=== PATIENT | female | born 1950 | race Caucasian/White ===

== ENCOUNTER 2025-04-22 03:04 | Emergency (ER) | payer MEDICARE, OTHER, SELFPAY ==
[2025-04-22] VITALS (42 sets, daily range): BP systolic 105–160; BP diastolic 50–81; PULSE 55–91; TEMP 36.9; O2SAT 79–100; BMI 20.5
--- NOTE | 2025-04-22 03:41 | CT_ITS ---
The [place] [id number] Patient Name: AAKASH REYNOSO MRN: [id number] date: 1950 Sex: F Assigned Patient Location: ED.MAIN Current Patient Location: ED.MAIN Accession/Order Number: [id number] Exam Date: 04/22/2025 07:49 Report Date: 04/22/2025 07:59 At the request of: PILLO KNOTT MD Procedure: CT abdomen pelvis w con CT Abdomen and Pelvis withcontrast TECHNIQUE: Axial imaging with 2-D reconstruction.90 cc of Omnipaque 300. The CT exam was performed using one or more the following dose reduction techniques: Automated exposure control, adjustment of the MA and/or Kv according to patient size, or use of the iterative reconstruction technique. COMPARISON: 08/02/2021 History: Vomiting LIMITATIONS: None LOWER THORAX Unremarkable LIVER: Unremarkable GALLBLADDER: Cholelithiasis identified. BILE DUCTS: No dilatation SPLEEN: Unremarkable PANCREAS: Unremarkable ADRENAL GLANDS: Stable adenomatous change. KIDNEYS:Similar small renal cysts AORTA: No abdominal aortic aneurysm identified. Atherosclerosis. RETROPERITONEUM: No significant retroperitoneal abnormalities identified. MESENTERY:Unremarkable STOMACH:Unremarkable SMALL BOWEL: Moderate dilatation of multiple small bowel loops containing fluid and gas. Region of mild transition of distal small bowel near the terminal ileum. Regions of bowel anastomosis. APPENDIX: The appendix is normal. COLON: Distal diverticulosis nondistended colon containing fluid. URINARY BLADDER: Urinary bladder is unremarkable. REPRODUCTIVE SYSTEM: Reproductive structures are unremarkable. PNEUMOPERITONEUM: None PERITONEAL FLUID:None BONY STRUCTURES: Similar lumbar degeneration similar scoliosis. ABDOMINAL WALL: Unremarkable CT/CT abdomen pelvis w con IMPRESSION: Moderately distended fluid-filled small bowel loops with a smooth transition identified in distal bowel near terminal ileum. This may represent ileus versus partial obstruction. Complete obstruction not entirely excluded. Cholelithiasis. Impression dictated by: Fareed Marina M.D. 04/22/2025 7:59 AM Dictation Location: [place] [address] Electronically authenticated by: [id number] Y Date: 04/22/2025 07:59
--- NOTE | 2025-04-22 03:42 | ED.ABDPAIN1 ---
Documented by User: Johny Gibbons MD 04/24/25 19:29 HPI - Abdominal Pain General Chief Complaint: Abdominal Pain Stated Complaint: VOMITING, IN PAIN Time Seen by Provider: 04/22/25 03:38 Source: patient Mode of arrival: walk-in Limitations: no limitations History of Present Illness HPI narrative: patient presents from home complaining of recurrent vomiting and abdominal pain. Few episodes of diarrhea. No blood. Not short of breath. Feels weak Related Data Home Medications ?Medication ?Instructions ?Recorded ?Confirmed propranolol 80 mg tablet mg 04/22/25 topiramate 100 mg tablet mg 04/22/25 Allergies Allergy/AdvReac Type Severity Reaction Status Date / Time No Known Drug Allergies Allergy Verified 04/22/25 03:26 Review of Systems ROS Status of ROS 10 or more systems reviewed and unremarkable except as noted in history and below PFSH PFSH Social History Little interest or pleasure in doing things: not at all Feeling down, depressed, or hopeless: not at all Exam Constitutional Vital Signs, click to edit/add: Last Vital Signs Temp 98.5 F 04/22/25 03:27 Pulse 91 H 04/22/25 13:59 Resp 18 04/22/25 13:59 BP 106/50 04/22/25 13:59 Pulse Ox 97 04/22/25 13:59 O2 Del Method Room Air 04/22/25 03:27 Common normals: no apparent distress, average body habitus, oriented x3, no limitations, healthy appearing, alert and well nourished [facility] Common normals: normocephalic and head/scalp atraumatic Eye Common normals: EOMs intact bilaterally and conjunctivae normal Respiratory Common normals: normal respiratory effort, no retractions, no use of accessory muscles and clear to auscultation bilaterally Cardio Common normals: regular rate, regular rhythm, S1 normal heart sound and S2 normal heart sound GI Common normals: Normal to inspection, nondistended, normoactive bowel sounds present, soft to palpation and non-tender Extremity Common normals: normal to inspection and full ROM Neuro Common normals: oriented x3, CN's II-XII intact bilaterally, moves all extremities and no focal motor deficits Psych Appearance: grossly normal Course Vital Signs Vital signs: Vital Signs Pulse Oximetry 97 04/22/25 03:23 Temperature 98.5 F 04/22/25 03:27 Pulse Rate 91 H 04/22/25 13:59 Respiratory Rate 18 04/22/25 13:59 Blood Pressure 106/50 04/22/25 13:59 Pulse Oximetry 97 04/22/25 13:59 Oxygen Delivery Method Room Air 04/22/25 03:27 MDM - Abdominal Pain Lab Data Labs: Lab Results 04/22/25 04/22/25 Range/Units 03:55 05:45 WBC 15.3 H (4.0-11.0) 10^3/uL RBC 3.39 L (4.20-5.40) 10^6/uL Hgb 11.4 L (12.0-16.0) g/dL Hct 34.4 L (36.0-48.0) % MCV 101.5 H (81.0-99.0) fL MCH 33.6 (26.7-34.0) pg MCHC 33.1 (29.9-35.2) g/dL RDW 14.6 (11.0-15.0) % Plt Count 205 (150-450) 10^3/uL MPV 11.1 (9.5-13.5) fL Neut % (Auto) 84.5 H (43.0-75.0) % Lymph % (Auto) 9.0 L (20.5-60.0) % Dent % (Auto) 3.6 (1.7-12.0) % Eos % (Auto) 2.2 (0.9-7.0) % Baso % (Auto) 0.3 (0.2-2.0) % Neut # (Auto) 12.9 H (1.4-6.5) 10^3/uL Lymph # (Auto) 1.4 (1.2-3.8) 10^3/uL Dent # (Auto) 0.6 (0.3-0.8) 10^3/uL Eos # (Auto) 0.3 (0.0-0.7) 10^3/uL Baso # (Auto) 0.0 (0.0-0.1) 10^3/uL Abs Immat Gran (auto) 0.06 H (0.00-0.03) 10^3/uL Imm/Tot Granulo (auto) 0.4 (0.0-0.5) % Sodium 145 (136-145) mmol/L Potassium 3.5 (3.5-5.1) mmol/L Chloride 106 (98-107) mmol/L Carbon Dioxide 27.2 (21.0-32.0) mmol/L Anion Gap 15.3 BUN 25.0 H (7.0-18.0) mg/dL Creatinine 1.10 H (0.55-1.02) mg/dL Est GFR ( Amer) 59 L (>=60 mL/min/1.73m^2) Est GFR (Non-Af Amer) 48 L (>=60 mL/min/1.73m^2) BUN/Creatinine Ratio 22.7 Glucose 156 H (74-106) mg/dL Lactate 1.0 (0.4-2.0) mmol/L Calcium 10.3 H (8.5-10.1) mg/dL Total Bilirubin 0.5 (0.2-1.0) mg/dL AST 20 (15-37) U/L ALT 18 (14-59) U/L Alkaline Phosphatase 65 (46-116) U/L Troponin I High Sens <4.0 L (4.0-51.3) pg/mL Total Protein 7.7 (6.4-8.2) g/dL Albumin 3.9 (3.4-5.0) g/dL Globulin 3.8 g/dL Albumin/Globulin Ratio 1.0 Lipase 29.0 (16.0-77.0) U/L Urine Color Lt. yellow (YELLOW) Urine Clarity Clear (CLEAR) Urine pH 7.0 (5.0-9.0) Ur Specific [place] 1.010 (1.005-1.025) Urine Protein Negative (NEG/TRACE) mg/dL Urine Glucose (UA) Negative (NEGATIVE) mg/dL Urine Ketones Negative (NEGATIVE) mg/dL Urine Occult Blood Negative (NEGATIVE) Urine Nitrite Negative (NEGATIVE) Urine Bilirubin Negative (NEGATIVE) Urine Urobilinogen 0.2 (0.2-1.0) EU/dL Ur Leukocyte Esterase Trace A (NEGATIVE) Urine RBC 0-2 (0-2) #/HPF Urine WBC 5-10 A (NONE SEEN) #/HPF Ur Squamous Epith Cells Few A (NONE/RARE) #/LPF Urine Crystals Seen A (None Seen) #/HPF Amorphous Sediment Few Urine Bacteria Small A (NONE SEEN) #/HPF Urine Casts None seen (NONE SEEN) #/LPF Urine Mucus None seen (NONE SEEN) Ur Culture Indicated? Yes-[facility] [place] Discharge Plan Discharge Chief Complaint: Abdominal Pain Clinical Impression: Ileus, Partial obstruction of small intestine Patient Disposition: [facility] Time of Disposition Decision: 11:43 Discharge location: [facility] Discharge Date/Time: 04/22/25 15:01 Documented by User: Va Gomez MD 04/22/25 15:05 HPI - Abdominal Pain General Chief Complaint: Abdominal Pain Stated Complaint: VOMITING, IN PAIN Time Seen by Provider: 04/22/25 03:38 Related Data Home Medications ?Medication ?Instructions ?Recorded ?Confirmed propranolol 80 mg tablet mg 04/22/25 topiramate 100 mg tablet mg 04/22/25 Allergies Allergy/AdvReac Type Severity Reaction Status Date / Time No Known Drug Allergies Allergy Verified 04/22/25 03:26 PFSH PFSH Social History Little interest or pleasure in doing things: not at all Feeling down, depressed, or hopeless: not at all Exam Constitutional Vital Signs, click to edit/add: Last Vital Signs Temp 98.5 F 04/22/25 03:27 Pulse 91 H 04/22/25 13:59 Resp 18 04/22/25 13:59 BP 106/50 04/22/25 13:59 Pulse Ox 97 04/22/25 13:59 O2 Del Method Room Air 04/22/25 03:27 Course Vital Signs Vital signs: Vital Signs Pulse Oximetry 97 04/22/25 03:23 Temperature 98.5 F 04/22/25 03:27 Pulse Rate 91 H 04/22/25 13:59 Respiratory Rate 18 04/22/25 13:59 Blood Pressure 106/50 04/22/25 13:59 Pulse Oximetry 97 04/22/25 13:59 Oxygen Delivery Method Room Air 04/22/25 03:27 MDM - Abdominal Pain MDM Narrative Medical decision making narrative: The patient care transferred to nm at 7 AM awaiting the results of the CAT scan: CT of the abdomen pelvis shows possible partial small bowel obstruction or ileus the patient is feeling much better after initial treatment with Zofran we did place NG tube and the x-ray postplacement is adequate The plan initially was to admit the patient for observation but after Discussion with Dr Aviles and because we do not have general surgery in our facility I did discuss the case with the in [facility] but did not have any bed available for now as there is still 6 pending cases in ED , the patient had the plan discussed with her and the fact that she has to be observed in a facility that has general surgery pt then requested to be transferred to [facility] and I spoke with Dr.Gary Lubin and he accepted the patient awaiting bed assignment. Patient was placed on the IV maintenance fluid at 90 cc/h of normal saline and she was kept n.p.o. Lab Data Labs: Lab Results 04/22/25 04/22/25 Range/Units 03:55 05:45 WBC 15.3 H (4.0-11.0) 10^3/uL RBC 3.39 L (4.20-5.40) 10^6/uL Hgb 11.4 L (12.0-16.0) g/dL Hct 34.4 L (36.0-48.0) % MCV 101.5 H (81.0-99.0) fL MCH 33.6 (26.7-34.0) pg MCHC 33.1 (29.9-35.2) g/dL RDW 14.6 (11.0-15.0) % Plt Count 205 (150-450) 10^3/uL MPV 11.1 (9.5-13.5) fL Neut % (Auto) 84.5 H (43.0-75.0) % Lymph % (Auto) 9.0 L (20.5-60.0) % Dent % (Auto) 3.6 (1.7-12.0) % Eos % (Auto) 2.2 (0.9-7.0) % Baso % (Auto) 0.3 (0.2-2.0) % Neut # (Auto) 12.9 H (1.4-6.5) 10^3/uL Lymph # (Auto) 1.4 (1.2-3.8) 10^3/uL Dent # (Auto) 0.6 (0.3-0.8) 10^3/uL Eos # (Auto) 0.3 (0.0-0.7) 10^3/uL Baso # (Auto) 0.0 (0.0-0.1) 10^3/uL Abs Immat Gran (auto) 0.06 H (0.00-0.03) 10^3/uL Imm/Tot Granulo (auto) 0.4 (0.0-0.5) % Sodium 145 (136-145) mmol/L Potassium 3.5 (3.5-5.1) mmol/L Chloride 106 (98-107) mmol/L Carbon Dioxide 27.2 (21.0-32.0) mmol/L Anion Gap 15.3 BUN 25.0 H (7.0-18.0) mg/dL Creatinine 1.10 H (0.55-1.02) mg/dL Est GFR ( Amer) 59 L (>=60 mL/min/1.73m^2) Est GFR (Non-Af Amer) 48 L (>=60 mL/min/1.73m^2) BUN/Creatinine Ratio 22.7 Glucose 156 H (74-106) mg/dL Lactate 1.0 (0.4-2.0) mmol/L Calcium 10.3 H (8.5-10.1) mg/dL Total Bilirubin 0.5 (0.2-1.0) mg/dL AST 20 (15-37) U/L ALT 18 (14-59) U/L Alkaline Phosphatase 65 (46-116) U/L Troponin I High Sens <4.0 L (4.0-51.3) pg/mL Total Protein 7.7 (6.4-8.2) g/dL Albumin 3.9 (3.4-5.0) g/dL Globulin 3.8 g/dL Albumin/Globulin Ratio 1.0 Lipase 29.0 (16.0-77.0) U/L Urine Color Lt. yellow (YELLOW) Urine Clarity Clear (CLEAR) Urine pH 7.0 (5.0-9.0) Ur Specific [place] 1.010 (1.005-1.025) Urine Protein Negative (NEG/TRACE) mg/dL Urine Glucose (UA) Negative (NEGATIVE) mg/dL Urine Ketones Negative (NEGATIVE) mg/dL Urine Occult Blood Negative (NEGATIVE) Urine Nitrite Negative (NEGATIVE) Urine Bilirubin Negative (NEGATIVE) Urine Urobilinogen 0.2 (0.2-1.0) EU/dL Ur Leukocyte Esterase Trace A (NEGATIVE) Urine RBC 0-2 (0-2) #/HPF Urine WBC 5-10 A (NONE SEEN) #/HPF Ur Squamous Epith Cells Few A (NONE/RARE) #/LPF Urine Crystals Seen A (None Seen) #/HPF Amorphous Sediment Few Urine Bacteria Small A (NONE SEEN) #/HPF Urine Casts None seen (NONE SEEN) #/LPF Urine Mucus None seen (NONE SEEN) Ur Culture Indicated? Yes-[facility] [place] Discharge Plan Discharge Chief Complaint: Abdominal Pain Clinical Impression: Ileus, Partial obstruction of small intestine Patient Disposition: [facility] Time of Disposition Decision: 11:43 Discharge location: [facility] Discharge Date/Time: 04/22/25 15:01
[2025-04-22 04:03] LABS: Basophils Percent Auto 0.3 % (0.2-2.0); Eosinophils Absolute Auto 0.3 10^3/uL (0.0-0.7); Eosinophils Percent Auto 2.2 % (0.9-7.0); Hematocrit 34.4 % (36.0-48.0); Hemoglobin 11.4 g/dL (12.0-16.0); Immature Granulocytes Abs Auto 0.06 10^3/uL (0.00-0.03); Immature Granulocytes Pct Auto 0.4 % (0.0-0.5); Lymphocytes Absolute Auto 1.4 10^3/uL (1.2-3.8); Mean Corpuscular HGB Conc 33.1 g/dL (29.9-35.2); Mean Corpuscular Hemoglobin 33.6 pg (26.7-34.0); Mean Corpuscular Volume 101.5 fL (81.0-99.0); Mean Platelet Volume 11.1 fL (9.5-13.5); Monocytes Absolute Auto 0.6 10^3/uL (0.3-0.8); Monocytes Percent Auto 3.6 % (1.7-12.0); Neutrophils Absolute Auto 12.9 10^3/uL (1.4-6.5); Neutrophils Percent Auto 84.5 % (43.0-75.0); Platelet Count 205 10^3/uL (150-450); Red Blood Count 3.39 10^6/uL (4.20-5.40); Red Cell Distribution Width 14.6 % (11.0-15.0); White Blood Count 15.3 10^3/uL (4.0-11.0)
[2025-04-22] MEDS: 0.9 % SODIUM CHLORIDE 1,000 ML 999 ML IV (04:12)
[2025-04-22] MEDS: ONDANSETRON PF 4 MG/2 ML VIAL IV (04:15)
[2025-04-22] MEDS: MORPHINE SULFATE 2 MG/ML SYRINGE IV (04:16)
[2025-04-22 04:18] LABS: Alanine Aminotransferase 18 U/L (14-59); Albumin Level 3.9 g/dL (3.4-5.0); Alkaline Phosphatase 65 U/L (46-116); Anion Gap 15.3; Aspartate Amino Transferase 20 U/L (15-37); BUN Creatinine Ratio 22.7; Bilirubin Total 0.5 mg/dL (0.2-1.0); Calcium 10.3 mg/dL (8.5-10.1); Carbon Dioxide 27.2 mmol/L (21.0-32.0); Chloride 106 mmol/L (98-107); Estimated GFR (African America 59 (>=60 mL/min/1.73m^2); Estimated GFR (Non-African Ame 48 (>=60 mL/min/1.73m^2); Globulin 3.8 g/dL; Glucose 156 mg/dL (74-106); Potassium 3.5 mmol/L (3.5-5.1); Sodium 145 mmol/L (136-145); Total Protein 7.7 g/dL (6.4-8.2)
[2025-04-22 04:22] LABS: Troponin I High Sensitivity <4.0 pg/mL (4.0-51.3)
[2025-04-22 05:54] LABS: Bilirubin Urine NEGATIVE (NEGATIVE); Blood Urine NEGATIVE (NEGATIVE); Clarity Urine CLEAR (CLEAR); Color Urine LT. YELLOW (YELLOW); Glucose Urine UA NEGATIVE (NEGATIVE); Ketones Urine NEGATIVE (NEGATIVE); Leukocyte Esterase Urine TRACE (NEGATIVE); Nitrite Urine NEGATIVE (NEGATIVE); Protein Urine NEGATIVE (NEG/TRACE); Urobilinogen Urine 0.2 EU/dL (0.2-1.0)
[2025-04-22 06:05] LABS: Amorphous Sediment Urine FEW; Bacteria Urine SMALL #/HPF (NONE SEEN); Cast Seen? NONE SEEN #/LPF (NONE SEEN); Crystals Seen? Seen #/HPF (None Seen); Mucus Urine NONE SEEN (NONE SEEN); RBC Urine 0-2 #/HPF (0-2); Squamous Epithelial Cell Urine FEW #/LPF (NONE/RARE); Urine Culture Indicated YES-FRMC
--- NOTE | 2025-04-22 09:17 | XR_ITS ---
The [address] [address] Patient Name: AAKASH REYNOSO MRN: [id number] date: 1950 Sex: F Assigned Patient Location: ER Current Patient Location: ER Accession/Order Number: [id number] Exam Date: 04/22/2025 09:34 Report Date: 04/22/2025 09:37 At the request of: RUDOLPH DAVENPORT MD Procedure: XR abdomen 1V SINGLE VIEW ABDOMEN 0925 hours COMPARISON: CT 04/22/2025 CLINICAL DATA: NG tube placement. AP erect view of the lower chest and abdomen was obtained. This demonstrates an NG tube extending into the stomach. The side-port is a couple centimeters beyond the GE junction. The lung bases are clear. No dilated bowel is visualized in the [id number]. XR/XR abdomen 1V IMPRESSION: NG TUBE WITHIN THE STOMACH. Impression dictated by: Jessenia Haines M.D. 04/22/2025 9:37 AM Dictation Location: [place] [address] Electronically authenticated by: [id number] Y Date: 04/22/2025 09:37
[2025-04-22] MEDS: 0.9 % SODIUM CHLORIDE 1,000 ML 90 ML IV (11:10)
--- NOTE | 2025-04-22 14:50 | PC.NURSE ---
Report given to Tawny emt with [facility]
== END 2025-04-22 15:01 | disposition short-term general hospital (02) ==
PROVIDERS: Emergency Provider Internal Medicine; PCP Family Medicine
DX: K56.600 Partial intestinal obstruction, unspecified as to cause (principal); K56.7 Ileus, unspecified; R82.998 Other abnormal findings in urine
CPT/HCPCS: 36415; 74018; 74177; 80053; 81001; 83605; 83690; 84484; 85025; 87086; 96361; 96374; 96375; 99285; J2270; J2405; Q9967

== ENCOUNTER 2025-07-22 13:10 | Outpatient (OUT) | payer MEDICARE, OTHER, SELFPAY ==
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
== END 2025-07-22 13:11 | disposition home or self-care (01) ==
LOC: PM 13:11
PROVIDERS: PCP Family Medicine; Visit Provider Nurse Practitioner
DX: M48.062 Spinal stenosis, lumbar region with neurogenic claudication (principal); M54.6 Pain in thoracic spine; M79.18 Myalgia, other site; M47.816 Spondylosis without myelopathy or radiculopathy, lumbar region
CPT/HCPCS: 72070; G0463

== ENCOUNTER 2025-07-22 14:48 | Outpatient (OUT) | payer MEDICARE, OTHER, SELFPAY ==
--- NOTE | 2025-07-22 15:04 | XR_ITS ---
The [address] [address] Patient Name: AAKASH REYNOSO MRN: [id number] date: 1950 Sex: F Assigned Patient Location: [facility] Current Patient Location: [facility] Accession/Order Number: [id number] Exam Date: 07/22/2025 15:15 Report Date: 07/22/2025 23:25 At the request of: KARON LANG NP Procedure: XR thoracic spine 2V XR thoracic spine 2V 07/22/2025 3:26 PM SIGNS AND SYMPTOMS: ^Thoracic Pain PROTOCOLS: 3 views of the thoracic spine COMPARISON: None FINDINGS: There is preservation of vertebral body heights and intervertebral disc spaces. There is a dextro convex curvature. The bones are otherwise in anatomic alignment No evidence of fracture or bony destructive lesion. XR/XR thoracic spine 2V IMPRESSION: No fracture or subluxation. There is a dextro convex curvature. Impression dictated by: Waylon Ramon M.D. 07/22/2025 11:25 PM Dictation Location: [place] [address] Electronically authenticated by: [id number] Y Date: 07/22/2025 23:25
== END 2025-07-22 14:49 | disposition home or self-care (01) ==
LOC: RAD 14:50
PROVIDERS: PCP Family Medicine; Visit Provider Nurse Practitioner
DX: M54.6 Pain in thoracic spine (principal)
CPT/HCPCS: 72070

== ENCOUNTER 2025-07-28 13:53 | Outpatient (RCR) | payer MEDICARE, OTHER, SELFPAY | END 2025-09-17 09:26 | disposition home or self-care (01) | LOC: PT 13:53 | PROVIDERS: PCP Family Medicine; Visit Provider Nurse Practitioner | DX: M54.6 Pain in thoracic spine (principal); M48.062 Spinal stenosis, lumbar region with neurogenic claudication | CPT/HCPCS: 97012; 97110; 97112; 97163; G0283 ==

== ENCOUNTER 2025-09-09 13:41 | Outpatient (OUT) | payer MEDICARE, OTHER, SELFPAY ==
--- OUTSIDE RECORDS SUMMARY | 2025-09-02 19:51 | XMS_ITS | Continuity of Care Document ---
Author Organization [facility] Address [address] [place] [address] Phone Care Team Providers Care Stem Lead Former Name Role Phone Cassie Tejada MD Primary Care Provider Cassie Tejada MD Referring Provider Terry Hardwick MD Attending Provider [phone] Astrid Merrill APRN Attending Provider Cassie Tejada MD Attending Provider [phone] Maryam Christianson MD Attending Provider Nick Posada MD Attending Provider [phone] Terry Hardwick MD Referring Provider Elissa Bowman MD Attending Provider [phone] Care Teams Patient Care Team Team Status: Active Member Role/Relationship Status Dates Cassie Tejada MD Primary Care Provider Active Visit Care Team Team Status: Inactive Member Role/Relationship Status Dates Cassie Tejada MD Primary Care Provider Active Start: June 23, 2025 End: June 23, 2025Esperanza Camarillo ProviderActiveStart: June 23, 2025 End: June 23Barrett Liu ProviderActiveStart: June 23, 2025 End: June 23, 2025 Visit Care Team Team Status: Inactive Member Role/Relationship Status Dates Cassie Tejada MD Primary Care Provider Active Start: June 23, 2025 End: June 23ephen Tann , MDAttending ProviderActiveStart: June 23, 2025 End: June 23, 2025 Visit Care Team Team Status: Inactive Member Role/Relationship Status Dates Cassie Tejada MD Primary Care Provider Active Start: June 29, 2025 End: June 29trishMiguel Posada ProviderActiveStart: June 29, 2025 End: June 29, 2025 Visit Care Team Team Status: Inactive Member Role/Relationship Status Dates Cassie Tejada MD Primary Care Provider Active Start: July 07, 2025 End: July 07, 2025Stjanene Hardwick , KAYttending ProviderActiveStart: July 07, 2025 End: July 07, 2025 Visit Care Team Team Status: Inactive Member Role/Relationship Status Dates Cassie Tejada MD Primary Care Provider Active Start: July 12, 2025 End: July 12, 2025Barrett Camarillo ProviderActiveStart: July 12, 2025 End: July 12, 2025 Visit Care Team Team Status: Inactive Member Role/Relationship Status Dates Cassie Tejada MD Primary Care Provider Active Start: July 14, 2025 End: July 14, 2025ImaMaria D Johnsonending ProviderActiveStart: July 14, 2025 End: July 14, 2025 Patient Care Team Team Status: Active Member Role/Relationship Status Dates Cassie Tejada MD Primary Care Provider Active Start: August 10, 2025 Maria D Pfeifferending ProviderActiveStart: August 10, 2025 Patient Care Team Team Status: Active Member Role/Relationship Status Dates Cassie Tejada MD Primary Care Provider Active Start: September 02, 2025 Esperanza Arroyo ProviderActiveStart: September 02, 2025 Terry Hardwick MDOther ProviderActiveStart: September 02, 2025 Barrett Vickers ProviderActiveStart: September 02, 2025 Chief Complaint and Reason for Visit Chief Complaint Admit Date Atherosclerotic heart disease June 1:32pm I25.10 June 23, 2025 1: 34pm Follow up after MRI *VIKRAM SB TO ND June 29, 2025 12:55pm R00.1 R53.873 R07.9 July 07, 2025 3:06pm Wellness July 12, 2025 1:27pm Refer: constipation/get established. Sep tember 2024 11:31am I25.10 R07.9 R94.31 R00.1 R00.1 R07.9 R5 3.83 September 02, 2025 9:28am Reason for Visit Admit Date Abnormal EKG June 23, 2025 1: 32pm Bradycardia June 23, 2025 1: 32pm Cardiac murmur, previously undiagnosed A ugust 2024 1:32pm Chest pain June 23, 2025 1: 32pm Fatigue June 23, 2025 1: 32pm Abnormal MRI, lumbar spine June 29, 2025 12:55pm Benign essential tremor June 29 12:55pm Low back pain June 29, 2025 12 :55pm Polyneuropathy June 29, 2025 12 :55pm Vertigo June 29, 2025 12 :55pm Abnormal MRI, lumbar spine July 1:27pm Benign essential tremor July 12 025 1:27pm Medicare annual wellness visit, subseque nt July 12, 2025 1:27pm Screening mammogram for breast cancer Se pt2024 1:27pm Change in bowel habits July 14 025 11:31am Diarrhea July 14, 2025 11:31am Reason for Referral Type Reason(s) Provider Provider Contact Information P rovider Address Start Date Altered bowel habits Diarrhea R19.4 - Change in bowel habit,R19.7 - Diarrhea, btlmwzdqbhoM68.4 - Change in bowel habit,R19.7 - Diarrhea, unspecified[facility] Health Concerns Concerns Start Date Thin low body weight elderly female would be at elevated risk for bleeding complications on a potential future aspirin regimen. Allergies, Adverse Reactions, Alerts Allergen Type Severity Reaction Last Updated Verified Status Comments ibandronate sodium Allergy Unknown Hives 2024 12:21pm Yes Active primidoneAllergyUnknownHivesSe2024 12:21pmYesActiveOnset Date: 05/14/2016, Onset Date: 02/27/2016gabapentinAllergyUnknownDizzinessSept2024 12:21pmYesActivetrouble focusing, vision changespregabalinAllergy UnknownDizzinessSeptember 2024 12:21pmYesActive Social History Smoking Status Status Start Date End Date Date of Observa tion Ex-smoker (finding) August 03, 2025 12:22pm Observation Status Observation Response Date of Response Legal Sex Female (finding) [facility] 1949 Family History Relationship Condition Age at Onset Recorded Date/T juanito brother Unknown fatherFamily history of lung cancerUnknownDeceasedUnknownMalignant neoplasm UnknownmotherDeceasedUnknownDementiaUnknownCerebral aneurysmUnknown Problems Active Problems Problem Diagnosis/Recorded Date Onset Date Status C omments Change in bowel habits July 14, 2025 11:44am Unknow n Active Abnormal MRI, lumbar spineAugust 2024 3:16pmUnknownActiveUTI (urinary tract infection)September 18, 2024 7:14amUnknownActiveMedicare annual wellness visit, subsequentSeptember 2024 11:51amUnknownActiveScreening for colon cancerJanuary 2024 3:36pmUnknownActiveBenign essential tremorAugust 2023 3:55pmUnknownActivePeripheral neuralgiaAugust 2023 2:20pmUnknownActive Screening mammogram for breast cancerNovember 2023 3:19pmUnknownActiveLow back painAugust 2024 2:20pmUnknownActiveFatigueAugust 2024 2:22pm UnknownActiveInadequate oral nutritional intakeJuly 2024 12:17pmUnknown ActiveCAD (coronary artery disease)May 17, 2025 12:55pmUnknownActive BradycardiaAugust 2024 2:22pmUnknownActiveDiarrheaJuly 2024 8:57am UnknownActiveDiarrheaSeptember 2024 11:40amUnknownActiveHistory of colostomy reversalJuly 2024 12:57pmUnknownActiveLeukocytosisJuly 2024 1:45amUnknownActiveLow serum vitamin U63Oxuw 2024 12:19pmUnknown ActiveVertigoAugust 2024 2:19pmUnknownActivePolyneuropathyAugust 2024 2:19pmUnknownActiveAbnormal EKGAugust 2024 2:22pmUnknownActivePartial small bowel obstructionJuly 2024 12:57pmUnknownActiveChest painAugust 2024 2:22pmUnknownActiveConstipationJuly 2024 12:51pmUnknownActive Cardiac murmur, previously undiagnosedAugust 2024 2:22pmUnknownActive Inactive/Resolved Problems Problem Diagnosis/Recorded Date Onset Date Status C omments UTI (urinary tract infection) May 16, 2025 11:17pm Unkn own Resolved Mass of axillary tail of left breastJanuary 2018 12:09pmUnknownResolved Problem List clean-up per request of Phys. EHR CmteIntractable nausea and vomitingJuly 2024 11:17pmUnknownResolved Medications Medication Status Dose Units Route Directions Qty Days Refills S tart Date Stop Date End Date Reason(s) Instructions Adherence Sod Picosulf-Mag Ox-Citric Ac (Clenpiq) 10 mg-3.5 gram- 12 gram/175 mL solution Discontinued 175 ML PO Daily 1 1 0 Deniz quiroz 2024 1:00am December 17, 2024 12:27pmplease follow instructions provided by Dr. Dietz's office.Ondansetron 4 mg tablet,epnxdoofclsjohEqkfwlbygvmb4JSOMF5C246Idlf 2024 12:00amJuly 2024 6:14pmPropranolol 80 mg lhlyvrJpnlwvaxiygy18OMZF Twice fwfqh626Ezrptg 13th, 2025 12:00amA2024 1:40pmTopiramate 100 mg wgvzthBrfexq595AVERAterf yglyq15192Goriksk 2024 10:17amUnknownFluticasone Propionate 50 mcg/actuation spray,usfbdwrravTpihhe8EQUCPAOMVNUFPFEXwsxc887 August 16, 2025 11:12amadminister into each nostrilUnknownPropranolol 80 mg mlmzqgJfskibvnbrtt77CGRUMmtno dailyJuly 2024 12:00amJuly 2024 12:42pmTopiramate 100 mg kftnpaAghzjfhmvang394IJQCKnpmxEews 2024 12:00am June 29, 2025 2:26pmLoperamide 2 mg JbtxzldMtxmhp3LYAWX9I as needed for Bzozlxcv0344Igjd 2024 12:00amUnknownTopiramate 100 mg tabletDiscontinued 100MGPOTwice dailyAugust 2024 2:26pmOctober 2024 10:17amVitamin B Complex jwpajjoXmruvx9VIOVULzmybOadmvllum 30th, 2025 12:00amUnknownAspirin (Adult Aspirin Regimen) 81 mg tablet,delayed release (DR/EC)Uxipob57TENSSquqs August 03, 2025 12:00amUnknownPropanolDiscontinuedJanuary 2018 1:00am July 02, 2024 10:16amToprimateDiscontinuedJanuary 2018 1:00amNovember 2023 9:23amMeclizine 25 mg cvhhirDrjudfqehqtz52ZWAVVxrzlPbuexhre 2024 1:00amJuly 2024 4:35pmPregabalin 75 mg npryfycIhzxewsrzqnc83IFXTRtpcn daily December 17, 2024 1:00amJuly 2024 1:32pmMultivitamin (One Daily Multivitamin) yxxtfkRfskuf2HKWCNPvsxdDenrft 2024 12:00amUnknownPropranolol 80 mg cziysjBamydu34RFLRLjwxx dailyAugust 2024 1:40pmUnknownMagnesium Aspart,Citrate,Oxide 400 mg magnesium capsuleDiscontinuedMGPOAugust 2023 12:00amAugust 2023 2:10pmGabapentin 300 mg hkxhrttYtimbkritehv944IXWQVwiuv at bedtimeAugust 2023 12:00amAugust 2023 2:20pmPregabalin (Lyrica) 25 mg dyepmtpElwwwjgjkbii76XSLCCcwnp at qtefmgy44281Aekfjk 2024 12:00am September 10, 2024 2:53pmPeripheral neuralgia Neuralgia and neuritis, unspecifiedPropranolol 20 mg vqtedzIvigbmmintya05ZHNV Kcltb559Qaknrs 2023 12:00amJuly 2024 6:13pmTopiramate (Topamax) 50 mg dkfhlsEnyolokeuixe77NFHOEmuop dailySeptember 10, 2024 1:00amJuly 2024 6:13pmFreeTextSi tablet Orally Twice a day; Note: Source Status: Not- Taking\PRN2 QAM and 2 QHS; Provider: Terrell Matthews ( )Potassium Chloride 10 mEq tablet,ER particles/bswfrbedPdmoczdnaecw9KADJDKjidz daily September 10, 2024 1:00amNovember 2023 2:52pmFreeTextSi tablet with food Orally Twice a day; Note: Source Status: Start; Refills: 0; Qty: 30Tablet; Provider: Terrell Matthews ECalcium Carbonate-Vitamin D3 600 mg-5 mcg (200 unit) vsnqmsWhfhms0SRJQOBdwpvNttxcxey 7th, 2024 1:00amMedication Name: Calcium + D; Note: Source Status: Not-Taking\PRN; Provider: Terrell Matthews ( ) UnknownBiotin 5 mg jfuslbNxmsat9AZJEKwpblBkcrcomi 7th, 2024 1:00amUnknown Cyanocobalamin (Vitamin B-12) 1,000 mcg tpgssbzIpsljt2925RZOGSJosylRtouxzsl 7th, 2024 1:00amUnknownSulfamethoxazole-Trimethoprim 800-160 mg tabletDiscontinued1 TABPOTwice bdzdk094CemkihgxSeptember 10, 2024 1:00amFebruary 2024 12:28pm Fluticasone Propionate 50 mcg/actuation spray,doictwkbdkKjzvuahvwqcg2PCKQQ ALYQACDQMRWvzsr631Wbadcobwi 8th, 2025 12:00amOctober 2024 11:13am administer into each nostrilvitamin b complexDiscontinuedPOSept2024 12:00amSeptember 2024 12:22pm Immunizations Immunization Event Date Not Given Reason Dose Number [employer] Operator Lot Number Reason(s) Given Vaccine Information Statement (VIS) Detail Administration Location COVID-19 Sylwia Antonio (Pfizer) September 03, 2021 COVID-19 mRNASylwia (Pfizer)April 06, 2022Fluzone TIV High-Dose 65YR+ July 12, 2025U8800[facility] unspecified formulationSeptember 2016influenza, unspecified formulationSeptneumococcal Conjugate Vaccine, 13 valentSeptember 2016Pneumococcal Conjugate Vaccine, 20 valentSeptember 2021 Procedures Procedure Date Performed Status CT heart calcium score wo July 07, 2025 3: 16pm completed Relevant Diagnostic Tests and/or Laboratory Data Laboratory Results Test Collection Date/Time Result Date/Time Result Interpretation Reference Range Result Comment Performing Site Albumin (Send Out) August 10, 2025 3:30pm August 10, 2 025 3:30pm 4.09 g/dL 3.43-5.41Serum ImmunofixationOct2024 3:30pmOct2024 3:30pmNo M protein is identified.No M protein is identified.Free Bonaparte/Lambda Light Chain RatioOct2024 3:30pmOctober 2024 3:30pm1.540.26-1.65CA 15-3 AntigenOct2024 3:30pmOctober 2024 2:02pm17.0 U/mL<26.0The CA 15-3 test methodology used is the Electrochemiluminescence Immunoassay by [employer].Results obtained with different methods or kits cannot be used interchangeably.Serum Total ProteinOct2024 3:30pmOctober 2024 2:02pm7.0 g/dL6.3-8.0FolateOct2024 3:30pmOctober 2024 3:30pm>20.0 ng/mL>4.7A result of > 20 ng/mL is not necessarily indicative of a pathologic or treatable condition: it reflects a limitation of the test methodology.Assay reference range: 4.8 to 24.2 ng/mL. Suitable fordetection of folate deficiency.Reference:Folate III (Folate III) [package insert V 1.0 Iraqi]. [employer]vin [employer], [place], [place]: September 2015.Vitamin B12 LevelAugust 10, 2025 3:30pmOctober 2024 2:02pm>2000 pg/mLAbove high ccahtu925-1787Erxn LevelAugust 10, 2025 3:30pmOctober 2024 1:42pm72 ug/yT27-202Pinxbsvfgpg August 10, 2025 3:30pmOctober 2024 1:95qp561 mg/kE03-889Nqjztcd Stimulating Hormone 3rd GenOct2024 3:30pmOctober 2024 3:30pm3.940 mIU/L0.270-4.200FerritinAugust 10, 2025 3:30pmOctober 2024 1:18ej287.0 ng/mLAbove high uvetep23.7-205.1Alanine Aminotransferase (ALT/SGPT)August 10, 2025 3:30pmOctober 2024 3:30pm16 U/L7-38Basophils # (Auto)August 10, 2025 3:30pmOctober 2024 3:30pm0.03 k/uL<0.93Rzhpv-7-FhuingganNsuptiz 7th, 2025 3:30pmOctober 2024 3:30pm0.28 g/dL0.18-0.43Leuk/Lymph Sign Pathologist (Misc)August 10, 2025 3:30pmOctober 2024 3:30pmReviewed by Shelley Eugene MDFrconnie Lambda Light Chains, QuantAugust 10, 2025 3:30pmOctober 2024 3:30pm23.9 mg/L5.7-26.3Rarely, increased serum free light chains levels may not be detected or accurately quantified due to prozone phenomenon or in high viscosity samples using this immunoturbidimetric assay. Correlation with other laboratory results and clinical findings is recommended. The Lambda Free Light Chain was performed using the Binding Site Optilite immunoturbidimetric method. Result obtained with differentassay methods or kits cannot be used interchangeably.Total Iron Binding CapacityAugust 10, 2025 3:30pmOctober 2024 1:00ox871 ug/kA275-214QdnesymXxaifnp 7th5 3:30pmOctober 2024 3:30pm4.2 g/dL3.9-4.9Basophils (%) (Auto)August 10, 2025 3:30pmOctober 2024 3:30pm0.5 %Sgtgl-2-DqsfskkiqSsfszqj 7th, 2025 3:30pmOctober 2024 3:30pm0.65 g/dL0.42-0.98Free Bonaparte Light Chains, QuantOct2024 3:30pm August 10, 2025 3:30pm36.8 mg/LAbove high normal3.3-19.4Rarely, increased serum free light chains levels may not be detected or accurately quantified due to prozone phenomenon or in high viscosity samples using this immunoturbidimetric assay. Correlation with other laboratory results and clinical findings is recommended. The Bonaparte Free Light Chain was performed using the Binding Site Optilite immunoturbidimetric method. Result obtained with different assay methods or kits cannot be used interchangeably.Iron Saturation August 10, 2025 3:30pmOctober 2024 1:42pm30.0 %15.0-57.0Aspartate Amino Transf (AST/SGOT)August 10, 2025 3:30pmOctober 2024 3:30pm22 U/L13-35 Eosinophils # (Auto)August 10, 2025 3:30pmOctober 2024 3:30pm0.30 k/uL <0.46Beta GlobulinsOct2024 3:30pmOctober 2024 3:30pm1.09 g/dL 0.61-1.17Total BilirubinOct2024 3:30pmOctober 2024 3:30pm0.2 mg/dL0.2-1.3Eosinophils (%) (Auto)August 10, 2025 3:30pmOctober 2024 3:30pm4.9 %Gamma GlobulinsOct2024 3:30pmOctober 2024 3:30pm0.90 g/dL0.53-1.51Carbon Dioxide LevelAugust 10, 2025 3:30pmOctober 2024 3:30pm22 mmol/X94-47ZhqwhjnfaqFcxhxic 7th, 2025 3:30pmOct2024 3:30pm 10.9 g/dLBelow low soaxsg19.5-15.5Protein Electrophoresis NoteOct2024 3:30pmOct2024 3:30pmNo definitive M protein is identified on protein electrophoresis.No definitive M protein is identified on protein electrophoresis.Chloride LevelOct2024 3:30pmOct2024 3:30pm 110 mmol/LAbove high kuwjcl66-251Yyrqcjgzlvv # (Auto)August 10, 2025 3:30pm August 10, 2025 3:30pm2.84 k/uL1.00-4.00Protein Electrophoresis M-SpikeOct2024 3:30pmOct2024 3:30pm0.00 g/dL<=0.00CreatinineOct2024 3:30pmOct2024 3:30pm1.21 mg/dLAbove high normal0.58-0.96 Lymphocytes (%) (Auto)August 10, 2025 3:30pmOctober 2024 3:30pm46.5 % Miscellaneous Test 6August 10, 2025 3:30pmOct2024 3:30pmSee comment Not Applicable.Random GlucoseAugust 10, 2025 3:30pmOct2024 3:30pm89 mg/wT29-62Yoq Stateless Diabetes Association (ADA) provides guidance for cutoff values for fasting glucose andrandom glucose. The ADA defines fasting as no caloric intake for at least 8 hours. Fasting plasma glucose results between 100 to 125 mg/dL indicate increased risk for diabetes (prediabetes).Fasting plasma glucose results greater than or equal to 126 mg/dL meet the criteria for diagnosis of diabetes. In the absence of unequivocal hyperglycemia, results should be confirmed by repeat testing. In a patient with classic symptoms of hyperglycemia or hyperglycemic crisis, random plasma glucose resultsgreater than or equal to 200 mg/dL meet the criteria for diagnosis of diabetes.Reference: Standardsof Medical Care in Diabetes 2016, Stateless Diabetes Association. Diabetes Care. 2016.39(Suppl 1).Monocytes # (Auto)August 10, 2025 3:30pm August 10, 2025 3:30pm0.64 k/uL<0.87Miscellaneous Test CommentOct2024 3:30pmOctober 2024 3:30pmReviewed by Shelley Eugene, LEONELotassium LevelOct2024 3:30pmOctober 2024 3:30pm3.6 mmol/LBelow low normal 3.7-5.1Neutrophils # (Auto)August 10, 2025 3:30pmOct2024 3:30pm2.29 k/uL1.45-7.50Neutrophils (%) (Auto)August 10, 2025 3:30pmOct2024 3:30pm37.4 %Sodium LevelOct2024 3:30pmOctober 2024 3:92we130 mmol/LAbove high gnyveh925-872Cvuzntnzp Red Blood Cells #August 10, 2025 3:30pmOct2024 3:30pm<0.01 k/uL<0.01Blood Urea NitrogenAugust 10, 2025 3:30pmOctober 2024 3:30pm30 mg/dLAbove high normal7-21Platelet Count August 10, 2025 3:30pmOct2024 3:70pw506 k/gI480-300Byatwjmn PhosphataseAugust 10, 2025 3:30pmOctober 2024 3:30pm62 U/N62-653Xjuk Corpuscular HemoglobinOct2024 3:30pmOctober 2024 3:30pm32.9 pg 26.0-34.0Calcium LevelOct2024 3:30pmOctober 2024 3:30pm9.4 mg/dL 8.5-10.2Mean Corpuscular Hemoglobin ConcentOct2024 3:30pmOctober 2024 3:30pm32.6 g/dL30.5-36.0Anion GapAugust 10, 2025 3:30pmOctober 2024 3:30pm13 mmol/L8-15Mean Corpuscular VolumeOct2024 3:30pmOctober 2024 3:08qy493.9 fLAbove high chqywz11.0-100.0Estimated GFR (CKD-EPI)August 10, 2025 3:30pmOct2024 3:30pm47 mL/min/1.73m???Below low normal>=60 Estimated Glomerular Filtration Rate (eGFR) is calculated using the 2020 CKD-EPI creatinine equation. This equation utilizes serum creatinine, sex, and age as parameters. The creatinine assay has traceable calibration to isotope dilution- mass spectrometry. Refer to KDIGO guidelines for clinical interpretation. In patients with unstable renal function, e.g. those with acute kidney injury, the eGFRmay not accurately reflect actual GFR.Red Blood CountOctober 2024 3:30pmOct2024 3:30pm3.31 m/uLBelow low normal3.90-5.20Hematocrit August 10, 2025 3:30pmOctober 2024 3:30pm33.4 %Below low kpbiwj84.0-46.0 Monocytes (%) (Auto)August 10, 2025 3:30pmOct2024 3:30pm10.5 % Corrected White Blood CountOct2024 3:30pmOct2024 3:30pm6.11 k/uL3.70-11.00Nucleated RBC Relative Count (auto)August 10, 2025 3:30pmOctober 2024 3:30pm0.0 /100{WBC}Red Cell Distribution WidthOct2024 3:30pm August 10, 2025 3:30pm14.4 %11.5-15.0Mean Platelet VolumeOct2024 3:30pmOct2024 3:30pm10.8 fL9.0-12.7Differential CommentOct2024 3:30pmOctober 2024 3:30pmAutoImmature Granulocyte # (Auto)August 10, 2025 3:30pmOct2024 3:30pm<0.03 k/uL<0.10Immature Granulocyte % (Auto) August 10, 2025 3:30pmOctober 2024 3:30pm0.2 % Diagnostic Imaging Reports Author Vishal Alston [facility] CenterAuthoredSeptember 2024 4:52pmReport Dictated Date/TimeDictated ByStatusRadiology ReportSeptember 2024 4:52pm Vishal Alston Jr [facility] [place] [address] [place] [id number] Scan Report Signed Patient: Yary Schuler MR#: [id number] : 1950 Acct:[id number] Age/Sex: 74 / F ADM Date: 5 Loc: CT Room: Type: [facility] Attending Dr: Terry Hardwick MD Copies to: Terry Hardwick MD~ Ordering Provider: Terry Hardwick MD Date of Service: 07/07/25 CT/CT heart calcium score wo: R00.1 - Bradycardia, unspecified CT heart calcium score w/o contrast REASON FOR EXAM: Bradycardia. Fatigue. Chest pain. TECHNIQUE: Prospective gated imaging of the heart were obtained for calcium evaluation of the coronary arteries. Agatston score was calculated. The CT exam was performed using one or more the following dose reduction techniques: Automated exposure control, adjustment of the MA and/or Kv according to patient size, or use of the iterative reconstruction technique. COMPARISON:None FINDINGS: LEFT MAIN: 0 LEFT ANTERIOR DESCENDIN.28 CIRCUMFLEX: 182.96 RIGHT CORONARY ARTERY: 0 TOTAL AGATSTON CALCIUM SCORE: 198.25 This calcium score places the patient at the 71st percentile. EXTRACARDIAC STRUCTURES: No evidence of mediastinal or hilar lymphadenopathy. No pericardial effusion. Visualized lungs demonstrate no acute process. No lung nodule is seen. Limited images of the upper abdomen demonstrate no acute findings. CT/CT heart calcium score wo IMPRESSION: No significant extracardiac CT findings. CALCIUM SCORE INTERPRETATION (100-299) Risk is moderately increased. Treatment recommendation - moderate to high intensity statin plus ASA 81mg. Source: January 2018 - Coronary artery calcium data and reporting system. An expert consensus document of the Society of Cardiovascular Computed Tomography) Impression dictated by: Vishal Alston Jr., D.O. 07/07/2025 4:54 PM Dictation Location: [place] [address] Transcribed By: [facility] 07/07/25 1654 Dictated By: Vishal Alston Jr, DO 07/07/25 1652 Signed By: <Electronically signed by Vishal Alston Jr, DO in [place]> 07/07/25 1654 Vital Signs Vital Reading Result Reference Range Collection Date/Time Height 60 [in_i] June 23, 2025 1:20owNzggyo04.72 kgAugust 2024 1:48pmHeart Rate67 /min 60-100August 2024 1:48pmRespiratory rate18 /ryy58-96Zqgplk 2024 1:48pmOxygen saturation by Pulse swimblfy97 %95-100August 2024 1:48pmBP Uwywkuau562 mm[Hg]100-140August 2024 1:48pmBP Infacndua07 mm[Hg]60-100 June 23, 2025 1:48pmBMI (Body Mass Index)20.1 kg/s2Zdhrhn 2024 1:48pm Yxijez58 [in_i]June 29, 2025 2:06tvNkqpmd32.62 kgAugust 2024 2:21pm Heart Rate60 /scp13-037Pvwgvm 26th, 2025 2:21pmBP Snluhnoq532 mm[Hg]100-140 June 29, 2025 2:21pmBP Pygkwojzg75 mm[Hg]60-100August 2024 2:21pmBMI (Body Mass Index)20.5 kg/s9Hnhiqe 2024 2:23wsXfcuav58 [in_i]July 12, 2025 1:51zgHfyico69.62 kgSeptember 2024 1:56pmHeart Rate58 /bku62-655 July 12, 2025 1:56pmBP Cdzmbqoz826 mm[Hg]100-140Sept2024 1:56pm BP Glkhxxfkd06 mm[Hg]60-100September 2024 1:56pmBMI (Body Mass Index)20.5 kg/a9Azhoqecso2024 1:06jwCsjoek03 [in_i]July 14, 2025 11:31amWeight 47.62 kgSept2024 11:31amHeart Rate58 /xut36-163Ctacvgxer 10th, 2025 11:31amBP Nqohsdch976 mm[Hg]100-140Sept2024 11:31amBP Ahgexpkty30 mm[Hg]60-100September 2024 11:31amBMI (Body Mass Index)20.5 kg/u4Qrnwpcatd 2024 11:31amHeart Rate60 /epc28-673Aqlyurx 2024 11:54amBP Systolic 149 mm[Hg]100-140October 2024 11:54amBP Immyivggj56 mm[Hg]60-100October 2024 11:54am Advance Directives Advance Directive Response Recorded Date/ Time Advance Directives No September 1:15pm Insurance Providers Guarantor Yary Quiles Schuler Address [address] [place], [place] [id number] Info.Home Phone: Coverage Status Update:2025 Payer Group Member ID Coverage Type Subscriber Relationship to Subscriber Effective Date Expiration Date [facility] Id: [id number] A Sparks Id: [id number] [address] [place] [id number] Home Phone: Email: Declined [id number] [id number] A Sparks Id: [id number] [address] [place] [id number] Home Phone: Email: Declined [phone] Encounters Encounter Location(s) Arrival/Admit Date Discharge/Departure Date Discharge/Departure Disposition Provider(s) Departed Physician/ Provider Office Visit -[facility] Cardiology June 23, 2025 1:32pm June 23, 2025 2:31pm Discharged to home care or self care (routine discharge) Romel Arroyo MD Departed Clinical -EKG Cardiology June 23, 2025 1:34pm June 23, 2025 1:35pm Discharged to home care or self care (routine discharge) Romel Arroyo MD Departed Physician/ Provider Office Visit -[facility] June 29, 2025 12:55pm June 29, 2025 3:02pm Discharged to home care or self care (routine discharge) Romel Dodge APRN Departed Clinical -CT Scan [facility] July 07, 2025 3:06pm July 07, 2025 3:07pm Discharged to home care or self care (routine discharge) Romel Arroyo MD Departed Physician/ Provider Office Visit -[facility] July 12, 2025 1:27pm July 12, 2025 2:28pm Discharged to home care or self care (routine discharge) Cassie Tejada MD Departed Physician/ Provider Office Visit -[facility] July 14,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
--- OUTSIDE RECORDS SUMMARY | 2025-09-09 13:46 | XMS_ITS | Clinical Summary ---
Author Organization [facility] Address [address] [place] [address] Care Team Providers Care Machine Assembler For Puller Over Name Role Phone Cassie Tejada MD Primary Care Provider [phone] Allergies No known active allergies Medications MedicationSigDispense QuantityRefillsLast FilledStart DateEnd DateStatus cyanocobalamin (Vitamin B-12) 1000 MCG tablet Take 1,000 mcg by mouth DailyActive topiramate (Topamax) 100 MG tablet Indications:Tremor, essentialTake 1 tablet (100 mg) by mouth in the morning and 1 tablet (100 mg) before bedtime. 180 tablet 4Active propranolol (Inderal) 80 MG tablet Indications:TremorTAKE 1 TABLET BY MOUTH TWICE A DAY 180 tablet 5Active gabapentin (Neurontin) 100 MG capsule Indications:PolyneuropathyTake 1 capsule (100 mg) by mouth in the morning and 1 capsule (100 mg) before bedtime. 60 capsule 5Active Active Problems ProblemNoted DateDiagnosed DateTremor, essential Overview (07/03/2024): Patient with tremor consistent tremor treated with Topamax and Propranolol. Notes her mother had this and her children are developing slight tremor as well. Notes her tremor is increasing during the day and increases with stress. She is taking Topamax as prescribed currently and propranolol. Her tremor persists. Insomnia, unspecifiedHeadacheGait abnormalityCerebral embolism with cerebral infarctionTremorDepression Overview (07/03/2024): Patient with symptoms to suggest depression. She notes that these symptoms increase during the winter time. She trialed Prozac and did not tolerate due to side effects of fatigue. She is currently following with [facility]. She was started on risperdone by Dr. Gehlot but this made her tremors worse so she stopped taking this. Her depression has overall improved and is stable. BackacheSyndrome affecting cervical regionVitamin D deficiency Immunizations ImmunizationAdministration DatesNext DuePneumococcal Conjugate PCV 131 Family History Medical HistoryRelationNameCommentsDiabetesMaternal GrandmotherAneurysmMother DementiaMotherCancerOtherRelationNameStatusCommentsMaternal GrandmotherMother Other Social History Tobacco UseTypesPacks/DayYears UsedDateSmoking Tobacco: NeverSmokeless Tobacco: Never Tobacco Cessation:Counseling Given: Not Answered Alcohol UseStandard Drinks/WeekCommentsNever0 (1 standard drink = 0.6 oz pure alcohol)caffeine: 1-2 cups per dayCommentsUnknownSex and Gender InformationValueDate RecordedSex Assigned at BirthNot on fileLegal SexFemale 01/16/2023 7:17 PM EDTGender IdentityNot on fileSexual OrientationNot on file Last Filed Vital Signs Vital SignReadingTime TakenCommentsBlood Qjrfiajq001/7205 1:41 PM EDT Pulse--Temperature--Respiratory Rate--Oxygen Saturation--Inhaled Oxygen Concentration--Ofclog74 kg (108 lb)03/16/2025 1:41 PM JMMGqukyw704.4 cm (5') 03/16/2025 1:41 PM EDTBody Mass Index21.0903/16/2025 1:41 PM EDT Plan of Treatment [place] [address] Care Teams Team MemberRelationshipSpecialtyStart [place] [address] [place] [phone] PCP - GeneralFamily Medicine03/16/25
--- OUTSIDE RECORDS SUMMARY | 2025-09-09 13:46 | XMS_ITS | Clinical Summary ---
Author Organization [facility] Address [address] [place] [address] Phone Care Team Providers Care Wooden Furniture Polisher Name Role Phone Unavailable Primary Care Provider Unavailabl e Social History Tobacco UseTypesPacks/DayYears UsedDateSmoking Tobacco: Never Assessed CommentsUnknownSex and Gender InformationValueDate RecordedSex Assigned at Not on fileLegal BblBuyvkd47/26/2022 12:07 AM ESTGender IdentityNot on file Sexual OrientationNot on file Plan of Treatment Not on file
--- OUTSIDE RECORDS SUMMARY | 2025-09-09 13:46 | XMS_ITS | Clinical Summary ---
Author Organization [facility] Address [address] [place] [address] Care Team Providers Care Mannequin Maker Name Role Phone Unavailable Primary Care Provider Unavailabl e Social History Tobacco UseTypesPacks/DayYears UsedDateSmoking Tobacco: Never AssessedUT Safety & EnvironmentAnswerDate RecordedFear of Current or Ex-PartnerNot on file 12/26/2023Emotionally AbusedNot on file12/26/2023hysically AbusedNot on file 12/26/2023Sexually AbusedNot on file12/26/2023hysically or Sexually AbusedNot on file12/26/2023CommentsUnknownSex and Gender InformationValueDate RecordedSex Assigned at BirthNot on fileLegal MkyCmijut46/30/2022 12:40 AM EDT Gender IdentityNot on fileSexual OrientationNot on file Plan of Treatment Not on file
--- OUTSIDE RECORDS SUMMARY | 2025-09-09 13:46 | XMS_ITS | Clinical Summary ---
Author Organization [facility] Address [address] [place] [address] Care Team Providers Care Material Combiner Name Role Phone Cassie Tejada MD Primary Care Provider [phone] Allergies No known active allergies Medications MedicationSigDispense QuantityRefillsLast FilledStart DateEnd DateStatus Propranolol 20 MG tablet Take 1 tablet by mouth 3 (three) times a day. 90 tablet ctive Topiramate 100 MG tablet Take 1 tablet by mouth 2 times daily. 60 tablet ctive Acetaminophen 325 MG tablet Take 2 tablets by mouth every 6 hours as needed for Mild Pain, Moderate Pain or Severe Pain.ctive magnesium oxide 400 (240 Mg) MG Take 1 tablet by mouth 2 times daily. 60 tablet ctive Loperamide 2 MG capsule Take 2 capsules by mouth 4 times daily. 2 stat then 1 cap after each loose stool 240 capsule ctive faMOTIdine 20 MG tablet Take 1 tablet by mouth every 12 hours. 60 tablet ctive guar gum Pack Take 1 packet by mouth 3 (three) times a day. 100 Each ctive Melatonin 3 MG tablet Take 3 tablets by mouth every evening at 6 PM.ctive Multivitamin w/ minerals tablet Take 1 tablet by mouth daily.ctive Ondansetron 4 MG tablet Take 1 tablet by mouth as needed for Nausea / Vomiting. 30 tablet 05/03/2023ctive QUEtiapine 100 MG tablet Take 1 tablet by mouth at bedtime. 30 tablet ctive Skin Protectants, Misc. (Eucerin) Cream cream Cleanse with blue bath wipes. Apply to BLE and right arm/elbow and over healing / newly epithelialized wounds. Patient may self-administer.05/03/2023ctive Water For Irrigation, Sterile (Water po liquid, free water,) Solution Take 200 mL by mouth 4 times daily.ctive Active Problems ProblemNoted DateDiagnosed OjyeKduudmlbgcg86/28/2023ritical polytrauma 03/14/2023cute kidney kcxhpt0602/15/2023cute on chronic sycskf8002/15/2023Elevated CK02/15/20231563Davrhpekupwhg90/14/2023Serum ammonia ckryozmwh70/14/2023 Xsuiyrkmduyyjsqtnv97/14/2023Traumatic abdominal wutepp1902/15/2023Splenic laceration, grade II02/15/2023losed fracture of multiple ribs of both sides 02/15/2023Flail chest02/15/2023Traumatic afdtioowyhko46/14/2023Right Lumbar (L1, L2) transverse process tqplyhzx27/14/2023Lactic /14/2023Metabolic nwadsmpn38/14/6786Frivdhqxiaeu93/14/5668Hnbzhuheraktlzex83/14/2023oagulopathy 02/15/2023ontusion of both lungs02/15/2023Tobacco abuse02/15/2023Shock 02/15/2023cute respiratory failure with pbccbam2602/15/20234355Brluzndysdak82/14/2023 Vslfah7102/11/2023 Resolved Problems ProblemNoted DateDiagnosed DateResolved DateAnemia, blood loss02/15/2023 02/15/2023 Immunizations ImmunizationAdministration DatesNext DueHIB Vaccine, PRP-OMP02/25/2023 Meningococcal B,RECOMB ADJ (MenB-4C) NUKNCNS0602/25/2023Meningococcal Vaccine (Oligosaccharide) ACW&Y-135 (MENVEO)02/25/2023neumococcal Conjugate 20-Valent Peftbso6102/25/2023 Social History Tobacco UseTypesPacks/DayYears UsedDateSmoking Tobacco: FormerCigarettesQuit: 2008Smokeless Tobacco: Never Tobacco Cessation:Counseling Given: Not Answered Alcohol UseStandard Drinks/WeekCommentsYes0 (1 standard drink = 0.6 oz pure alcohol)not oftenPRAPARE - TransportationAnswerDate RecordedIn the past 12 months, has lack of transportation kept you from medical appointments or from getting medications?No05/03/2023In the past 12 months, has lack of transportation kept you from meetings, work, or from getting things needed for daily living?No05/03/2023CommentsUnknownSex and Gender InformationValue Date RecordedSex Assigned at BirthNot on fileLegal AhmGvjlfs91/09/2023 7:17 PM EDTGender IdentityNot on fileSexual OrientationNot on file Last Filed Vital Signs Vital SignReadingTime TakenCommentsBlood Sqvjxjin95/4606 8:11 AM EDT Msqba680205/03/2023 8:11 AM NSJWgslgxpuaby12 ??C (98.6 ??F)05/03/2023 8:11 AM EDT Respiratory Cczc141805/03/2023 8:11 AM EDTOxygen Zdeocbfzev86%05/03/2023 8:11 AM EDTInhaled Oxygen Concentration--Wbwjhi08.7 kg (111 lb 11.2 oz)04/29/2023 1:33 AM GYAFwcyus034.8 cm (4' 11.37 )04/30/2023 3:02 PM EDTper chartBody Mass Index 22.2805 11:46 PM EDT Plan of Treatment Health MaintenanceDue DateLast DoneCommentsDEXA SCAN ALJUROBRXR1949 HEPATITIS C VIRUS NNDVVTGUW43/20/1450ZCOLOGI1949TDAP (ADULT)1968 CERVICAL CANCER SCREENING FSZSGNBITI73/20/1970MAMMOGRAM SCREENING DISCUSSION 1989COLORECTAL CANCER SCREENING CWVPIBGKPE36/20/1994ZOSTER (SHINGLES) VACCINE (1 of 2)1999RSV VACCINE (1 - 1-dose 75+ series)4COVID-19 VACCINE ( season)506/01/2022, 09/03/2021, 01/06/2021, Additional history existsINFLUENZA VACCINE (#1)509/06/2022, 07/12/2021, 11/16/2019, Additional history existsPNEUMOCOCCAL VACCINE SERIESCompleted 02/25/2023, 07/22/2022, 08/04/2020, Additional history existsHEP B VACCINEAged OutNo longer eligible based on patient's age to complete this topic Additional Health Concerns InfectionOnset DateLast MfqsukduzMPZ29/22//01/2023 Insurance MemberSubscriberPlan / Payer (Effective 2021-Present)Name:YARY REYNOSO Relation to Subscriber:SelfName:Yary Reynoso Payer ID:Not on file Group ID:Not on file Type:Not on file Address[address] [address] [place] [id number] on file on file Advance Directives For more information, please contact: [phone] (7:30 AM - 6PM [facility], Saturday-Saturday) TypeDate RecordedPatient RepresentativeExplanationHealthCare Power of Student Life Advisor 04/17/2023 * Full Code (Latest Code Status on File) Date ActivatedDate InactivatedComments03/14/2023 3:56 PMConversation at 4:45PM on 02/11/23 with daughter Esther and myself (Melia Hanson MD) reaffirming Yary's wishes to be full code. Will update code status to reflect this. * Full Code Date ActivatedDate InactivatedComments02/11/2023 5:02 PM03/14/2023 3:56 PM Conversation at 4:45PM on 02/11/23 with daughter Esther and myself (Melia Hanson MD) reaffirming Yary's wishes to be full code. Will update code status to reflect this. Care Teams Team MemberRelationshipSpecialtyStart DateEnd Date Cassie Tejada MD PCP - GeneralFamily Medicine02/11/23
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
== END 2025-09-09 13:42 | disposition home or self-care (01) ==
LOC: PM 13:42
PROVIDERS: PCP Family Medicine; Visit Provider Nurse Practitioner
DX: M48.062 Spinal stenosis, lumbar region with neurogenic claudication (principal); M54.6 Pain in thoracic spine; M79.18 Myalgia, other site; M47.816 Spondylosis without myelopathy or radiculopathy, lumbar region
CPT/HCPCS: G0463

== ENCOUNTER 2025-09-13 10:57 | Day surgery (SDC) | payer MEDICARE, OTHER, SELFPAY ==
--- OUTSIDE RECORDS SUMMARY | 2025-09-13 11:01 | XMS_ITS | Clinical Summary ---
Author Organization [facility] Healthcare Address [address] [place] [address] Care Team Providers Care Telemarketer Name Role Phone Cassie Tejada MD Primary Care Provider [phone] Allergies No known active allergies Medications MedicationSigDispense [...] of fatigue. She is currently following with [facility]. She was started on risperdone by Dr. [...] Last Filed Vital Signs Vital SignReadingTime TakenCommentsBlood Segqdgyn329/7205 1:41 PM EDT Pulse--Temperature--Respiratory Rate--Oxygen Saturation--Inhaled Oxygen Concentration--Isinqx31 kg (108 lb)03/16/2025 1:41 PM NLBBxroau631.4 cm (5') 03/16/2025 1:41 PM EDTBody Mass Index21.0903/16/2025 1:41 PM EDT Plan of Treatment [place] [id number] Care Teams Team MemberRelationshipSpecialtyStart [place] [address] [place] [phone] PCP - GeneralFamily Medicine03/16/25
--- OUTSIDE RECORDS SUMMARY | 2025-09-13 11:01 | XMS_ITS | Clinical Summary ---
Author Organization [facility] Address [address] [place] [address] Phone Care Team Providers Care Doughnut Fryer Name Role Phone Unavailable Primary Care Provider Unavailabl e Social History Tobacco UseTypesPacks/DayYears UsedDateSmoking Tobacco: Never Assessed CommentsUnknownSex and Gender InformationValueDate RecordedSex Assigned at Not on fileLegal MczZyhhvq12/26/2022 12:07 AM ESTGender IdentityNot on file Sexual OrientationNot on file Plan of Treatment Not on file
--- OUTSIDE RECORDS SUMMARY | 2025-09-13 11:01 | XMS_ITS | Clinical Summary ---
Author Organization [facility] Address [address] [place] [address] Care Team Providers Care Maintenance Mechanic Helper Name Role Phone Cassie Tejada MD Primary Care Provider [phone] Astrid Person PA-C Unavailable [phone] Allergies Active AllergyReactionsCriticalityNoted NuhlMdbvtivdMwwlbgoxgjmPcfzkoc04/25/2025 WcfxgeozqJcqmoaj52/25/2025 Medications MedicationSigDispense QuantityRefillsLast FilledStart DateEnd DateStatus propranolol (INDERAL) 80 mg tablet Take 80 mg by mouth twice daily.Active CALCIUM CARBONATE/VITAMIN D3 (CALCIUM + D ORAL) Take 600 mg by mouth once daily.Active VITAMIN B COMPLEX (B-COMPLEX ORAL) Take by mouth once daily.Active primidone (MYSOLINE) 50 mg tablet Take 2 tablets at bedtime 180 tablet Active multivit-minerals/folic acid (ONE-A-DAY WOMEN'S 50 PLUS PO) Take by mouth.Active cyanocobalamin, vitamin B-12, (VITAMIN B-12 PO) Take by mouth.Active Aspirin 81 mg tab Take 81 mg by mouth.Active fluticasone propionate (FLONASE NASAL) Use in the nose.Active fexofenadine HCl (TRICIA ORAL) Take by mouth.Active Active Problems ProblemNoted DateDiagnosed DateHot ltmsiec4907/09/2014reast zplkhe8005/29/2013 Encounters DateTypeDepartmentCare UjhtDdpjbmsittq45/25/2025 4:00 PM EDTVisit (SP) Office Hematology/Oncology [address] [place] [address] [place] [address] Nick Posada MD Anemia, unspecified type (Primary Dx); Other abnormal tumor totmllq2307/29/20259404Fooaqf01/23/2025H&P External-NonCCF Provider, SANTOSH Nam 07/27/2025bstract Hematology/Oncology [address] [address] Aura Brooks MA from Last 3 Months Family History Medical HistoryRelationCommentsDiabetesMaternal GrandmotherAneurysmMother DementiaMotherStrokeMotherh/o tremor following anuersym rupture[other]Mother RelationStatusCommentsMaternal GrandmotherMotherDeceased Social History Tobacco UseTypesPacks/DayYears UsedDateSmoking Tobacco: NeverSmokeless Tobacco: NeverAlcohol UseStandard Drinks/WeekCommentsYes0 (1 standard drink = 0.6 oz pure alcohol)sociallyArea Deprivation IndexAnswerDate RecordedNational Score (1- 100), lower number is lower xmxk264008/10/2025State Score (1-10), lower number is lower lxxv746Data from: https://www.neighborhoodatlas.[facility].edu/. Last address used for gs[address] [place], [place] [address]/10/2025CommentsNoSex and Gender InformationValueDate RecordedSex Assigned at BirthNot on fileLegal SexFemale 10/05/2012 10:12 AM ESTGender IdentityNot on fileSexual OrientationNot on file Last Filed Vital Signs Vital SignReadingTime TakenCommentsBlood Hoxngdrp512/68007/29/2025 3:55 PM EDT Inegc573207/29/2025 3:55 PM NTEKtruqwwvjcm78.3 ??C (97.4 ??F)07/29/2025 3:55 PM EDTRespiratory Efcw851007/29/2025 3:55 PM EDTOxygen Grzddnszok21%07/29/2025 3:55 PM EDTInhaled Oxygen Concentration--Hxjpxr96.4 kg (106 lb 11.2 oz)07/29/2025 3:55 PM VLGLhcwnp579.9 cm (5' 1 )02/29/2016 4:12 PM EDTBody Mass Index20.16 02/29/2016 4:12 PM EDT Plan of Treatment DateTypeDepartmentCare Team (Latest Contact Info)Byxbkpywdof84/18/2025 1:40 PM ESTVisit (SP) Office Hematology/Oncology [address] [place] [address] [place] [address] Nick Posada MD [address] [place] [address] [place] [address] follow up in 3 monthsHealth MaintenanceDue DateLast DoneCommentsAnxiety Xydouxwah03/20/1967Depression Zwfvhdifu00/20/1967Hepatitis C Rrsatoznc16/20/1967 Bone Density Ngotwwmqe38/20/2014dvance Directive Olprswvqmv76/01/2025ovid-19 Vaccine ( season)5007/05/2024, 04/06/2022, 09/03/2021, Additional history existsDiabetes Ujusgnsix24/05/2025, 03/26/2024, 12/05/2023, Additional history existsDTaP,Tdap,Td Vaccine (2 - Td or Tdap) Pneumococcal Vaccine: 50+Ejgbmspph78/24/2023, 07/22/2022, 08/04/2020, Additional history existsRSV JnjkvmrHmyxrhrzr79/19/2024Shingrix LtfrypiLgbtqljix21/03/2025, 07/23/2024Influenza XjsorsdZqbagstjm22/08/2025, 07/05/2024, 07/12/2022, Additional history exists Procedures Procedure NamePriorityDate/TimeAssociated DiagnosisCommentsPROTEIN ELECTROPHORESIS SERUM (P)Avezcfl9608/10/2025 3:30 PM EDT Anemia, unspecified type PROTEIN, TOTAL (FOR SEPG)Igmvdmn2908/10/2025 3:30 PM EDT Anemia, unspecified type TSH PVFRawayij05/07/2025 3:30 PM EDT Anemia, unspecified type HAPTOGLOBIN BCEAngnebt73/07/2025 3:30 PM EDT Anemia, unspecified type CA 15-3 WJGEyuzqmm24/07/2025 3:30 PM EDT Anemia, unspecified type Other abnormal tumor markers KAPPA/LOPEZ,FREE,HHMTilyfsk09/07/2025 3:30 PM EDT Anemia, unspecified type IMMUNOFIXATION SCREEN, INQGXSypfeio82/07/2025 3:30 PM EDT Anemia, unspecified type PROTEIN ELECTROPHORESIS SERUM W/BFFPZTAhpfspk80/07/2025 3:30 PM EDT Anemia, unspecified type FOLATE BCPVIZrbcojv02/07/2025 3:30 PM EDT Anemia, unspecified type VITAMIN B12 CCXHICvqgkby90/07/2025 3:30 PM EDT Anemia, unspecified type IRON + DEGYRbnovpc31/07/2025 3:30 PM EDT Anemia, unspecified type FERRITIN USKXmmedug34/07/2025 3:30 PM EDT Anemia, unspecified type COMPREHENSIVE METABOLIC XCIKFKwfkyse20/07/2025 3:30 PM EDT Anemia, unspecified type CBC + PVWOXjaiflk90/07/2025 3:30 PM EDT Anemia, unspecified type EXTERNAL KGZZWYM0707/27/2025 1:54 PM EDT EXTERNAL VJMDQZT8107/27/2025 1:54 PM EDT EXTERNAL KTQVYVT0507/27/2025 1:54 PM EDT EXTERNAL YTNCISZ3007/27/2025 1:54 PM EDT EXTERNAL LAB07/27/2025 1:54 PM EDT EXTERNAL LAB07/27/2025 1:[address] OUTSIDE CD DICOM RGAWZY8007/07/2025 from Last 3 Months Results * IMMUNOFIXATION SCREEN, SERUM (08/10/2025 3:30 PM EDT)ComponentValueRef Range Test MethodAnalysis TimePerformed AtPathologist SignatureMPA ResultNo M protein is identified.No M protein is identified.08/12/2025 8:16 AM EDT [facility] LABStaff Review (MPA)Reviewed by Shelley Eugene MD08/12/2025 8:16 AM EDTCTR[facility] LABSpecimen (Source) Anatomical Location / LateralityCollection Method / VolumeCollection Time Received TimeBloodBLOOD SPECIMEN / UnknownVenipuncture / Alkmxwg4308/10/2025 3:30 PM EDT1 3:30 PM EDT Narrative Authorizing ProviderResult TypeResult StatusAdarslucie Posada MDLABORATORY Final ResultPerforming OrganizationAddressCity/State/ZIP CodePhone Number [facility] [address] [place] [address], * PROTEIN, TOTAL (FOR SEPG) (08/10/2025 3:30 PM EDT)ComponentValueRef RangeTest MethodAnalysis TimePerformed AtPathologist SignatureProtein, Total7.06.3 - 8.0 g/dL08/11/2025 2:02 PM EDTCTRINITY [facility] LABSpecimen (Source) Anatomical Location / LateralityCollection Method / VolumeCollection Time Received TimeBloodBLOOD SPECIMEN / UnknownVenipuncture / Vnlqeac7808/10/2025 3:30 PM EDT1 3:30 PM EDT Narrative Authorizing ProviderResult TypeResult StatusAdarslucie Posada MDLABORATORY Final ResultPerforming OrganizationAddressCity/State/ZIP CodePhone Number [facility] [address] [place] [address], [place] * PROTEIN ELECTROPHORESIS SERUM (P) (08/10/2025 3:30 PM EDT)ComponentValueRef RangeTest MethodAnalysis TimePerformed AtPathologist SignatureAlbumin for SPE 4.093.43 - 5.41 g/dL08/12/2025 8:50 AM [facility]DS[facility] LAB Alpha 1 Globulin0.280.18 - 0.43 g/dL08/12/2025 8:50 AM [facility] LABAlpha 2 Globulin0.650.42 - 0.98 g/dL08/12/2025 8:50 AM EDT [facility] LABBeta Globulin1.090.61 - 1.17 g/dL08/12/2025 8:50 AM [facility] LABGamma Globulin0.900.53 - 1.51 g/dL 08/12/2025 8:50 AM [facility] LABInterpretation (Prot Electro)No definitive M protein is identified on protein electrophoresis.No definitive M protein is identified on protein electrophoresis.08/12/2025 8:50 AM [facility] LABM-Protein Ncirfpac27/09/2025 8:50 AM EDT [facility] LABComment:Not Applicable.M-Protein Concentration 0.00<=0.00 g/dL08/12/2025 8:50 AM [facility] LABSPE Staff ReviewReviewed by Shelley Eugene MD08/12/2025 8:50 AM [facility] LABSpecimen (Source)Anatomical Location / LateralityCollection Method / VolumeCollection TimeReceived TimeBloodBLOOD SPECIMEN / Unknown Venipuncture / Fpdinid4308/10/2025 3:30 PM EDT1 3:30 PM EDT Narrative [facility] - 08/12/2025 8:50 AM EDT Serum electrophoresis test was performed using the [employer] V8 NEXUS capillary electrophoresis method. Results obtained with different assay methods or kits cannot be used interchangeably. Authorizing ProviderResult TypeResult StatusAdarsh Vennepureddy MDLABORATORY Final ResultPerforming OrganizationAddressCity/State/ZIP CodePhone Number [facility] [address] [facility] [address] [address], [place] * (ABNORMAL) KAPPA/LOPEZ,FREE,SER (08/10/2025 3:30 PM EDT)ComponentValueRef Range Test MethodAnalysis TimePerformed AtPathologist SignatureKappa Free, Serum36.8 (H)3.3 - 19.4 mg/L1 3:03 PM EDTCTRINITY [facility] LAB Comment: Rarely, increased serum free light chains levels may not be detected or accurately quantified due to prozone phenomenon or in high viscosity samples using this immunoturbidimetric assay. Correlation with other laboratory results and clinical findings is recommended. The [place] Free Light Chain was performed using the Binding Site Optilite immunoturbidimetric method. Result obtained with different assay methods or kits cannot be used interchangeably. Lambda Free, Serum23.95.7 - 26.3 mg/L1 3:03 PM EDTCTRINITY [facility] LABComment: Rarely, increased serum free light chains levels may not be detected or accurately quantified due to prozone phenomenon or in high viscosity samples using this immunoturbidimetric assay. Correlation with other laboratory results and clinical findings is recommended. The Lambda Free Light Chain was performed using the Binding Site Optilite immunoturbidimetric method. Result obtained with different assay methods or kits cannot be used interchangeably. ?? K/L Ratio, Serum1.540.26 - 1.6508/11/2025 3:03 PM EDSUMMA [facility]ALTH LABSpecimen (Source)Anatomical Location / LateralityCollection Method / VolumeCollection TimeReceived TimeBloodBLOOD SPECIMEN / UnknownVenipuncture / Rehpljh8008/10/2025 3:30 PM EDT1 3:30 PM EDT Narrative Authorizing ProviderResult TypeResult StatusAdarsh Vennepureddy MDLABORATORY Final ResultPerforming OrganizationAddressCity/State/ZIP CodePhone Number [facility] [address] [facility] [address] [place] [phone], * (ABNORMAL) VITAMIN B12 (08/10/2025 3:30 PM EDT)ComponentValueRef RangeTest MethodAnalysis TimePerformed AtPathologist SignatureVitamin B12>2,000(H)232 - 1,245 pg/mL08/11/2025 2:17 PM EDTCTRIN[facility] LABSpecimen (Source)Anatomical Location / LateralityCollection Method / VolumeCollection TimeReceived TimeBloodBLOOD SPECIMEN / UnknownVenipuncture / Cgtnkxz0108/10/2025 3:30 PM EDT1 3:30 PM EDT Narrative Authorizing ProviderResult TypeResult StatusAdarsh Swetha MDLABORATORY Final ResultPerforming OrganizationAddressty/State/ZIP CodePhone Number [facility] [address] [facility] [facility] [place] [phone], [place] * THYROID STIMULATING HORMONE (08/10/2025 3:30 PM EDT)ComponentValueRef Range Test MethodAnalysis TimePerformed AtPathologist SignatureTSH3.9400.270 - 4.200 mIU/L1 1:48 PM EDTCTRINITY [facility] LABSpecimen (Source) Anatomical Location / LateralityCollection Method / VolumeCollection Time Received TimeBloodBLOOD SPECIMEN / UnknownVenipuncture / Khgmhdl8908/10/2025 3:30 PM EDT1 3:30 PM EDT Narrative Authorizing ProviderResult TypeResult StatusAdalaverne Posada MDLABORATORY Final ResultPerforming OrganizationAddressCity/State/ZIP CodePhone Number [facility] [address] [place], [place] [phone], [place] * IRON AND TIBC (08/10/2025 3:30 PM EDT)ComponentValueRef RangeTest Method Analysis TimePerformed AtPathologist FrxpqrevxUejf3645 - 186 ug/dL08/11/2025 1:41 PM EDTCTRIN[facility] JOFEYDM947396 - 386 ug/dL08/11/2025 1:41 PM EDTCTRINITY [facility] LABTransferrin Qmvoqyxwjp33.015.0 - 57.0 %08/11/2025 1:41 PM EDTCTRIN[facility] LABSpecimen (Source) Anatomical Location / LateralityCollection Method / VolumeCollection Time Received TimeBloodBLOOD SPECIMEN / UnknownVenipuncture / Auqwqnl3608/10/2025 3:30 PM EDT10/05/2025 3:30 PM EDT Narrative Authorizing ProviderResult TypeResult StatusAdarslucie Posada MDLABORATORY Final ResultPerforming OrganizationAddressCity/State/ZIP CodePhone Number [facility] [address] [place] [address], * HAPTOGLOBIN (08/10/2025 3:30 PM EDT)ComponentValueRef RangeTest MethodAnalysis TimePerformed AtPathologist ZlcxbdfgbIdpruuqstci66200 - 238 mg/dL08/11/2025 1:41 PM EDTCTRIN[facility] LABSpecimen (Source)Anatomical Location / LateralityCollection Method / VolumeCollection TimeReceived Time BloodBLOOD SPECIMEN / UnknownVenipuncture / Llccjed4008/10/2025 3:30 PM EDT 08/10/2025 3:30 PM EDT Narrative Authorizing ProviderResult TypeResult StatusAdalaverne Posada MDLABORATORY Final ResultPerforming OrganizationAddressCity/State/ZIP CodePhone Number [facility] [address] [place] [address], * FOLATE, SERUM (08/10/2025 3:30 PM EDT)ComponentValueRef RangeTest Method Analysis TimePerformed AtPathologist SignatureFolate>20.0>4.7 ng/mL08/11/2025 2:17 PM EDTCTRINITY [facility] LABComment: A result of > 20 ng/mL is not necessarily indicative of a pathologic or treatable condition: it reflects a limitation of the test methodology. Assay reference range: 4.8 to 24.2 ng/mL. Suitable for detection of folate deficiency. Reference: Folate III (Folate III) [package insert V 1.0 Guamanian]. [employer], [place], [place]: September 2015. Specimen (Source)Anatomical Location / LateralityCollection Method / Volume Collection TimeReceived TimeBloodBLOOD SPECIMEN / UnknownVenipuncture / Unknown 08/10/2025 3:30 PM EDT1 3:30 PM EDT Narrative Authorizing ProviderResult TypeResult StatusAdarslucie Posada MDLABORATORY Final ResultPerforming OrganizationAddressCity/State/ZIP CodePhone Number [facility] [address] [place] [phone], * (ABNORMAL) FERRITIN (08/10/2025 3:30 PM EDT)ComponentValueRef RangeTest Method Analysis TimePerformed AtPathologist EicaxmvzeSjfmhwtc377.0(H)14.7 - 205.1 ng/mL08/11/2025 1:48 PM EDTCTRINITY [facility] LABSpecimen (Source) Anatomical Location / LateralityCollection Method / VolumeCollection Time Received TimeBloodBLOOD SPECIMEN / UnknownVenipuncture / Dkitxzj0908/10/2025 3:30 PM EDT1 3:30 PM EDT Narrative Authorizing ProviderResult TypeResult StatusAdars Frankepredwood llc MDLABORATORY Final ResultPerforming OrganizationAddressCity/State/ZIP CodePhone Number [facility] [address] [place] [address], * (ABNORMAL) COMPREHENSIVE METABOLIC PANEL (08/10/2025 3:30 PM EDT)Component ValueRef RangeTest MethodAnalysis TimePerformed AtPathologist Signature Protein, Total7.26.3 - 8.0 g/dL08/10/2025 3:54 PM EDTNORTHCO[facility] LABAlbumin4.23.9 - 4.9 g/dL08/10/2025 3:54 PM EDTNORTHCOAST [facility] LABCalcium, Total9.48.5 - 10.2 mg/dL08/10/2025 3:54 PM EDTNORTHCOAST [facility] LABBilirubin, Total0.20.2 - 1.3 mg/dL 08/10/2025 3:54 PM EDTNORTHCOAST [facility] LABAlkaline Bligtnqxkho4127 - 123 U/L1 3:54 PM EDTNORTHCOAST [facility] AZXOOW2706 - 35 U/L1 3:54 PM EDTNORTHCOAST [facility] KBYVVB331 - 38 U/L1 3:54 PM EDTNORTHCAP[facility] AEYNgcvlng7934 - 99 mg/dL08/10/2025 3:[address] [facility] LABComment: The [place] Diabetes Association (ADA) provides guidance for cutoff values for fasting glucose andrandom glucose. The ADA defines fasting as no caloric intake for at least 8 hours. Fasting plasma glucose results between 100 to 125 mg/dL indicate increased risk for diabetes (prediabetes). Fasting plasma glucose results greater than or equal to 126 mg/dL meet the criteria for diagnosis of diabetes. In the absence of unequivocal hyperglycemia, results should be confirmed by repeat testing. In a patient with classic symptoms of hyperglycemia or hyperglycemic crisis, random plasma glucose results greater than or equal to 200 mg/dL meet the criteria for diagnosis of diabetes. Reference: Standards of Medical Care in Diabetes 2016, [place] [employer] Association. Diabetes Care. 2016.39(Suppl 1). BUN30(H)7 - 21 mg/dL08/10/2025 3:[address] [facility] LAB Creatinine1.21(H)0.58 - 0.96 mg/dL08/10/2025 3:[address] [facility] ETYSbqqsp206(H)136 - 144 mmol/L1 3:[address] [facility] LABPotassium3.6(L)3.7 - 5.1 mmol/L1 3:54 PM [facility] DGQVrkaumax125(H)98 - 107 mmol/L1 3:[address] [facility] IKKTY04710 - 30 mmol/L1 3:[address] [facility] LABAnion Chq539 - 15 mmol/L 08/10/2025 3:[address] [facility] LABEstimated Glomerular Filtration Rate47(L)>=60 mL/min/1.73m 08/10/2025 3:[address] [facility] LABComment:Estimated Glomerular Filtration Rate (eGFR) is calculated using the 2020 CKD-EPI creatinine equation. This equation utilizes serum creatinine, sex, and age as parameters. The creatinine assay has traceable calibration to isotope dilution- mass spectrometry. Refer to KDIGO guidelines for clinical interpretation. In patients with unstable renal function, e.g. those with acute kidney injury, the eGFRmay not accurately reflect actual GFR.Specimen (Source)Anatomical Location / LateralityCollection Method / VolumeCollection TimeReceived TimeBloodBLOOD SPECIMEN / UnknownVenipuncture / Blhsmra8608/10/2025 3:30 PM EDT1 3:30 PM EDT Narrative Authorizing ProviderResult TypeResult StatusAdarsh Vennepureddy MDLABORATORY Final ResultPerforming OrganizationAddressCity/State/ZIP CodePhone Number [facility] [address] [place] [address] * (ABNORMAL) COMPLETE BLOOD COUNT AND DIFFERENTIAL (08/10/2025 3:30 PM EDT) ComponentValueRef RangeTest MethodAnalysis TimePerformed AtPathologist SignatureWBC6.113.70 - 11.00 k/uL08/10/2025 3:37 PM EDTNORTMCLAREN PORT [facility] LABRBC3.31(L)3.90 - 5.20 m/uL08/10/2025 3:37 PM EDTNORTMCLAREN [facility] JAYFfdmuuesax44.9(L)11.5 - 15.5 g/dL08/10/2025 3:37 PM EDTNORTMCLAREN [facility] EMNPuxaiiswqc72.4(L)36.0 - 46.0 % 08/10/2025 3:37 PM EDTNORTMCLAREN [facility] YJYYZR113.9(H)80.0 - 100.0 fL08/10/2025 3:37 PM EDTNORTHCAPEX [facility] SIZLKA38.926.0 - 34.0 pg08/10/2025 3:37 PM EDTNORTMCLAREN [facility] EOEXLAR54.6 30.5 - 36.0 g/dL08/10/2025 3:37 PM EDTNORTMCLAREN [facility] LAB RDW-CV14.411.5 - 15.0 %08/10/2025 3:37 PM EDTNOST[facility] LABPlatelet Pmyel646989 - 400 k/uL08/10/2025 3:37 PM EDTNORTMCLAREN [facility] ALNPFK40.89.0 - 12.7 fL08/10/2025 3:37 PM EDTNOST. JO[facility] LABNeutrophils %37.4%08/10/2025 3:37 PM EDTST. [facility] LABAbs Neut2.291.45 - 7.50 k/uL08/10/2025 3:37 PM EDTNOST. [facility] LABLymphocytes %46.5%08/10/2025 3:37 PM EDTNOST. [facility] LABAbs Lymph2.841.00 - 4.00 k/uL08/10/2025 3:[address] [facility] LABMonocytes %10.5%08/10/2025 3:[address] LABAbs Mono0.64<0.87 k/uL08/10/2025 3:37 PM EDTNOST. [facility] LABEosinophils %4.9%08/10/2025 3:37 PM EDTNOST. [facility] LABAbs Eosin0.30<0.46 k/uL08/10/2025 3:37 PM EDTNOST. [facility] LABBasophils %0.5%08/10/2025 3:37 PM EDTNORTMCLAREN [facility] LABAbs Baso0.03<0.11 k/uL08/10/2025 3:37 PM EDTNORTMCL[facility]EN [facility] LABImmature Granulocytes %0.2% 08/10/2025 3:37 PM EDTNORTMCLAREN [facility] LABAbs Immature Gran <0.03<0.10 k/uL08/10/2025 3:37 PM EDTNOST. [facility] LABNRBC 0.0/100 WBC08/10/2025 3:37 PM EDTNORTMCLAREN [facility] LABAbsolute nRBC<0.01<0.01 k/uL08/10/2025 3:37 PM EDTNORTMCLAREN [facility] LAB Diff FnxiWmvf13/07/2025 3:37 PM EDTRTMCLAREN PORT [facility] LAB Specimen (Source)Anatomical Location / LateralityCollection Method / Volume Collection TimeReceived TimeBloodBLOOD SPECIMEN / UnknownVenipuncture / Cgjcwvg0108/10/2025 3:30 PM EDT1 3:30 PM EDT Narrative Authorizing ProviderResult TypeResult StatusAdarsh Swetha MDLABORATORY Final ResultPerforming OrganizationAddressCity/State/ZIP CodePhone Number [facility] [address] [place] [address] * CA 15-3 BLD (08/10/2025 3:30 PM EDT)ComponentValueRef RangeTest MethodAnalysis TimePerformed AtPathologist SignatureBreast CA 15-317.0<26.0 U/mL08/11/2025 2:02 PM EDTCTRINITY [facility]ALTH [facility] LABComment:The CA 15-3 test methodology used is the Electrochemiluminescence Immunoassay by [employer].Results obtained with different methods or kits cannot be used interchangeably.Specimen (Source)Anatomical Location / LateralityCollection Method / VolumeCollection TimeReceived TimeBloodBLOOD SPECIMEN / Unknown Venipuncture / Ueiwmsp7108/10/2025 3:30 PM EDT1 3:30 PM EDT Narrative Authorizing ProviderResult TypeResult StatusAdarsh Swetha MDLABORATORY Final ResultPerforming OrganizationAddressCity/State/ZIP CodePhone Number [facility] [address] [facility] [address] [address], [place] * EXTERNAL IMAGING (07/27/2025 1:54 PM EDT)Anatomical RegionLateralityModality Other Narrative Authorizing ProviderResult TypeResult StatusExternal Provider PA-CRADIOLOGYFinal Result * EXTERNAL IMAGING (07/27/2025 1:54 PM EDT)Anatomical RegionLateralityModality Other Narrative Authorizing ProviderResult TypeResult StatusExternal Provider PA-CRADIOLOGYFinal Result * EXTERNAL IMAGING (07/27/2025 1:54 PM EDT)Anatomical RegionLateralityModality Other Narrative Authorizing ProviderResult TypeResult StatusExternal Provider PA-CRADIOLOGYFinal Result * EXTERNAL IMAGING (07/27/2025 1:54 PM EDT)Anatomical RegionLateralityModality Other Narrative Authorizing ProviderResult TypeResult StatusExternal Provider PA-CRADIOLOGYFinal Result * EXTERNAL LAB (07/27/2025 1:54 PM EDT) Only the most recent of2 resultswithin the time period is included. Narrative Authorizing ProviderResult TypeResult StatusExternal Provider PA-CLABORATORY Final Result * CT-CT heart calcium score wo IMPORT (07/07/2025)Anatomical RegionLaterality ModalityOtherSpecimen (Source)Anatomical Location / LateralityCollection Method / VolumeCollection TimeReceived Time07/07/2025 Narrative 07/28/2025 4:25 AM EDT Images were obtained outside of [facility] Procedure Note Provider, [facility] - 07/28/2025 Images were obtained outside of [facility] Authorizing ProviderResult TypeResult StatusCcf ProviderRADIOLOGYFinal Result from Last 3 Months Insurance * Guarantor: Liseth SchulerZoya TypeRelation to PatientDate of BirthPhone Billing AddressSelf [id number] [address] [place] [id number] Care Teams Team MemberRelationshipSpecialtyStart DateEnd Cassie Tejada MD [address] [place] [phone] PCP - GeneralFamily Medicine01/08/12 Astrid Person PA-C [address] [place] [address] Neurology07/27/25
--- OUTSIDE RECORDS SUMMARY | 2025-09-13 11:01 | XMS_ITS | Clinical Summary ---
Author Organization [facility] Address [address] [place] [address] Care Team Providers Care Shipping Clerk/Admin Name Role Phone Unavailable Primary Care Provider Unavailabl e Social History Tobacco UseTypesPacks/DayYears UsedDateSmoking Tobacco: Never AssessedUT Safety & EnvironmentAnswerDate RecordedFear of Current or Ex-PartnerNot on file 12/26/2023Emotionally AbusedNot on file12/26/2023hysically AbusedNot on file 12/26/2023Sexually AbusedNot on file12/26/2023hysically or Sexually AbusedNot on file12/26/2023CommentsUnknownSex and Gender InformationValueDate RecordedSex Assigned at BirthNot on fileLegal DoeVquaip87/30/2022 12:40 AM EDT Gender IdentityNot on fileSexual OrientationNot on file Plan of Treatment Not on file
[2025-09-13 11:05] VITALS: BP 111/62; PULSE 62; TEMP 36.8; O2SAT 98
[2025-09-13 11:21] VITALS: BP 121/58; BP 124/58; PULSE 63; PULSE 64; O2SAT 100
[2025-09-13] MEDS: LIDOCAINE HCL 2% 400 MG/20 ML MDV 3 ML INJ (11:23)
[2025-09-13] MEDS: IOHEXOL 240 MG/ML - 10 ML VIAL INJ (11:23)
[2025-09-13] MEDS: BUPIVACAINE HCL 0.25% PF 25 MG/10 ML VIAL INJ (11:23)
[2025-09-13] MEDS: 0.9 % SODIUM CHLORIDE 10 ML SYRINGE - SALINE FLUSH INJ (11:23)
[2025-09-13] MEDS: METHYLPREDNISOLONE ACETATE 80 MG/ML VIAL INJ (11:24)
--- NOTE | 2025-09-13 11:25 | W.PM.PROCNOT ---
Date of procedure: 09/13/25 Pre-op diagnosis: Pain due to lumbar stenosis with neurogenic claudication Post-op diagnosis: same as pre-op Procedure: Procedure: Bilateral L5-S1 transforaminal epidural steroid injection Medications: Bupivacaine 0.25% 2cc, lidocaine 2% 1cc, depomedrol 80mg The patient was seen and examined in the preoperative holding area.? Informed consent was obtained and placed on the chart.? Patient was brought to the medical procedure unit and placed in the prone position where a timeout was completed verifying the correct patient, procedure site, position, and planned special equipment using sterile aseptic technique.? Under direct fluoroscopic visualization a 25-gauge Quincke tipped spinal needle was advanced at level left L5-S1 to the designated neural foramen where contrast dye was injected to show adequate spread.? There was no evidence of vascular or adverse uptake.? Epidural spread was appreciated.? The above-mentioned injectate was then placed in a 1.5 mL aliquot preceded by negative aspiration.? The needle was removed. The same procedure, at the same level, was completed on the opposite side. ? Patient was taken to the postprocedural recovery area and monitored for an appropriate length of time before found suitable for discharge in the accompaniment of a responsible adult. Anesthesia: Local Surgeon: Vishnu Aly Pathology: none sent Condition: stable Disposition: no change
== END 2025-09-13 12:25 | disposition home or self-care (01) ==
PROVIDERS: PCP Family Medicine; Visit Provider Anesthesiology
DX: M48.062 Spinal stenosis, lumbar region with neurogenic claudication (principal); M54.50 Low back pain, unspecified
CPT/HCPCS: 64483; J0665; J1010; Q9966

== ENCOUNTER 2025-10-06 12:57 | Outpatient (OUT) | payer MEDICARE, OTHER, SELFPAY ==
--- OUTSIDE RECORDS SUMMARY | 2025-09-23 08:34 | XMS_ITS | Continuity of Care Document ---
Author Organization [facility] Address [address] [place] [address] Phone Care Team Providers Care [employer] Name Role Phone Cassie Tejada MD Primary Care Provider Astrid eMrrill APRN Attending Provider Terry Hardwick MD Attending Provider Cassie Tejada MD Attending Provider [phone] Maryam Christianson MD Attending Provider [phone] Nick Posada MD Attending Provider Terry Hardwick MD Referring Provider [phone] Elissa Bowman MD Attending Provider Care Teams Patient Care Team Team Status: Active Member Role/Relationship Status Dates Cassie Tejada MD Primary Care Provider Active Visit Care Team Team Status: Inactive Member Role/Relationship Status Dates Cassie Tejada MD Primary Care Provider Active Start: June 29, 2025 End: June 29Miguel Hayes ProviderActiveStart: June 29, 2025 End: June 29, 2025 Visit Care Team Team Status: Inactive Member Role/Relationship Status Dates Cassie Tejada MD Primary Care Provider Active Start: July 07, 2025 End: July 07, 2025Barrett Arroyo ProviderActiveStart: July 07, 2025 End: July 07, [...] Start: July 14, 2025 End: July 14, 2025ImaBarrett Johnson ProviderActiveStart: July 14, 2025 End: July 14, 2025 Visit Care Team Team Status: Active Member Role/Relationship Status Dates Cassie Tejada MD Primary Care Provider Active Start: August 10, 2025 NickMaria D Johnsonending ProviderActiveStart: August 10, 2025 Visit Care Team Team Status: Active Member Role/Relationship Status Dates Cassie Tejada MD Primary Care Provider Active Start: September 02, 2025 CESIA Arroyoeferring ProviderActiveStart: September 02, 2025 Terry Hardwick MDOther ProviderActiveStart: September 02, 2025 Maria D Vickersending ProviderActiveStart: September 02, 2025 Patient Care Team Team Status: Inactive Member Role/Relationship Status Dates Cassie Tejada MD Primary Care Provider Active Start: September 23, 2025 End: September 23, 2025StBarrett Liu ProviderActiveStart: September 23, 2025 End: September 23, 2025 Chief Complaint and Reason for Visit Chief Complaint Admit Date Follow up after MRI *VIKRAM SB TO ND June 29, 2025 12:55pm R00.1 R53.873 R07.9 July 07, 2025 3:06pm Wellness July 12, 2025 1:27pm Refer: constipation/get established. Sep tem2024 11:31am I25.10 R07.9 R94.31 R00.1 R00.1 R07.9 R5 3.83 September 02, 2025 9:28am 8 week f/u September 23, 2025 1:00pm Reason for Visit Admit Date Abnormal MRI, lumbar spine June 29, 2025 [...] 1:27pm Change in bowel habits July 14 11:31am Diarrhea July 14, 2025 11:31am Reason for Referral Type Reason(s) Provider Provider Contact Information P best Address Start Date Altered bowel habits Diarrhea R19.4 - Change in bowel habit,R19.7 - Diarrhea, ysvfghrdzqpK20.4 - Change in bowel habit,R19.7 - Diarrhea, unspecifiedNorth[facility]24 Health Concerns Concerns Start Date Ongoing cardiac risk reducti on via lifestyle means: Regular movement/exercise, heart healthy low-sodium diet. Allergies, Adverse Reactions, Alerts Allergen Type Severity Reaction Last Updated Verified Status Comments ibandronate sodium Allergy Unknown Hives Novemb er 2024 1:03pm Yes Active primidoneAllergyUnknownHivesFormerly [facility]20[facility] 1:03pmYesActiveOnset Date: 05/14/2016, Onset Date: 02/27/2016gabapentinAllergyUnknownDizzinessFormerly [facility]2024 1:03pmYesActivetrouble focusing, vision changespregabalinAllergy UnknownDizzvencor hospitalS[facility] 2024 1:03pmYesActive Social History Smoking Status Status Start Date End Date Date of Observa tion Ex-smoker (finding) August 03, 2025 12:22pm Observation Status Observation Response Date of Response Legal Sex [facility] (finding) [facility] Family History Relationship Condition Age at Onset Recorded Date/T juanito brother Unknown fatherFamily history of lung cancerUnknownDeceasedUnknownMalignant neoplasm UnknownmotherDeceasedUnknownDementiaUnknownCerebral aneurysmUnknown Problems Active Problems Problem Diagnosis/Recorded Date Onset Date Status C omments Change in bowel habits July 14, 2025 10:44am Unknow n Active Agatston coronary artery calcium score between 100 and 199September 23, 2025 1:28pmUnknownActiveAbnormal MRI, lumbar spineAugust 2024 2:16pmUnknown ActiveUTI (urinary tract infection)September 18, 2024 6:14amUnknownActive Medicare annual wellness visit, subsequentSeptember 2024 10:51amUnknown ActiveScreening for colon cancerJanuary 2024 2:36pmUnknownActiveBenign essential tremorAugust 2023 2:55pmUnknownActivePeripheral neuralgiaAugust 2023 1:20pmUnknownActiveScreening mammogram for breast cancerNovember 2023 2:19pmUnknownActiveLow back painAugust 2024 1:20pmUnknownActive FatigueAugust 2024 1:22pmUnknownActiveInadequate oral nutritional intake May 17, 2025 11:17amUnknownActiveCAD (coronary artery disease)May 17, 2025 11:55amUnknownActiveBradycardiaAugust 2024 1:22pmUnknownActiveDiarrheaJuly 2024 7:57amUnknownActiveDiarrheaSeptember 2024 10:40amUnknownActive History of colostomy reversalJuly 2024 11:57amUnknownActiveCardiac murmur September 23, 2025 1:29pmUnknownActiveLeukocytosisJuly 2024 12:45am UnknownActiveAtypical chest painNovember 2024 1:29pmUnknownActiveLow serum vitamin A50Ssce 2024 11:19amUnknownActiveVertigoAugust 2024 1:19pm UnknownActivePolyneuropathyAugust 2024 1:19pmUnknownActiveAortic valve sclerosisNovember 2024 1:29pmUnknownActiveAbnormal EKGAugust 2024 1:22pmUnknownActivePartial small bowel obstructionJuly 2024 11:57amUnknown ActiveChest painAugust 2024 1:22pmUnknownActiveConstipationJuly 2024 11:51amUnknownActiveCardiac murmur, previously undiagnosedAugust 2024 1:22pmUnknownActiveInactive/Resolved Problems Problem Diagnosis/Recorded Date Onset Date Status C omments UTI (urinary tract infection) May 16, 2025 10:17pm Unkn own Resolved Mass of axillary tail of left breastJanuary 2018 11:09amUnknownResolved Problem List clean-up per request of Phys. EHR CmteIntractable nausea and vomitingJuly 2024 10:17pmUnknownResolved Medications Medication Status Dose Units Route Directions Qty Days Refills S tart Date Stop Date End Date Reason(s) Instructions Adherence Sod Picosulf-Mag Ox-Citric Ac (Clenpiq) 10 mg-3.5 gram- 12 gram/175 mL solution Discontinued 175 ML PO Daily 1 1 0 Deniz quiroz 2024 12:00am December 17, 2024 11:27amplease follow instructions provided by Dr. Dietz's office.Ondansetron 4 mg tablet,mxuwrkwdjfjhtnVmfttkmytxbd2IEKTA3M040Vgtg 2024 11:00pmJuly 2024 5:14pmPropranolol 80 mg casqdpJgdaojhxfdlt54VZCW Twice ccxki052Rxdkgg 2024 11:00pmAugust 2024 12:40pmTopiramate 100 mg zgntlzJkllgy475QIXSLqmab vzlbe35954Diybubo 2024 9:17amComplies with drug therapyFluticasone Propionate 50 mcg/actuation spray,tnrtmiitycHbqorv5XVLUI YPNBQIKDYBIfhpu507Akzexut 2024 10:12amadminister into each nostrilComplies with drug therapyPropranolol 80 mg pnljhyRccsnfhlwvdm42MBSCQasgm dailyJuly 2024 11:00pmJuly 2024 11:42amTopiramate 100 mg oefxkpTczyxsnefsnp130BVMW DailyJuly 2024 11:00pmAugust 2024 1:26pmLoperamide 2 mg Capsule Cbaqms1CDFJN9Z as needed for Nsqpfmxd2110Fzur 2024 11:00pmComplies with drug therapyTopiramate 100 mg wezhqpSpbaezhwcsec622XSQABuabw dailyAugust 2024 1:26pmOctober 2024 9:17amVitamin B Complex rlfxhgqZdaray2YMKLQFcars Mar 2024 11:00pmComplies with drug therapyAspirin (Adult Aspirin Regimen) 81 mg tablet,delayed release (DR/EC)Okgftg85PKAJEasybSbndbkeag 2024 11:00pmComplies with drug therapyPropanolDiscontinuedJanuary 2018 12:00amAugust 2023 9:16amToprimateDiscontinuedJanuary 2018 12:00am September 10, 2024 8:23amMeclizine 25 mg sqntngTwsjtjadgzoo76AOHKVkoftBahshbpw 2024 12:00amJuly 2024 3:35pmPregabalin 75 mg pseqlkwKpotzmdartvy21BM POTwice dailyFebruary 2024 12:00amJuly 2024 12:32pmMultivitamin (One Daily Multivitamin) ehkzsmWzjvqd3FTJZPKialgQdrycg 2024 11:00pmComplies with drug therapyPropranolol 80 mg riqmxmEwyokv89HLURFbjbb dailyAugust 2024 12:40pmComplies with drug therapyMeloxicam 7.5 mg tabletActive7.5MGPODaily as neededNovember 2024 12:00amComplies with drug therapyMagnesium Aspart,Citrate,Oxide 400 mg magnesium capsuleDiscontinuedMGPOAugust 2023 11:00pmAugust 2023 1:10pmGabapentin 300 mg sonkpmaSpykzgfwpoks958UEXMDwmpr at bedtimeAugust 2023 11:00pmAugust 2023 1:20pmPregabalin (Lyrica) 25 mg bulytkiYzrxfcrwzqkm67RTFIEaikn at ybxajgj81147Jhqfie 2023 11:00pm September 10, 2024 1:53pmPeripheral neuralgia Neuralgia and neuritis, unspecifiedPropranolol 20 mg poknkvNwldlleepzkx23CAOI Qdinr186Rryxok 2023 11:00pmJuly 2024 5:13pmTopiramate (Topamax) 50 mg qebalkTxzhwisdcafe53RJIHAoprv dailyNov2023 12:00amJuly 2024 5:13pmFreeTextSi tablet Orally Twice a day; Note: Source Status: Not- Taking\PRN2 QAM and 2 QHS; Provider: Terrell Matthews ( )Potassium Chloride 10 mEq tablet,ER particles/uofmmsxhUsjddowsqnzc4SLOBVGxgnq daily September 10, 2024 12:00amNovember 2023 1:52pmFreeTextSi tablet with food Orally Twice a day; Note: Source Status: Start; Refills: 0; Qty: 30Tablet; Provider: Terrell Matthwes ECalcium Carbonate-Vitamin D3 600 mg-5 mcg (200 unit) hzfgbqKayidt7TUBQYXcdpvZvigevcn 7th, 2024 12:00amMedication Name: Calcium + D; Note: Source Status: Not-Taking\PRN; Provider: Terrell Matthews ( ) Complies with drug therapyBiotin 5 mg nuzlucCfbevg3TSQWKugeeBbzgmajm 7th, 2024 12:00amComplies with drug therapyCyanocobalamin (Vitamin B-12) 1,000 mcg capsule Pynqjl3548NWABQZlcizVvxjlyxx 7th, 2024 12:00amComplies with drug therapy Sulfamethoxazole-Trimethoprim 800-160 mg sxwjgmDjzeaqywzniq9BIQTDGosww September 10, 2024 12:00amFebruary 2024 11:28amFluticasone Propionate 50 mcg/actuation spray,iewxmmwtypPkxjuwzsuxlu9DXNRMSTHGMMUELBHnptm031Cehoxiqry 7th, 2025 11:00pmOctober 2024 10:13amadminister into each nostrilvitamin b complexDiscontinuedPOSept2024 11:00pmSeptember 2024 11:22am Immunizations Immunization Event Date Not Given Reason Dose Number Internal Audit Director Lot Number Reason(s) Given Vaccine Information Statement (VIS) Detail Administration Location COVID-19 mRNA, Comirnaty ([employer] September 03, 2021 COVID-19 mRNA, Comirnaty ([employer]April 06, 2022Fluzone TIV High-Dose 65YR+ July 12, 2025U8800CAFPG [facility], unspecified formulationSeptember 2016influenza, unspecified formulationSeptneumococcal Conjugate Vaccine, 13 valentSeptember 2016Pneumococcal Conjugate Vaccine, 20 valentSeptember 2021 Procedures Procedure Date Performed Status CT heart calcium score wo July 07, 2025 2: 16pm completed Relevant Diagnostic Tests and/or Laboratory Data Laboratory Results Test Collection Date/Time Result Date/Time Result Interpretation Reference Range Result Comment Performing Site Albumin (Send Out) August 10, 2025 2:30pm August 10, 2:30pm 4.09 g/dL 3.43-5.41Serum ImmunofixationOct2024 2:30pmOct2024 2:30pmNo M protein is identified.No M protein is identified.Free Anton Ruiz/Lambda Light Chain RatioOct2024 2:30pmOctober 2024 2:30pm1.540.26-1.65CA 15-3 AntigenOct2024 2:30pmOctober 2024 1:02pm17.0 U/mL<26.0The CA 15-3 test methodology used is the Electrochemiluminescence Immunoassay by [employer].Results obtained with different methods or kits cannot be used interchangeably.Serum Total ProteinOct2024 2:30pmOct2024 1:02pm7.0 g/dL6.3-8.0FolateOct2024 2:30pmOct2024 2:30pm>20.0 ng/mL>4.7A result of > 20 ng/mL is not necessarily indicative of a pathologic or treatable condition: it reflects a limitation of the test methodology.Assay reference range: 4.8 to 24.2 ng/mL. Suitable fordetection of folate deficiency.Reference:Folate III (Folate III) [package insert V 1.0 Kyr[place]z]. [facility] [employer], [place], [place]: September 2015.Vitamin B12 LevelOct2024 2:30pmOct2024 1:02pm>2000 pg/mLAbove high jjowxq299-6126Dtml LevelAugust 10, 2025 2:30pmOctober 2024 12:42pm72 ug/rO47-737Owxtvoglzzy August 10, 2025 2:30pmOctober 2024 12:25bj220 mg/jB22-803Kdkptaz Stimulating Hormone 3rd GenAugust 10, 2025 2:30pmOctober 2024 2:30pm3.940 mIU/L0.270-4.200FerritinAugust 10, 2025 2:30pmOctober 2024 12:44da925.0 ng/mLAbove high nydgud71.7-205.1Alanine Aminotransferase (ALT/SGPT)August 10, 2025 2:30pmOctober 2024 2:30pm16 U/L7-38Basophils # (Auto)August 10, 2025 2:30pmOctober 2024 2:30pm0.03 k/uL<0.06Bngjz-2-StxfsighkNerzewm 7th, 2025 2:30pmOctober 2024 2:30pm0.28 g/dL0.18-0.43Leuk/Lymph Sign Pathologist (Misc)August 10, 2025 2:30pmOctober 2024 2:30pmReviewed by Shelley Eugene MDFrconnie Lambda Light Chains, QuantAugust 10, 2025 2:30pmOctober 2024 2:30pm23.9 mg/L5.7-26.3Rarely, increased serum free light chains levels [...] used interchangeably.Total Iron Binding CapacityAugust 10, 2025 2:30pmOctober 2024 12:96ff728 ug/wS213-290SmwqrbmSgqykex 7th, 2025 2:30pmOct2024 2:30pm4.2 g/dL3.9-4.9Basophils (%) (Auto)August 10, 2025 2:30pmOctober 2024 2:30pm0.5 %Hpdhc-7-CiyquqitbLkxcsbw 7th, 2025 2:30pmOctober 2024 2:30pm0.65 g/dL0.42-0.98Free Anton Ruiz Light Chains, QuantOct2024 2:30pm August 10, 2025 2:30pm36.8 mg/LAbove high normal3.3-19.4Rarely, increased serum free light chains levels may not be detected or accurately quantified due to prozone phenomenon or in high viscosity samples using this immunoturbidimetric assay. Correlation with other laboratory results and clinical findings is recommended. The Anton Ruiz Free Light Chain was performed using the Binding Site Optilite immunoturbidimetric method. Result obtained with different assay methods or kits cannot be used interchangeably.Iron Saturation August 10, 2025 2:30pmOct2024 12:42pm30.0 %15.0-57.0Aspartate Amino Transf (AST/SGOT)August 10, 2025 2:30pmOctober 2024 2:30pm22 U/L13-35 Eosinophils # (Auto)August 10, 2025 2:30pmOctober 2024 2:30pm0.30 k/uL <0.46Beta GlobulinsOct2024 2:30pmOctober 2024 2:30pm1.09 g/dL 0.61-1.17Total BilirubinOct2024 2:30pmOctober 2024 2:30pm0.2 mg/dL0.2-1.3Eosinophils (%) (Auto)August 10, 2025 2:30pmOctober 2024 2:30pm4.9 %Gamma GlobulinsOct2024 2:30pmOctober 2024 2:30pm0.90 g/dL0.53-1.51Carbon Dioxide LevelOct2024 2:30pmOctober 2024 2:30pm22 mmol/D89-81GhovxdwqesKrcxiwv 7th, 2025 2:30pmOctober 2024 2:30pm 10.9 g/dLBelow low pohnlf39.5-15.5Protein Electrophoresis NoteOct2024 2:30pmOct2024 2:30pmNo definitive M protein is identified on protein electrophoresis.No definitive M protein is identified on protein electrophoresis.Chloride LevelOct2024 2:30pmOct2024 2:30pm 110 mmol/LAbove high wugbpi63-166Xpmjqvnwocx # (Auto)August 10, 2025 2:30pm August 10, 2025 2:30pm2.84 k/uL1.00-4.00Protein Electrophoresis M-SpikeAugust 10, 2025 2:30pmAugust 10, 2025 2:30pm0.00 g/dL<=0.00CreatinineOct2024 2:30pmOct2024 2:30pm1.21 mg/dLAbove high normal0.58-0.96 Lymphocytes (%) (Auto)August 10, 2025 2:30pmOct2024 2:30pm46.5 % Miscellaneous Test 6August 10, 2025 2:30pmOct2024 2:30pmSee comment Not Applicable.Random GlucoseAugust 10, 2025 2:30pmAugust 10, 2025 2:30pm89 mg/nB12-30Hux [place] Diabetes Association (ADA) provides guidance for cutoff [...] diabetes.Reference: [employer] in Diabetes 2016, [place] Diabetes Association. Diabetes Care. 2016.39(Suppl 1).Monocytes # (Auto)August 10, 2025 2:30pm August 10, 2025 2:30pm0.64 k/uL<0.87Miscellaneous Test CommentOct2024 2:30pmOct2024 2:30pmReviewed by Shelley Eugene, LEONLEotassium LevelOct2024 2:30pmOctober 2024 2:30pm3.6 mmol/LBelow low normal 3.7-5.1Neutrophils # (Auto)August 10, 2025 2:30pmOctober 2024 2:30pm2.29 k/uL1.45-7.50Neutrophils (%) (Auto)August 10, 2025 2:30pmOctober 2024 2:30pm37.4 %Sodium LevelOct2024 2:30pmOctober 2024 2:64up700 mmol/LAbove high -585Mhzypzvgm Red Blood Cells #August 10, 2025 2:30pmOctober 2024 2:30pm<0.01 k/uL<0.01Blood Urea NitrogenOct2024 2:30pmOctober 2024 2:30pm30 mg/dLAbove high normal7-21Platelet Count August 10, 2025 2:30pmOctober 2024 2:38cp754 k/gD490-741Jygrpwdj PhosphataseOct2024 2:30pmOctober 2024 2:30pm62 U/A51-368Xqnd Corpuscular HemoglobinOct2024 2:30pmOctober 2024 2:30pm32.9 pg 26.0-34.0Calcium LevelOct2024 2:30pmOctober 2024 2:30pm9.4 mg/dL 8.5-10.2Mean Corpuscular Hemoglobin ConcentOct2024 2:30pmOctober 2024 2:30pm32.6 g/dL30.5-36.0Anion GapOct2024 2:30pmOctober 2024 2:30pm13 mmol/L8-15Mean Corpuscular VolumeOct2024 2:30pmOctober 2024 2:36xo290.9 fLAbove high bitkxv86.0-100.0Estimated GFR (CKD-EPI)August 10, 2025 2:30pmOctober 2024 2:30pm47 mL/min/1.73m???Below low normal>=60 Estimated Glomerular Filtration Rate [...] eGFRmay not accurately reflect actual GFR.Red Blood CountOct2024 2:30pmOct2024 2:30pm3.31 m/uLBelow low normal3.90-5.20Hematocrit August 10, 2025 2:30pmOct2024 2:30pm33.4 %Below low syvpka97.0-46.0 Monocytes (%) (Auto)August 10, 2025 2:30pmOct2024 2:30pm10.5 % Corrected White Blood CountOct2024 2:30pmOct2024 2:30pm6.11 k/uL3.70-11.00Nucleated RBC Relative Count (auto)August 10, 2025 2:30pmOct2024 2:30pm0.0 /100{WBC}Red Cell Distribution WidthOct2024 2:30pm August 10, 2025 2:30pm14.4 %11.5-15.0Mean Platelet VolumeAugust 10, 2025 2:30pmOct2024 2:30pm10.8 fL9.0-12.7Differential CommentOct2024 2:30pmOct2024 2:30pmAutoImmature Granulocyte # (Auto)August 10, 2025 2:30pmOct2024 2:30pm<0.03 k/uL<0.10Immature Granulocyte % (Auto) August 10, 2025 2:30pmOct2024 2:30pm0.2 % Diagnostic Imaging Reports Author Vishal Alston [facility] HospitalAuthoredSeptember 2024 4:52pmReport Dictated Date/TimeDictated ByStatusRadiology ReportSeptember 2024 4:52pm Vishal Alston Jr [facility] [place] [address] [place] [address] CT Scan Report Signed Patient: Yary Schuler MR#: [id number] : 1950 Acct:[id number] Age/Sex: 74 / F ADM Date: 5 Loc: CT Room: Type: [facility] Attending Dr: Terry Hardwick MD Copies [...] Jr., D.O. 07/07/2025 4:54 PM Dictation Location: [place] [address] Transcribed By: [facility] 07/07/251653 Dictated By: Vishal Alston Jr, DO 07/07/251651 Signed By: <Electronically signed by Vishal Alston Jr, DO in [place]> 07/07/25 165 Vital Signs Vital Reading Result Reference Range Collection Date/Time Height 60 [in_i] June 29, 2025 1:57hyLvoiwy75.62 kgAugust 2024 1:21pmHeart Rate60 /min 60-100August 2024 1:21pmBP Aaezqbqu983 mm[Hg]100-140August 2024 1:21pmBP Ncaxstwwp48 mm[Hg]60-100August 2024 1:21pmBMI (Body Mass Index) 20.5 kg/d1Uqvesj 2024 1:21ppGtmdgq58 [in_i]July 12, 2025 12:56pm Svxkcg80.62 kgSeptember 2024 12:56pmHeart Rate58 /pbq86-692Npvnnyyem 2024 12:56pmBP Owkirlzq505 mm[Hg]100-140September 2024 12:56pmBP Diastolic 55 mm[Hg]60-100September 2024 12:56pmBMI (Body Mass Index)20.5 kg/m2 July 12, 2025 12:04mgFancim95 [in_i]July 14, 2025 10:31amWeight 47.62 kgSeptember 2024 10:31amHeart Rate58 /bdz11-359Scxejudkl 2024 10:31amBP Twqtwtir860 mm[Hg]100-140September 2024 10:31amBP Aycuwuyxu63 mm[Hg]60-100September 2024 10:31amBMI (Body Mass Index)20.5 kg/k3Gkzvdkgsw 2024 10:31amHeart Rate60 /duw61-882Kstoswn 2024 10:54amBP Systolic 149 mm[Hg]100-140October 2024 10:54amBP Bvumykvnk67 mm[Hg]60-100October 2024 10:19hpEvyhed94 [in_i]September 23, 2025 1:22pvFserpe63.62 kg September 23, 2025 1:08pmHeart Rate55 /dkd49-741Uvvekycf 20th, 2025 1:08pm Respiratory rate18 /pif79-35Mivlgjer 2024 1:08pmOxygen saturation by Pulse rqryvpim05 %95-100September 23, 2025 1:08pmBP Khegasoe603 mm[Hg]100-140 September 23, 2025 1:08pmBP Mpoijwopa98 mm[Hg]60-100September 23, 2025 1:08pm BMI (Body Mass Index)20.5 kg/q2UbdfhamsSeptember 23, 2025 1:08pm Advance Directives Advance Directive Response Recorded Date/ Time Advance Directives No September 12:15pm Insurance Providers Guarantor Yary Forresters Address [address] [id number] Info.Home Phone: Coverage Status Update:2025 Payer Group Member ID Coverage Type Subscriber Relationship to Subscriber Effective Date Expiration Date Adwoa [place] Milana Id: [id number] A Sparks Id: [id number] [address] [facility] [address] Home Phone: Email: Declined [id number] [id number] A Schuler Id: [id number] [address] [facility] [address] Home Phone: Email: Declined [phone] [facility] [id number] Kb Schuler Id: [id number] [address] [facility] [address] Home Phone: Email: Declined [id number] Encounters Encounter Location(s) Arrival/Admit Date Discharge/Departure Date Discharge/Departure Disposition Provider(s) Departed Physician/ Provider Office Visit -[facility] [place] June 29, 2025 12:55pm June 29, 2025 3:02pm Discharged to home care or self care (routine discharge) Romel Dodge APRN Departed Clinical -CT Scan [facility] July 07, 2025 3:06pm July 07, 2025 3:07pm Discharged to home care or self care (routine discharge) Romel Arroyo MD Departed Physician/ Provider Office Visit -[facility] July 12, 2025 1:27pm July 12, 2025 2:28pm Discharged to home care or self care (routine discharge) Cassie Tejada MD Departed Physician/ Provider Office Visit -[facility] Gastro July 14, 2025 11:31am July 14, 2025 12:03pm Discharged to home care or self care (routine discharge) Maryam Christianson MD Non-patient / Non-visit -[facility] O ctober 2024 3:30pm Nick Posada MDNon-patient / [facility] September 02, 2025 9:28amKALANI Vickerseparted Physician/Provider Office Visit-[facility] CardiologySeptember 23, 2025 1:00pmNov2024 1:32pmDischarged to home care or self care (routine discharge)Romel Arroyo MD Recent Diagnosis Onset Date Admit Date Abnormal MRI, lumbar spine Unknown Augus t [...] 14, 2025 11:31am Assessments Author Terry Hardwick [facility]2024 1:32pm1. Source of cardiac murmur is aortic sclerosis without valvular aortic stenosis as documented by transthoracic echocardiography 2. Low risk pharmacologic stress test with nuclear myocardial perfusion SPECT imaging. 3. Mildly elevated coronary calcium score. Total Agatston score 198. Implies presence of mild nonobstructive coronary plaque. 4. Zio patch monitoring for 14 days showing no evidence of significant cardiac arrhythmia Author Maryam Christianson [facility]2024 10:44tx95-zrzf-wgw female referred to the GI clinic for [...] test Plan of Treatment Author Astrid Merrill [facility] HospitalAuthoredSeptember 2024 10:36am 74 year old female patient with tremor [...] of fatigue. She is currently following with [facility]. She was started on risperdone [...] notes that she was initially seen in [place] and then transferred to [facility]. She is agreeable to pain mgt [...] send to pain management-first choice location is [place] second choice is [facility] Will sent to hematology for MRI [...] new issues or questions. Author Cassie Tejada [facility] HospitalAuthoredSeptember 2024 10:53am Personalized health advice was given to the [...] Tests Test Name Ordered Date Scheduled Date Comprehensive Metabolic Panel September 23 1:26pm Lipoprotein (a)September 23, 2025 1:26pmMM screening mammo BI w/CADSept2024 1:11pmPancreatic Elastase, StoolSeptember 2024 10:44am Future Visits Future appointment information is unavailable Future Procedures Procedure Name Ordered Date Scheduled Date Apolipoprotein B September 23, 2025 1:26pm B-Type Natriuretic PeptideNov2024 1:26pmHigh Sensitive CRPNov2024 1:26pmLipid PanelNov2024 1:26pmCalprotectin, Fecal July 14, 2025 10:44amClostridium DifficileSeptember 2024 10:44am CeliacSeptember 2024 10:44amC-Reactive ProteinSeptember 2024 10:44am Erythrocyte Sedimentation RateSeptember 2024 10:44amHIV 1/O/2 Antigen/AntibodySept2024 10:44am Future Medications Future medication information is unavailable Patient Instructions Instruction Admit Date Low back pain in adults June 29 12:55pm
--- OUTSIDE RECORDS SUMMARY | 2025-10-06 13:03 | XMS_ITS | Clinical Summary ---
Author Organization [facility] Healthcare Address [address] [place] [address] Care Team Providers Care Napper Runner Name Role Phone Cassie Tejada MD Primary Care Provider Allergies No known active allergies Medications MedicationSigDispense [...] of fatigue. She is currently following with [facility]. She was started on risperdone by Dr. [...] Last Filed Vital Signs Vital SignReadingTime TakenCommentsBlood Ifwhluhw945/7205 1:41 PM EDT Pulse--Temperature--Respiratory Rate--Oxygen Saturation--Inhaled Oxygen Concentration--Ifagdl68 kg (108 lb)03/16/2025 1:41 PM YCKMiyyfg519.4 cm (5') 03/16/2025 1:41 PM EDTBody Mass Index21.0903/16/2025 1:41 PM EDT Plan of Treatment [place] [address] Care Teams Team MemberRelationshipSpecialtyStart [place] [address] [place] [address] [phone] PCP - GeneralFamily Medicine03/16/25
--- OUTSIDE RECORDS SUMMARY | 2025-10-06 13:03 | XMS_ITS | Clinical Summary ---
Author Organization [facility] Address [address] [place] [address] Care Team Providers Care Sales Rep Name Role Phone Unavailable Primary Care Provider Unavailabl e Social History Tobacco UseTypesPacks/DayYears UsedDateSmoking Tobacco: Never AssessedUT Safety & EnvironmentAnswerDate RecordedFear of Current or Ex-PartnerNot on file 12/26/2023Emotionally AbusedNot on file12/26/2023hysically AbusedNot on file 12/26/2023Sexually AbusedNot on file12/26/2023hysically or Sexually AbusedNot on file12/26/2023CommentsUnknownSex and Gender InformationValueDate RecordedSex Assigned at BirthNot on fileLegal QptWaeqgl73/30/2022 12:40 AM EDT Gender IdentityNot on fileSexual OrientationNot on file Plan of Treatment Not on file
--- OUTSIDE RECORDS SUMMARY | 2025-10-06 13:03 | XMS_ITS | Clinical Summary ---
Author Organization [facility] Address [address] [place] [address] Phone Care Team Providers Care Software Test Technician Name Role Phone Unavailable Primary Care Provider Unavailabl e Social History Tobacco UseTypesPacks/DayYears UsedDateSmoking Tobacco: Never Assessed CommentsUnknownSex and Gender InformationValueDate RecordedSex Assigned at Not on fileLegal AwmUsmydf00/26/2022 12:07 AM ESTGender IdentityNot on file Sexual OrientationNot on file Plan of Treatment Not on file
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
== END 2025-10-06 12:58 | disposition home or self-care (01) ==
LOC: PM 13:00
PROVIDERS: PCP Family Medicine; Visit Provider Nurse Practitioner
DX: M51.34 Other intervertebral disc degeneration, thoracic region (principal); M47.814 Spondylosis without myelopathy or radiculopathy, thoracic region; M48.062 Spinal stenosis, lumbar region with neurogenic claudication; R06.00 Dyspnea, unspecified; R07.9 Chest pain, unspecified; R00.2 Palpitations; I25.10 Atherosclerotic heart disease of native coronary artery without angina pectoris
CPT/HCPCS: 36415; 80053; 80061; 83695; 83880; 86140; G0463

== ENCOUNTER 2025-10-06 13:50 | Outpatient (OUT) | payer MEDICARE, OTHER, SELFPAY ==
--- OUTSIDE RECORDS SUMMARY | 2025-10-06 13:57 | XMS_ITS | Clinical Summary ---
Author Organization [facility] Address [address] [place] [address] Phone Care Team Providers Care Thermodynamics Teacher Name Role Phone Unavailable Primary Care Provider Unavailabl e Social History Tobacco UseTypesPacks/DayYears UsedDateSmoking Tobacco: Never Assessed CommentsUnknownSex and Gender InformationValueDate RecordedSex Assigned at Not on fileLegal HdmAahtob34/26/2022 12:07 AM ESTGender IdentityNot on file Sexual OrientationNot on file Plan of Treatment Not on file
--- OUTSIDE RECORDS SUMMARY | 2025-10-06 13:57 | XMS_ITS | Clinical Summary ---
Author Organization [facility] Healthcare Address [address] [place] [address] Care Team Providers Care Rn Maternity Name Role Phone Cassie Tejada MD Primary Care Provider [phone] Allergies No known active allergies Medications MedicationSigDispense [...] of fatigue. She is currently following with [facility]. She was started on risperdone by Dr. [...] Last Filed Vital Signs Vital SignReadingTime TakenCommentsBlood Apqupjgx841/7205 1:41 PM EDT Pulse--Temperature--Respiratory Rate--Oxygen Saturation--Inhaled Oxygen Concentration--Xmzbmz33 kg (108 lb)03/16/2025 1:41 PM WVVTzujnr414.4 cm (5') 03/16/2025 1:41 PM EDTBody Mass Index21.0903/16/2025 1:41 PM EDT Plan of Treatment [place] [address] Care Teams Team MemberRelationshipSpecialtyStart [place] [address] [place] [address] [phone] PCP - GeneralFamily Medicine03/16/25
--- OUTSIDE RECORDS SUMMARY | 2025-10-06 13:57 | XMS_ITS | Clinical Summary ---
Author Organization [facility] Address [address] [place] [address] Care Team Providers Care Construction Field Engineer Name Role Phone Unavailable Primary Care Provider Unavailabl e Social History Tobacco UseTypesPacks/DayYears UsedDateSmoking Tobacco: Never AssessedUT Safety & EnvironmentAnswerDate RecordedFear of Current or Ex-PartnerNot on file 12/26/2023Emotionally AbusedNot on file12/26/2023hysically AbusedNot on file 12/26/2023Sexually AbusedNot on file12/26/2023hysically or Sexually AbusedNot on file12/26/2023CommentsUnknownSex and Gender InformationValueDate RecordedSex Assigned at BirthNot on fileLegal VbeMrnlkr37/30/2022 12:40 AM EDT Gender IdentityNot on fileSexual OrientationNot on file Plan of Treatment Not on file
--- OUTSIDE RECORDS SUMMARY | 2025-10-06 13:57 | XMS_ITS | Clinical Summary ---
Author Organization [facility] Address [address] [place] [address] Care Team Providers Care Stewarding Supervisor Name Role Phone Cassie Tejada MD Primary Care Provider [phone] Allergies No known active allergies Medications MedicationSigDispense [...] 4 times daily.ctive Active Problems ProblemNoted DateDiagnosed JdtpKmrtwzwjuns81/28/2023ritical polytrauma 03/14/2023cute kidney tfoxtb2502/15/2023cute on chronic tfupyt4702/15/2023Elevated CK02/15/20231687Lawwsspsxghso41/14/2023Serum ammonia trifphopr95/14/2023 Cqgexxwpatajdpwsjp70/14/2023Traumatic abdominal cftdfc6402/15/2023Splenic laceration, grade II02/15/2023losed fracture of multiple ribs of both sides 02/15/2023Flail chest02/15/2023Traumatic uddhphixajjs96/14/2023Right Lumbar (L1, L2) transverse process /14/2023Lactic vjvqmiqj04/14/2023Metabolic bpahswjp32/14/4087Ejbuuwwgdbnj42/14/4370Hchnwxebljzqhfcg81/14/2023oagulopathy 02/15/2023ontusion of both lungs02/15/2023Tobacco abuse02/15/2023Shock 02/15/2023cute respiratory failure with xdjfxxq4902/15/20239018Noxcpbbqwmkx99/14/2023 Gjsnvl5902/11/2023 Resolved Problems ProblemNoted DateDiagnosed DateResolved DateAnemia, blood loss02/15/2023 02/15/2023 Immunizations ImmunizationAdministration DatesNext DueHIB Vaccine, PRP-OMP02/25/2023 Meningococcal B,RECOMB ADJ (MenB-4C) JXMQNVL7902/25/2023Meningococcal Vaccine (Oligosaccharide) ACW&Y-135 (MENVEO)02/25/2023neumococcal Conjugate 20-Valent Eyuzxws0502/25/2023 Social History Tobacco UseTypesPacks/DayYears UsedDateSmoking Tobacco: ChhpuoDiqiqxghwo3Eyih: 2008Smokeless Tobacco: Never Tobacco Cessation:Counseling Given: Not [...] Date RecordedSex Assigned at BirthNot on fileLegal SueOemuaz39/09/2023 7:17 PM EDTGender IdentityNot on fileSexual OrientationNot on file Last Filed Vital Signs Vital SignReadingTime TakenCommentsBlood Lwksjhis88/4606 8:11 AM EDT Ysddm425405/03/2023 8:11 AM IIPEjycbciwxaz45 ??C (98.6 ??F)05/03/2023 8:11 AM EDT Respiratory Seac961905/03/2023 8:11 AM EDTOxygen Zyecvndhdq87%05/03/2023 8:11 AM EDTInhaled Oxygen Concentration--Mjkyry03.7 kg (111 lb 11.2 oz)04/29/2023 1:33 AM PFCFidhkn548.8 cm (4' 11.37 )04/30/2023 3:02 PM EDTper chartBody Mass Index 22.2805 11:46 PM EDT Plan of Treatment Health MaintenanceDue DateLast DoneCommentsDEXA SCAN MSTKHPUOWX1949 HEPATITIS C VIRUS PFCUBXLTG59/20/3512PKGPSHJ1949TDAP (ADULT)1968 CERVICAL CANCER SCREENING LRKPIEBZWO27/20/1970MAMMOGRAM SCREENING DISCUSSION 1989COLORECTAL CANCER SCREENING VJRATMKXRS86/20/1994ZOSTER (SHINGLES) VACCINE (1 of 2)1999RSV VACCINE (1 - 1-dose 75+ series)4COVID-19 VACCINE ( season)506/01/2022, 09/03/2021, 01/06/2021, Additional history existsINFLUENZA VACCINE (#1)509/06/2022, 07/12/2021, 11/16/2019, Additional history existsPNEUMOCOCCAL VACCINE SERIESCompleted 02/25/2023, 07/22/2022, 08/04/2020, Additional history existsHEP B VACCINEAged OutNo longer eligible based on patient's age to complete this topic Additional Health Concerns InfectionOnset DateLast BcezojucqTJP39/22//01/2023 Insurance on file on file Advance Directives For more information, please contact: [phone] (7:30 AM - 6PM [facility], Saturday-Saturday) TypeDate RecordedPatient RepresentativeExplanationHealthCare Power of Oyster Sorter 04/17/2023 * Full Code (Latest Code Status [...]
--- OUTSIDE RECORDS SUMMARY | 2025-10-06 13:57 | XMS_ITS | Clinical Summary ---
Author Organization [facility] Address [address] [place] [address] Care Team Providers Care Veneer Sorter Name Role Phone Cassie Tejada MD Primary Care Provider [phone] Astrid Person PA-C Unavailable [phone] Allergies Active AllergyReactionsCriticalityNoted ZipxDqrxqpvuFxqnkxfpxmfDwcjcgi36/25/2025 EotrkrprzWdqnlfz72/25/2025 Medications MedicationSigDispense QuantityRefillsLast FilledStart DateEnd DateStatus propranolol [...] by mouth.Active Active Problems ProblemNoted DateDiagnosed DateHot tpvttlx4507/09/2014reast otvohk9905/29/2013 Encounters DateTypeDepartmentCare TcbaMtirfylptui55/25/2025 4:00 PM EDTVisit (SP) Office Hematology/Oncology [address] [place] [address] [place] [address] Nick Posada MD Anemia, unspecified type (Primary Dx); Other abnormal tumor fizynag6507/29/20253091Charuk05/23/2025H&P External-NonCCF Provider, SANTOSH Nam 07/27/2025bstract Hematology/Oncology [address] [place] [address] Aura Brooks MA from Last 3 Months Family History Medical HistoryRelationCommentsDiabetesMaternal GrandmotherAneurysmMother DementiaMotherStrokeMotherh/o tremor following anuersym rupture[other]Mother RelationStatusCommentsMaternal GrandmotherMotherDeceased Social History Tobacco UseTypesPacks/DayYears UsedDateSmoking Tobacco: NeverSmokeless Tobacco: NeverAlcohol UseStandard Drinks/WeekCommentsYes0 (1 standard drink = 0.6 oz pure alcohol)sociallyArea Deprivation IndexAnswerDate RecordedNational Score (1- 100), lower number is lower grav354508/10/2025State Score (1-10), lower number is lower riyr561Data from: https://www.neighborhoodatlas.[facility].edu/. Last address used for gijrs[address]ir[address] [place], [place] [address]/10/2025CommentsNoSex and Gender InformationValueDate RecordedSex Assigned at BirthNot on fileLegal SexFemale 10/05/2012 10:12 AM ESTGender IdentityNot on fileSexual OrientationNot on file Last Filed Vital Signs Vital SignReadingTime TakenCommentsBlood Gbulozvb280/68007/29/2025 3:55 PM EDT Khrwv389307/29/2025 3:55 PM CSBNobpkzbobuw05.3 ??C (97.4 ??F)07/29/2025 3:55 PM EDTRespiratory Uszt296907/29/2025 3:55 PM EDTOxygen Aohkulfmxt69%07/29/2025 3:55 PM EDTInhaled Oxygen Concentration--Zmgcae90.4 kg (106 lb 11.2 oz)07/29/2025 3:55 PM VOMJryjfb998.9 cm (5' 1 )02/29/2016 4:12 PM EDTBody Mass Index20.16 02/29/2016 4:12 PM EDT Plan of Treatment DateTypeDepartmentCare Team (Latest Contact Info)Cjbpurgqfyy06/17/2025 2:40 PM ESTVisit (SP) Office Hematology/Oncology [address] [place] [address] [place] [address] Nick Posada MD [address] [place] [address] [place] [address] follow up in 3 monthsHealth MaintenanceDue DateLast DoneCommentsAnxiety Jixuysawo50/20/1967Depression Osedpkvwe70/20/1967Hepatitis C Jikcimhiw86/20/1967 Bone Density Ricwuiiga30/20/2014dvance Directive Cgokvoylou14/01/2025ovid-19 Vaccine ( season)5007/05/2024, 04/06/2022, 09/03/2021, Additional history existsDiabetes Hkigzlgvk57/05/2025, 03/26/2024, 12/05/2023, Additional history existsDTaP,Tdap,Td Vaccine (2 - Td or Tdap) Pneumococcal Vaccine: 50+Gembnfmrb85/24/2023, 07/22/2022, 08/04/2020, Additional history existsRSV BsjigjgFfbrchnnv90/19/2024Shingrix IgvychfUyszyelpm21/03/2025, 07/23/2024Influenza CwpybtdVafaqdgnp88/08/2025, 07/05/2024, 07/12/2022, Additional history exists Procedures Procedure NamePriorityDate/TimeAssociated DiagnosisCommentsPROTEIN ELECTROPHORESIS SERUM (P)Euntyws1008/10/2025 3:30 PM EDT Anemia, unspecified type PROTEIN, TOTAL (FOR SEPG)Cjqghhg7508/10/2025 3:30 PM EDT Anemia, unspecified type TSH YRXPsfjdnk42/07/2025 3:30 PM EDT Anemia, unspecified type HAPTOGLOBIN RWGDjvhsoq26/07/2025 3:30 PM EDT Anemia, unspecified type CA 15-3 HDQDmqptzy13/07/2025 3:30 PM EDT Anemia, unspecified type Other abnormal tumor markers KAPPA/LOPEZ,FREE,HGVFiwagah86/07/2025 3:30 PM EDT Anemia, unspecified type IMMUNOFIXATION SCREEN, SLILZSvntqxi83/07/2025 3:30 PM EDT Anemia, unspecified type PROTEIN ELECTROPHORESIS SERUM W/QOVNYIDtpenyx21/07/2025 3:30 PM EDT Anemia, unspecified type FOLATE MTILELqpulzc61/07/2025 3:30 PM EDT Anemia, unspecified type VITAMIN B12 YTDRKDkxsigw94/07/2025 3:30 PM EDT Anemia, unspecified type IRON + EDGNJnbadfc96/07/2025 3:30 PM EDT Anemia, unspecified type FERRITIN PZZQmostwo43/07/2025 3:30 PM EDT Anemia, unspecified type COMPREHENSIVE METABOLIC VKFIRGgfzmfl20/07/2025 3:30 PM EDT Anemia, unspecified type CBC + IHVSPhvjrhu72/07/2025 3:30 PM EDT Anemia, unspecified type EXTERNAL RWWKZOZ0807/27/2025 1:54 PM EDT EXTERNAL EOECSEM2607/27/2025 1:54 PM EDT EXTERNAL ZXOVINK7407/27/2025 1:54 PM EDT EXTERNAL IJYOPOV2307/27/2025 1:54 PM EDT EXTERNAL LAB07/27/2025 1:54 PM EDT EXTERNAL LAB07/27/2025 1:[address] OUTSIDE CD DICOM QEZXTX3107/07/2025 from Last 3 Months Results * IMMUNOFIXATION SCREEN, SERUM (08/10/2025 3:30 PM EDT)ComponentValueRef Range Test MethodAnalysis TimePerformed AtPathologist SignatureMPA ResultNo M protein is identified.No M protein is identified.08/12/2025 8:16 AM EDT [facility] LABStaff Review (MPA)Reviewed by Shelley Eugene MD08/12/2025 8:16 AM EDTCFULT[facility] LABSpecimen (Source) Anatomical Location / LateralityCollection Method / VolumeCollection Time Received TimeBloodBLOOD SPECIMEN / UnknownVenipuncture / Diubhtw8608/10/2025 3:30 PM EDT1 3:30 PM EDT Narrative Authorizing ProviderResult TypeResult StatusAdarslucie Posada MDLABORATORY Final ResultPerforming OrganizationAddressCity/State/ZIP CodePhone Number [facility] [address] [place] [address], * PROTEIN, TOTAL (FOR SEPG) (08/10/2025 3:30 PM EDT)ComponentValueRef RangeTest MethodAnalysis TimePerformed AtPathologist SignatureProtein, Total7.06.3 - 8.0 g/dL08/11/2025 2:02 PM EDTCFULTON COUNTY [facility] LABSpecimen (Source) Anatomical Location / LateralityCollection Method / VolumeCollection Time Received TimeBloodBLOOD SPECIMEN / UnknownVenipuncture / Dccuyne0108/10/2025 3:30 PM EDT1 3:30 PM EDT Narrative Authorizing ProviderResult TypeResult StatusAdarslucie Posada MDLABORATORY Final ResultPerforming OrganizationAddressCity/State/ZIP CodePhone Number [facility] [address] [place] [address], [place] * PROTEIN ELECTROPHORESIS SERUM (P) (08/10/2025 3:30 PM EDT)ComponentValueRef RangeTest MethodAnalysis TimePerformed AtPathologist SignatureAlbumin for SPE 4.093.43 - 5.41 g/dL08/12/2025 8:50 [facility] Alpha 1 Globulin0.280.18 - 0.43 g/dL08/12/2025 8:50 AM [facility] LABAlpha 2 Globulin0.650.42 - 0.98 g/dL08/12/2025 8:50 AM EDT [facility] LABBeta Globulin1.090.61 - 1.17 g/dL08/12/2025 8:50 AM [facility] LABGamma Globulin0.900.53 - 1.51 g/dL 08/12/2025 8:50 AM [facility] LABInterpretation (Prot Electro)No definitive M protein is identified on protein electrophoresis.No definitive M protein is identified on protein electrophoresis.08/12/2025 8:50 AM [facility] LABM-Protein Edjkrpns66/09/2025 8:50 AM EDT [facility] LABComment:Not Applicable.M-Protein Concentration 0.00<=0.00 g/dL08/12/2025 8:50 AM [facility] LABSPE Staff ReviewReviewed by Shelley Eugene MD08/12/2025 8:50 AM [facility] LABSpecimen (Source)Anatomical Location / LateralityCollection Method / VolumeCollection TimeReceived TimeBloodBLOOD SPECIMEN / Unknown Venipuncture / Wubmdrp4108/10/2025 3:30 PM EDT1 3:30 PM EDT Narrative [facility] - 08/12/2025 8:50 AM EDT Serum electrophoresis test was performed using the Pinpoint MD V8 NEXUS capillary electrophoresis method. Results obtained with different assay methods or kits cannot be used interchangeably. Authorizing ProviderResult TypeResult StatusAdarsh Vennepureddy MDLABORATORY Final ResultPerforming OrganizationAddressCity/State/ZIP CodePhone Number [facility] [address] [address], [place] * (ABNORMAL) KAPPA/LOPEZ,FREE,SER (08/10/2025 3:30 PM EDT)ComponentValueRef Range Test MethodAnalysis TimePerformed AtPathologist SignatureKappa Free, Serum36.8 (H)3.3 - 19.4 mg/L1 3:03 PM EDTCFULTON COUNTY [facility] LAB Comment: Rarely, increased serum free light chains levels may not be detected or accurately quantified due to prozone phenomenon or in high viscosity samples using this immunoturbidimetric assay. Correlation with other laboratory results and clinical findings is recommended. The Byars Free Light Chain was performed using the Binding Site Optilite immunoturbidimetric method. Result obtained with different assay methods or kits cannot be used interchangeably. Lambda Free, Serum23.95.7 - 26.3 mg/L1 3:03 PM EDTCFULTON COUNTY HEALTH [facility] LABComment: Rarely, increased serum free light chains [...] K/L Ratio, Serum1.540.26 - 1.6508/11/2025 3:03 PM EDHOLZ[facility] LABSpecimen (Source)Anatomical Location / LateralityCollection Method / VolumeCollection TimeReceived TimeBloodBLOOD SPECIMEN / UnknownVenipuncture / Rocciei9008/10/2025 3:30 PM EDT1 3:30 PM EDT Narrative Authorizing ProviderResult TypeResult StatusAdarsh Vennepureddy MDLABORATORY Final ResultPerforming OrganizationAddressCity/State/ZIP CodePhone Number [facility] [address] [facility] [address] [place] [phone], * (ABNORMAL) VITAMIN B12 (08/10/2025 3:30 PM EDT)ComponentValueRef RangeTest MethodAnalysis TimePerformed AtPathologist SignatureVitamin B12>2,000(H)232 - 1,245 pg/mL08/11/2025 2:17 PM EDTCFULTON COUNTY [facility] LABSpecimen (Source)Anatomical Location / LateralityCollection Method / VolumeCollection TimeReceived TimeBloodBLOOD SPECIMEN / UnknownVenipuncture / Wqyxzyw0008/10/2025 3:30 PM EDT1 3:30 PM EDT Narrative Authorizing ProviderResult TypeResult StatusAdarsh Swetha MDLABORATORY Final ResultPerforming OrganizationAddressty/State/ZIP CodePhone Number [facility] [address] [facility] [place] [phone], [place] * THYROID STIMULATING HORMONE (08/10/2025 3:30 PM EDT)ComponentValueRef Range Test MethodAnalysis TimePerformed AtPathologist SignatureTSH3.9400.270 - 4.200 mIU/L1 1:48 PM EDTCFULTON COUNTY [facility] LABSpecimen (Source) Anatomical Location / LateralityCollection Method / VolumeCollection Time Received TimeBloodBLOOD SPECIMEN / UnknownVenipuncture / Dvsdgig6008/10/2025 3:30 PM EDT1 3:30 PM EDT Narrative Authorizing ProviderResult TypeResult StatusAdalaverne Posada MDLABORATORY Final ResultPerforming OrganizationAddressCity/State/ZIP CodePhone Number [facility] [address] [place], [place] [phone], [place] * IRON AND TIBC (08/10/2025 3:30 PM EDT)ComponentValueRef RangeTest Method Analysis TimePerformed AtPathologist ItivrcuhpOjdu2583 - 186 ug/dL08/11/2025 1:41 PM EDTCFULTON COUNTY [facility]ENTER WLHPQEE101193 - 386 ug/dL08/11/2025 1:41 PM EDTCFULTON COUNTY [facility] LABTransferrin Nfypggjmzw40.015.0 - 57.0 %08/11/2025 1:41 PM EDTCFULTON COUNTY [facility] LABSpecimen (Source) Anatomical Location / LateralityCollection Method / VolumeCollection Time Received TimeBloodBLOOD SPECIMEN / UnknownVenipuncture / Kxaizgx5808/10/2025 3:30 PM EDT10/05/2025 3:30 PM EDT Narrative Authorizing ProviderResult TypeResult StatusAdarslucie Posada MDLABORATORY Final ResultPerforming OrganizationAddressCity/State/ZIP CodePhone Number [facility] [address] [place] [address], * HAPTOGLOBIN (08/10/2025 3:30 PM EDT)ComponentValueRef RangeTest MethodAnalysis TimePerformed AtPathologist NjjnzcmjxRphykddxyqq71712 - 238 mg/dL08/11/2025 1:41 PM EDTCFULTON COUNTY [facility] LABSpecimen (Source)Anatomical Location / LateralityCollection Method / VolumeCollection TimeReceived Time BloodBLOOD SPECIMEN / UnknownVenipuncture / Qzkoydw3908/10/2025 3:30 PM EDT 08/10/2025 3:30 PM EDT Narrative Authorizing ProviderResult TypeResult StatusAdalaverne Posada MDLABORATORY Final ResultPerforming OrganizationAddressCity/State/ZIP CodePhone Number [facility] [address] [place] [address], * FOLATE, SERUM (08/10/2025 3:30 PM EDT)ComponentValueRef RangeTest Method Analysis TimePerformed AtPathologist SignatureFolate>20.0>4.7 ng/mL08/11/2025 2:17 PM EDTCFULTON COUNTY HEALTH CENTER LABComment: A result of > 20 ng/mL is not necessarily indicative of a pathologic or treatable condition: it reflects a limitation of the test methodology. Assay reference range: 4.8 to 24.2 ng/mL. Suitable for detection of folate deficiency. Reference: Folate III (Folate III) [package insert V 1.0 [place]]. [employer], [place], [place]: September 2015. Specimen (Source)Anatomical Location / LateralityCollection Method / Volume Collection TimeReceived TimeBloodBLOOD SPECIMEN / UnknownVenipuncture / Unknown 08/10/2025 3:30 PM EDT1 3:30 PM EDT Narrative Authorizing ProviderResult TypeResult StatusAdarslucie Posada MDLABORATORY Final ResultPerforming OrganizationAddressCity/State/ZIP CodePhone Number [facility] [address] [place] [phone], * (ABNORMAL) FERRITIN (08/10/2025 3:30 PM EDT)ComponentValueRef RangeTest Method Analysis TimePerformed AtPathologist ZusqmrdidSidhrhon893.0(H)14.7 - 205.1 ng/mL08/11/2025 1:48 PM EDTCFULTON COUNTY [facility] LABSpecimen (Source) Anatomical Location / LateralityCollection Method / VolumeCollection Time Received TimeBloodBLOOD SPECIMEN / UnknownVenipuncture / Siqvito1708/10/2025 3:30 PM EDT1 3:30 PM EDT Narrative Authorizing ProviderResult TypeResult StatusAdars Frankepessentia health MDLABORATORY Final ResultPerforming OrganizationAddressCity/State/ZIP CodePhone Number [facility] [address] [place] [address], * (ABNORMAL) COMPREHENSIVE METABOLIC PANEL (08/10/2025 3:30 PM EDT)Component ValueRef RangeTest MethodAnalysis TimePerformed AtPathologist Signature Protein, Total7.26.3 - 8.0 g/dL08/10/2025 3:54 PM EDTNORTHCOAST [facility] LABAlbumin4.23.9 - 4.9 g/dL08/10/2025 3:54 PM EDTNORTHCOAST [facility] LABCalcium, Total9.48.5 - 10.2 mg/dL08/10/2025 3:54 PM EDTNORTHCOAST [facility] LABBilirubin, Total0.20.2 - 1.3 mg/dL 08/10/2025 3:54 PM EDTNORTHCOAST [facility] LABAlkaline Omwbumhlsks8564 - 123 U/L1 3:54 PM EDTNORTHCOAST [facility] AXNVWL7946 - 35 U/L1 3:54 PM EDTNORTHCOAST [facility] LZTKPF555 - 38 U/L1 3:54 PM EDTNORTHCFORMERLY [facility] QMEYexyhlg8253 - 99 mg/dL08/10/2025 3:54 PM [facility] LABComment: The [place] Diabetes Association (ADA) provides guidance for cutoff [...] Standards of Medical Care in Diabetes 2016, [place] [employer] Association. Diabetes Care. 2016.39(Suppl 1). BUN30(H)7 - 21 mg/dL08/10/2025 3:54 PM [facility] Creatinine1.21(H)0.58 - 0.96 mg/dL08/10/2025 3:54 PM [facility] HBDIzjmcd890(H)136 - 144 mmol/L1 3:54 PM [facility] LABPotassium3.6(L)3.7 - 5.1 mmol/L1 3:54 PM [facility] MNVFxcvysph474(H)98 - 107 mmol/L1 3:54 PM [facility] XIWIA52169 - 30 mmol/L1 3:54 PM [facility] LABAnion Ljx653 - 15 mmol/L 08/10/2025 3:54 PM [facility] LABEstimated Glomerular Filtration Rate47(L)>=60 mL/min/1.73m 08/10/2025 3:54 PM [facility] LABComment:Estimated Glomerular Filtration Rate (eGFR) is [...] VolumeCollection TimeReceived TimeBloodBLOOD SPECIMEN / UnknownVenipuncture / Zghnuum8408/10/2025 3:30 PM EDT1 3:30 PM EDT Narrative Authorizing ProviderResult TypeResult StatusAdarsh Vennepureddy MDLABORATORY Final ResultPerforming OrganizationAddressCity/State/ZIP CodePhone Number [facility] [address] [place] [address] * (ABNORMAL) COMPLETE BLOOD COUNT AND DIFFERENTIAL (08/10/2025 3:30 PM EDT) ComponentValueRef RangeTest MethodAnalysis TimePerformed AtPathologist SignatureWBC6.113.70 - 11.00 k/uL08/10/2025 3:37 PM EDTNORTGARD[facility] LABRBC3.31(L)3.90 - 5.20 m/uL08/10/2025 3:37 PM EDTNORT[facility] RGBHgegpmapko33.9(L)11.5 - 15.5 g/dL08/10/2025 3:37 PM EDTNORTGARD[facility] MEANlugeouujd44.4(L)36.0 - 46.0 % 08/10/2025 3:37 PM EDTNORTGARD[facility] YETNPK835.9(H)80.0 - 100.0 fL08/10/2025 3:37 PM EDTNORTHCFORMERLY [facility] AULCLP48.926.0 - 34.0 pg08/10/2025 3:37 PM EDTNORTGARD[facility] GJLVUTS72.6 30.5 - 36.0 g/dL08/10/2025 3:37 PM EDTNORTGARD[facility] LAB RDW-CV14.411.5 - 15.0 %08/10/2025 3:37 PM EDTNOGR[facility] LABPlatelet Jsaqw087832 - 400 k/uL08/10/2025 3:37 PM EDTNORTGARDEN [facility] PCIGNH09.89.0 - 12.7 fL08/10/2025 3:37 PM EDTNOGRANT [facility] LABNeutrophils %37.4%08/10/2025 3:37 PM EDTST[facility] LABAbs Neut2.291.45 - 7.50 k/uL08/10/2025 3:37 PM EDTNOGR[facility] LABLymphocytes %46.5%08/10/2025 3:37 PM EDTNOGR[facility] LABAbs Lymph2.841.00 - 4.00 k/uL08/10/2025 3:[address] [facility] LABMonocytes %10.5%08/10/2025 3:[address] [facility] LABAbs Mono0.64<0.87 k/uL08/10/2025 3:37 PM EDTNOGR[facility] LABEosinophils %4.9%08/10/2025 3:37 PM EDTNOGR[facility] LABAbs Eosin0.30<0.46 k/uL08/10/2025 3:37 PM EDTNOGR[facility] LABBasophils %0.5%08/10/2025 3:37 PM EDTNORTGARDEN CITY [facility] LABAbs Baso0.03<0.11 k/uL08/10/2025 3:37 PM EDTNORTGARD[facility] LABImmature Granulocytes %0.2% 08/10/2025 3:37 PM EDTNORTGARDEN CITY [facility] LABAbs Immature Gran <0.03<0.10 k/uL08/10/2025 3:37 PM EDTNOGR[facility] LABNRBC 0.0/100 WBC08/10/2025 3:37 PM EDTNORTGARDEN CITY [facility] LABAbsolute nRBC<0.01<0.01 k/uL08/10/2025 3:37 PM EDTNORTGARDEN [facility] LAB Diff RbnmBjwc48/07/2025 3:37 PM EDTRTGARDEN CITY [facility]ITAL LAB Specimen (Source)Anatomical Location / LateralityCollection Method / Volume Collection TimeReceived TimeBloodBLOOD SPECIMEN / UnknownVenipuncture / Utoscjb0608/10/2025 3:30 PM EDT1 3:30 PM EDT Narrative Authorizing ProviderResult TypeResult StatusAdarsh Swetha MDLABORATORY Final ResultPerforming OrganizationAddressCity/State/ZIP CodePhone Number [facility] [address] [place] [address] * CA 15-3 BLD (08/10/2025 3:30 PM EDT)ComponentValueRef RangeTest MethodAnalysis TimePerformed AtPathologist SignatureBreast CA 15-317.0<26.0 U/mL08/11/2025 2:02 PM EDTCFULTON COUNTY [facility]ALTH [facility] LABComment:The CA 15-3 test methodology used is the Electrochemiluminescence Immunoassay by [employer].Results obtained with different methods or kits cannot be used interchangeably.Specimen (Source)Anatomical Location / LateralityCollection Method / VolumeCollection TimeReceived TimeBloodBLOOD SPECIMEN / Unknown Venipuncture / Gyryqiu6808/10/2025 3:30 PM EDT1 3:30 PM EDT Narrative Authorizing ProviderResult TypeResult StatusAdarsh Swetha MDLABORATORY Final ResultPerforming OrganizationAddressCity/State/ZIP CodePhone Number [facility] [address] [facility] [address], [place] * EXTERNAL IMAGING (07/27/2025 1:54 PM [...] AM EDT Images were obtained outside of [facility] Procedure Note Provider, [facility] [place] - 07/28/2025 Images were obtained outside of [facility] Authorizing ProviderResult TypeResult StatusCcf ProviderRADIOLOGYFinal Result from Last 3 Months Insurance * Guarantor: Liseth SchulerZoya TypeRelation to PatientDate of BirthPhone Billing AddressSelf [id number] [address] [place] [id number] Care Teams Team MemberRelationshipSpecialtyStart DateEnd Cassie Tejada MD [address] [place] [phone] PCP - GeneralFamily Medicine01/08/12 Astrid Person PA-C [address] [place] [address] Neurology07/27/25
[2025-10-06 15:08] LABS: Alanine Aminotransferase 20 U/L (14-59); Albumin Globulin Ratio 1.1; Albumin Level 3.9 g/dL (3.4-5.0); Alkaline Phosphatase 58 U/L (46-116); Anion Gap 13.8; Aspartate Amino Transferase 21 U/L (15-37); Blood Urea Nitrogen 27.0 mg/dL (7.0-18.0); Calcium 9.3 mg/dL (8.5-10.1); Carbon Dioxide 25.7 mmol/L (21.0-32.0); Chloride 109 mmol/L (98-107); Cholesterol 135 mg/dL (<=200); Estimated GFR (African America 58 (>=60 mL/min/1.73m^2); Estimated GFR (Non-African Ame 48 (>=60 mL/min/1.73m^2); Globulin 3.5 g/dL; Glucose 92 mg/dL (74-106); HDL Cholesterol 68 mg/dL (40-60); NT Pro B Type Natriuretic Pept 460.0 pg/mL (<=1800.0); Potassium 3.5 mmol/L (3.5-5.1); Sodium 145 mmol/L (136-145); Total Protein 7.4 g/dL (6.4-8.2); Triglycerides 79 mg/dL (<=150); VLDL CHOLESTEROL 15.8 mg/dL
[2025-10-07 08:09] LABS: C-Reactive Protein, Cardiac 0.32 mg/L (0.00-3.00)
== END 2025-10-06 13:51 | disposition home or self-care (01) ==
LOC: LAB 13:54
PROVIDERS: PCP Family Medicine; Visit Provider Internal Medicine Cardiovascular Disease
DX: R06.00 Dyspnea, unspecified (principal); R07.9 Chest pain, unspecified; R00.2 Palpitations; I25.10 Atherosclerotic heart disease of native coronary artery without angina pectoris
CPT/HCPCS: 36415; 80053; 80061; 82172; 83695; 83880; 86140

== ENCOUNTER 2025-10-12 15:26 | Outpatient (OUT) | payer MEDICARE, OTHER, SELFPAY ==
--- NOTE | 2025-10-12 15:35 | MR_ITS ---
The [address] [address] Patient Name: AAKASH REYNOSO MRN: [id number] date: 1950 Sex: F Assigned Patient Location: MRI Current Patient Location: Accession/Order Number: [id number] Exam Date: 10/12/2025 16:00 Report Date: 10/13/2025 09:16 At the request of: KARON LANG NP Procedure: MR thoracic spine wo con MR thoracic spine wo con 10/12/2025 4:43 PM SIGNS AND SYMPTOMS: ^thoracis degenerative disc disease, back pain PROTOCOL: Multiplanar multisequence MR images of the thoracic spine without IV contrast COMPARISON: None. FINDINGS: Markers are present posterior to the T1-T2 intervertebral disc/T2 spinous process as well as at T7. The bones of the thoracic spine are in anatomic alignment. There is preservation of vertebral body heights. There is mild intervertebral disc height loss at T7-T8 with Schmorl's information the superior endplate of T8. The intervertebral discs are otherwise preserved within the spine. No epidural or paraspinous fluid collection is appreciated. The visualized paraspinous soft tissues are within normal limits. At T1-T2: There is a normal disc, central canal, and neural foramen. At T2-T3: There is a normal disc, central canal, and neural foramen. At T3-T4: There is a normal disc, central canal, and neural foramen. At T4-T5: There is a normal disc, central canal, and neural foramen. At T5-T6: There is a normal disc, central canal, and neural foramen. At T6-T7: There is a normal disc, central canal, and neural foramen. At T7-T8: There is a normal disc, central canal, and neural foramen. At T8-T9: There is a normal disc, central canal, and neural foramen. At T9-T10: There is a normal disc, central canal, and neural foramen. At T10-T11: There is a normal disc, central canal, and neural foramen. At T11-T12: There is a normal disc, central canal, and neural foramen. At T12-L1: There is a normal disc, central canal, and neural foramen. MR/MR thoracic spine wo con IMPRESSION: No significant spinal canal or neural foraminal narrowing. There is mild intervertebral disc height loss at T7-T8 with Schmorl's information the superior endplate of T8. Impression dictated by: Waylon Ramon M.D. 10/13/2025 9:16 AM Dictation Location: [employer] Electronically authenticated by: [id number] Y Date: 10/13/2025 09:16
== END 2025-10-12 15:27 | disposition home or self-care (01) ==
LOC: MRI 15:28
PROVIDERS: PCP Family Medicine; Visit Provider Nurse Practitioner
DX: M51.34 Other intervertebral disc degeneration, thoracic region (principal); M54.9 Dorsalgia, unspecified
CPT/HCPCS: 72146

== ENCOUNTER 2025-10-25 12:19 | Outpatient (OUT) | payer MEDICARE, OTHER, SELFPAY ==
--- OUTSIDE RECORDS SUMMARY | 2025-10-18 10:18 | XMS_ITS | Continuity of Care Document ---
Author Organization [facility] Address [address] [place] [address] Phone Care Team Providers Care Debrander Name Role Phone Cassie Tejada MD Primary Care Provider Nick Posada MD Attending Provider [phone] Terry Hardwick MD Referring Provider Elissa Bowman MD Attending Provider Terry Hardwick MD Attending Provider [phone] Astrid Merrill APRN Attending Provider Care Teams Patient Care Team Team Status: Active Member Role/Relationship Status Dates Cassie Tejada MD Primary Care Provider Active Visit Care Team Team Status: Active Member Role/Relationship Status Dates Cassie Tejada MD Primary Care Provider Active Start: August 10, 2025 Barrett Pfeiffer ProviderActiveStart: August 10, 2025 Visit Care Team Team Status: Active Member Role/Relationship Status Dates Cassie Tejada MD Primary Care Provider Active Start: September 02, 2025 Esperanza Arroyo ProviderActiveStart: September 02, 2025 Jerome Arroyo ProviderActiveStart: September 02, 2025 Barrett Vickers ProviderActiveStart: September 02, 2025 Visit Care Team Team Status: Inactive Member Role/Relationship Status Dates Cassie Tejada MD Primary Care Provider Active Start: September 23, 2025 End: September 23, 2025Barrett Arroyo ProviderActiveStart: September 23, 2025 End: September 23, 2025 Visit Care Team Team Status: Active Member Role/Relationship Status Dates Cassie Tejada MD Primary Care Provider Active Start: October 06, 2025 Barrett Arroyo ProviderActiveStart: October 06, 2025 Patient Care Team Team Status: Inactive Member Role/Relationship Status Dates Cassie Tejada MD Primary Care Provider Active Start: October 18, 2025 End: October 18trishhugh Urena Miguel Merrill ProviderActiveStart: October 18, 2025 End: October 18, 2025 Chief Complaint and Reason for Visit Chief Complaint Admit Date I25.10 R07.9 R94.31 R00.1 R00.1 R07.9 R5 3.83 September 02, 2025 9:28am 8 week f/u September 23, 2025 1:00pm 3-4 month follow up October 18, 2025 2:23pm Reason for Visit Admit Date Agatston coronary artery calcium score b etween 100 and 199 September 23, 2025 1:00pm Aortic valve sclerosis September 23 1:00pm Atypical chest pain September 23, 2025 1:00pm Cardiac murmur September 23, 2025 1:00pm Abnormal MRI, lumbar spine October 2:23pm Benign essential tremor October 18, 2 025 2:23pm Low back pain October 18, 2025 2:23pm Polyneuropathy October 18, 2025 2:23pm Vertigo October 18, 2025 2:23pm Health Concerns Concerns Start Date Ongoing cardiac risk reducti on via lifestyle means: Regular movement/exercise, heart healthy low-sodium diet. Allergies, Adverse Reactions, Alerts Allergen Type Severity Reaction Last Updated Verified Status Comments ibandronate sodium Allergy Unknown Hives Decemb er 2024 2:48pm Yes Active primidoneAllergyUnknownHivesDeceer 2024 2:48pmYesActiveOnset Date: 05/14/2016, Onset Date: 02/27/2016gabapentinAllergyUnknownDizzinessDeceer 2024 2:48pmYesActivetrouble focusing, vision changespregabalinAllergy UnknownDizzinessDeceer 2024 2:48pmYesActive Social History Smoking Status Status Start Date End Date Date of Observa tion Ex-smoker (finding) August 03, 2025 12:22pm Observation Status Observation Response Date of Response Legal Sex Female (finding) [facility] Family History Relationship Condition [...] 2:55pmUnknownActivePeripheral neuralgiaAugust 2023 1:20pmUnknownActiveScreening mammogram for breast cancerSeptember 10, 2024 2:19pmUnknownActiveLow back painAugust 2024 1:20pmUnknownActive FatigueAugust 2024 1:22pmUnknownActiveInadequate oral nutritional intake May 17, 2025 11:17amUnknownActiveCAD (coronary artery disease)May 17, 2025 11:55amUnknownActiveBradycardiaAugust 2024 1:22pmUnknownActiveDiarrheaJuly 2024 7:57amUnknownActiveDiarrheaSeptember 2024 10:40amUnknownActive History of colostomy reversalJuly 2024 11:57amUnknownActiveCardiac murmur September 23, 2025 1:29pmUnknownActiveLeukocytosisJuly 2024 12:45am UnknownActiveAtypical chest painNovember 2024 1:29pmUnknownActiveLow serum vitamin E26Sbte 2024 11:19amUnknownActiveVertigoAugust 2024 1:19pm UnknownActivePolyneuropathyAugust 2024 1:19pmUnknownActiveAortic [...] provided by Dr. Dietz's office.Ondansetron 4 mg tablet,nnaiijydqozosySmxahzvopgqj9YFDHZ3U798Uerb 2024 11:00pmJuly 2024 5:14pmPropranolol 80 mg haczplHpflnoinhdui92CSBM Twice rrpxv515Gdqjuh 12th, 2025 11:00pmAugust 2024 12:40pmTopiramate 100 mg yymcrxIswnht638FXILHqugr uyfiy34492Fnqahqj 2024 9:17amComplies with drug therapyFluticasone Propionate 50 mcg/actuation spray,motoxoalmuQmtcvx2XONHQ ZTTDJEGIJYNbnmt083Nnxhtgd 2024 10:12amadminister into each nostrilComplies with drug therapyPropranolol 80 mg xswksmSvahqqvkpdhv40ESVNEdwpt dailyJuly 2024 11:00pmJuly 2024 11:42amTopiramate 100 mg tnledyFmnnbsxkavrr745UTCO DailyJuly 2024 11:00pmAugust 2024 1:26pmLoperamide 2 mg Capsule Hucmgbjbmysb2RRITR9J as needed for Mbijtkje7360Fikg 2024 11:00pmDecember 2024 2:48pmTopiramate 100 mg uityaaFowzjmyrqrro979OJWFHexqz dailyAugust 2024 1:26pmOctober 2024 9:17amVitamin B Complex zaqpiklKdvqer3RTNYN DailySeptember 2024 11:00pmComplies with drug therapyAspirin (Adult Aspirin Regimen) 81 mg tablet,delayed release (DR/EC)Connut87UMAKPowbxUltzyvdxm 2024 11:00pmComplies with drug therapyPropanolDiscontinuedJanuary 2018 12:00amAugust 2023 9:16amToprimateDiscontinuedJanuary 2018 12:00amNovember 2023 8:23amMeclizine 25 mg ocyofxBvxevgofyvwr42WCGCRnxbz December 17, 2024 12:00amJuly 2024 3:35pmPregabalin 75 mg capsule Odcuhplduvur65YGLSHcvoa dailyFebruary 2024 12:00amJuly 2024 12:32pm Multivitamin (One Daily Multivitamin) mvfnydNwseec5GEONQVoxesQmpucl 2024 11:00pmComplies with drug therapyPropranolol 80 mg lcwxyfMsrasj89NVFIRssfb daily June 23, 2025 12:40pmComplies with drug therapyMeloxicam 7.5 mg tabletActive 7.5MGPODaily as neededSeptember 23, 2025 12:00amComplies with drug therapy Magnesium Aspart,Citrate,Oxide 400 mg magnesium capsuleDiscontinuedMGPOAugus2023 11:00pmAugust 2023 1:10pmGabapentin 300 mg yttdhegWiszaxvzpfge841 MGPODaily at [facility]2023 11:00pmAugust 2023 1:20pmPregabalin (Lyrica) 25 mg cdvqytpBlbdutzsrklq20VEDVZwbwj at smkpzos98071Fvoagk 5th, 2024 11:00pmSeptember 10, 2024 1:53pmPeripheral neuralgia Neuralgia and neuritis, unspecifiedPropranolol 20 mg rfgullOnnzzxkbegwn64QZUE Mymjc622Gnglax 28th, 2024 11:00pmJuly 2024 5:13pmTopiramate (Topamax) 50 mg blhtshUhxistfqqori74FQQLOqyod dailySeptember 10, 2024 12:00amJuly 2024 5:13pmFreeTextSi tablet Orally Twice a day; Note: Source Status: Not- Taking\PRN2 QAM and 2 QHS; Provider: Terrell Matthews ( )Potassium Chloride 10 mEq tablet,ER particles/vbmppdkgEawzlmtnajqe2MZIKTOzact daily September 10, 2024 12:00amNovember 2023 1:52pmFreeTextSi tablet with food Orally Twice a day; Note: Source Status: Start; Refills: 0; Qty: 30Tablet; Provider: Terrell Matthews ECalcium Carbonate-Vitamin D3 600 mg-5 mcg (200 unit) exvspuKxhfiy7GODLCYhutuGmqakguv 7th, 2024 12:00amMedication Name: Calcium + D; Note: Source Status: Not-Taking\PRN; Provider: Terrell Matthews ( ) Complies with drug therapyBiotin 5 mg fcdkmmKbvood6ILBGLgjuzDpbwvtaz 7th, 2024 12:00amComplies with drug therapyCyanocobalamin (Vitamin B-12) 1,000 mcg capsule Mlrvkm6129GXHFLWouiiCysmpqte 2023 12:00amComplies with drug therapy Sulfamethoxazole-Trimethoprim 800-160 mg vcodcvQahylfittnca3PHQIDWpwff September 10, 2024 12:00amFebruary 2024 11:28amFluticasone Propionate 50 mcg/actuation spray,wfiytwfcgqJjsniwhhkaag2QVZABKAHRYLLIWJBhjvo271Lkgwzbrut 7th, 2025 11:00pmOctober 2024 10:13amadminister into each nostrilvitamin b complexDiscontinuedPOSeptember 2024 11:00pmSeptember 2024 11:22am Immunizations Immunization Event Date Not Given Reason Dose Number Charge Loader Lot Number Reason(s) Given Vaccine Information Statement (VIS) Detail Administration Location COVID-19 mRNA, Comirandrew (ScriptRock) September 03, 2021 COVID-19 mRNA, Comirandrew (ScriptRock)April 06, 2022Fluzone TIV High-Dose 65YR+ July 12, [id number] [facility], unspecified formulationSeptember 2016influenza, unspecified formulationSeptember neumococcal Conjugate Vaccine, 13 valentSeptember 2016Pneumococcal Conjugate Vaccine, 20 valentSeptember 2021 Relevant Diagnostic Tests and/or Laboratory Data Laboratory Results Test Collection Date/Time Result Date/Time Result Interpretation Reference Range Result Comment Performing Site Albumin (Send Out) August 10, 2025 2:30pm August 10, 025 2:30pm 4.09 g/dL 3.43-5.41Serum ImmunofixationOct2024 2:30pmOctober 2024 2:30pmNo M protein is identified.No M protein is identified.Free [place]/Lambda Light Chain RatioOctober 2024 2:30pmOctober 2024 2:30pm1.540.26-1.65CA 15-3 AntigenOct2024 2:30pmOctober 2024 1:02pm17.0 U/mL<26.0The CA 15-3 test methodology used is the Electrochemiluminescence Immunoassay by [employer].Results obtained with different methods or kits cannot be used interchangeably.Serum Total ProteinAugust 10, 2025 2:30pmOctober 2024 1:02pm7.0 g/dL6.3-8.0FolateAugust 10, 2025 2:30pmOctober 2024 2:30pm>20.0 ng/mL>4.7A result of > 20 ng/mL is not necessarily indicative of a pathologic or treatable condition: it reflects a limitation of the test methodology.Assay reference range: 4.8 to 24.2 ng/mL. Suitable fordetection of folate deficiency.Reference:Folate III (Folate III) [package insert V 1.0 [place]]. [employer], [place], [place]: September 2015.Vitamin B12 LevelAugust 10, 2025 2:30pmOctober 2024 1:02pm>2000 pg/mLAbove high tmrawr460-6252Qwdn LevelAugust 10, 2025 2:30pmOct2024 12:42pm72 ug/zJ96-959Jveqohxnfjg August 10, 2025 2:30pmOctober 2024 12:42ms554 mg/bU51-372Tytkeve Stimulating Hormone 3rd GenAugust 10, 2025 2:30pmOctober 2024 2:30pm3.940 mIU/L0.270-4.200FerritinAugust 10, 2025 2:30pmOctober 2024 12:45cp974.0 ng/mLAbove high .7-205.1Alanine Aminotransferase (ALT/SGPT)August 10, 2025 2:30pmOct2024 2:30pm16 U/L7-38Basophils # (Auto)August 10, 2025 2:30pmOctober 2024 2:30pm0.03 k/uL<0.11Miscellaneous TestDecember 2024 2:07pmDecember 2024 2:07pmCOMMENT.Test Ordered: [id number] Apolipoprotein BApolipoprotein B 47 mg/dL BN Reference Range: <90 Desirable< 90 Borderline High 90 - 99 High 100 - 130 Very High >130 ASCVD RISK THERAPEUTIC TARGET CATEGORY APO B (mg/dL) Very High Risk <80 (if extreme risk <70) High Risk <90 Moderate Risk <90Performed at: [facility] [place], [place] [id number] Director: Saniya Nicholas MD, Phone: [phone] at: [facility] [employer] [id number] Director: James Faye PhD, Phone: [phone] Cardiac C-Reactive ProteinDece2024 2:07pmDecember 2024 2:07pm0.32 mg/L0.00-3.00Relative Risk for Future Cardiovascular Event Low <1.00 Average 1.00 - 3.00 High >3.00Performed at: [facility] [employer] [id number] Director: James Faye PhD, Phone: [phone] Cholesterol/HDL RatioDece2024 2:07pmDecember 2024 2:07pm2.03.3 - 4.4 LOW RISK4.4 - 7.1 AVERAGE RISK7.1 - 11.0 MODERATE RISK>11.0 HIGH RISKB-Type Natriuretic PeptideDece2024 2:07pmDecember 2024 2:64xo754.0 pg/mL <=1800.0Anion GapDece2024 2:07pmDecember 2024 2:07pm13.8 Vggnj-7-EmnxhldrsBglvgqb 2024 2:30pmOctober 2024 2:30pm0.28 g/dL 0.18-0.43Leuk/Lymph Sign Pathologist (Misc)August 10, 2025 2:30pmOctober 2024 2:30pmReviewed by Shelley Eugene MDFree Lambda Light Chains, QuantOctober 2024 2:30pmOctober 2024 2:30pm23.9 mg/L5.7-26.3Rarely, increased serum free [...] Iron Binding CapacityAugust 10, 2025 2:30pmOctober 2024 12:10td846 ug/pZ473-379AefdcufOiegmkw 7th, 2025 2:30pmOct2024 2:30pm4.2 g/dL3.9-4.9Basophils (%) (Auto)August 10, 2025 2:30pmOct2024 2:30pm0.5 %Cholesterol LevelDece2024 2:07pmDece2024 2:95wo889 mg/dL<=200Albumin/Globulin RatioDe2024 2:07pmDece2024 2:07pm1.1Nurpi-1-JfrslxcebSyrzagh 7th, 2025 2:30pm August 10, 2025 2:30pm0.65 g/dL0.42-0.98Free [place] Light Chains, QuantAugust 10, 2025 2:30pmOct2024 2:30pm36.8 mg/LAbove high normal3.3-19.4 Rarely, increased serum free light chains levels may not be detected or accurately quantified due to prozone phenomenon or in high viscosity samples using this immunoturbidimetric assay. Correlation with other laboratory results and clinical findings is recommended. The [place] Free Light Chain was performed using the Binding Site Optilite immunoturbidimetric method. Result obtained with different assay methods or kits cannot be used interchangeably.Iron Saturation August 10, 2025 2:30pmOct2024 12:42pm30.0 %15.0-57.0Aspartate Amino Transf (AST/SGOT)August 10, 2025 2:30pmOct2024 2:30pm22 U/L13-35 Eosinophils # (Auto)August 10, 2025 2:30pmOct2024 2:30pm0.30 k/uL <0.46HDL CholesterolDece2024 2:07pmDecemb2024 2:07pm68 mg/dL Above high ndmrla48-54> or =60 mg/dl - LOW CARDIOVASCULAR RISK<40 mg/dl - HIGH CARDIOVASCULAR RISKAlbuminDece2024 2:07pmDecemb2024 2:07pm3.9 g/dL3.4-5.0Beta GlobulinsOct2024 2:30pmOctober 2024 2:30pm1.09 g/dL0.61-1.17Total BilirubinOct2024 2:30pmOct2024 2:30pm0.2 mg/dL0.2-1.3Eosinophils (%) (Auto)August 10, 2025 2:30pmOctober 2024 2:30pm4.9 %LDL Cholesterol, CalculatedOctober 06, 2025 2:07pmDecemb2024 2:07pm52.0 mg/dL<100 mg/dl RIEEQCD534-689 mg/dl NEAR OR ABOVE BOJNAFN031- 159 mg/dl BORDERLINE APEJ068-820 mg/dl HIGH>190 mg/dl VERY HIGHAlkaline PhosphataseOctober 06, 2025 2:07pmDece2024 2:07pm58 U/V16-495Voveu GlobulinsOct2024 2:30pmOct2024 2:30pm0.90 g/dL0.53-1.51 Carbon Dioxide LevelOct2024 2:30pmOct2024 2:30pm22 mmol/L 22-30HemoglobinOct2024 2:30pmOct2024 2:30pm10.9 g/dLBelow low vkypjm36.5-15.5Triglycerides LevelDece2024 2:07pmDecemb2024 2:07pm79 mg/dL<=150Alanine Aminotransferase (ALT/SGPT)October 06, 2025 2:07pmDecemb2024 2:07pm20 U/O31-21Wyowtbf Electrophoresis NoteOct2024 2:30pmOct2024 2:30pmNo definitive M protein is identified on protein electrophoresis.No definitive M protein is identified on protein electrophoresis.Chloride LevelAugust 10, 2025 2:30pmOct2024 2:30pm 110 mmol/LAbove high ihilgz92-750Aiepimopmch # (Auto)August 10, 2025 2:30pm August 10, 2025 2:30pm2.84 k/uL1.00-4.00VLDL CholesterolDece2024 2:07pmDece2024 2:07pm15.8 mg/dLAspartate Amino Transf (AST/SGOT) October 06, 2025 2:07pmDece2024 2:07pm21 U/X49-54Toclcqi Electrophoresis M-SpikeAugust 10, 2025 2:30pmOct2024 2:30pm0.00 g/dL <=0.00CreatinineAugust 10, 2025 2:30pmOct2024 2:30pm1.21 mg/dLAbove high normal0.58-0.96Lymphocytes (%) (Auto)August 10, 2025 2:30pmOct2024 2:30pm46.5 %BUN/Creatinine RatioOctober 06, 2025 2:07pmDece2024 2:07pm24.5Miscellaneous Test 6August 10, 2025 2:30pmAugust 10, 2025 2:30pm See commentNot Applicable.Random GlucoseAugust 10, 2025 2:30pmAugust 10, 2025 2:30pm89 mg/fN94-88Ntu [place] Diabetes Association (ADA) provides guidance for cutoff values for fasting glucose andrandom glucose. The ADA defines fasting as no caloric intake for at least 8 hours. Fasting plasma gl ucose results between 100 to 125 mg/dL indicate [...] diabetes.Reference: [employer] in Diabetes 2016, [place] Diabetes Association. Diabetes Care. 2016.39(Suppl 1).Monocytes # (Auto)August 10, 2025 2:30pmOctober 2024 2:30pm0.64 k/uL<0.87Blood Urea NitrogenDece2024 2:07pmDecember 2024 2:07pm27.0 mg/dLAbove high normal7.0-18.0 Miscellaneous Test CommentOct2024 2:30pmOctober 2024 2:30pm Reviewed by Shelley Eugene, LEONELotassium LevelAugust 10, 2025 2:30pmOct2024 2:30pm3.6 mmol/LBelow low normal3.7-5.1Neutrophils # (Auto)August 10, 2025 2:30pmOctober 2024 2:30pm2.29 k/uL1.45-7.50Calcium LevelDece2024 2:07pmDecemb2024 2:07pm9.3 mg/dL8.5-10.1Neutrophils (%) (Auto) August 10, 2025 2:30pmOct2024 2:30pm37.4 %Chloride LevelDece2024 2:07pmDecemb2024 2:10kx893 mmol/LAbove high colfkc11-967Eioygw LevelAugust 10, 2025 2:30pmOct2024 2:68sa375 mmol/LAbove high normal 136-144Nucleated Red Blood Cells #August 10, 2025 2:30pmOct2024 2:30pm<0.01 k/uL<0.01Carbon Dioxide LevelDe2024 2:07pmDecemb2024 2:07pm25.7 mmol/L21.0-32.0Blood Urea NitrogenAugust 10, 2025 2:30pm August 10, 2025 2:30pm30 mg/dLAbove high normal7-21Platelet CountAugust 10, 2025 2:30pmOct2024 2:80hh995 k/nT687-183NcfhzdldaeHxggtldg 3rd, 2025 2:07pmDecember 2024 2:07pm1.10 mg/dLAbove high normal0.55-1.02Alkaline PhosphataseOct2024 2:30pmOctober 2024 2:30pm62 U/X15-895Euft Corpuscular HemoglobinOct2024 2:30pmOct2024 2:30pm32.9 pg 26.0-34.0Estimated GFR ()October 06, 2025 2:07pmDecemb2024 2:51xj58Mrpem low normal>=60 mL/min/1.73m 2Calcium LevelOct2024 2:30pmOct2024 2:30pm9.4 mg/dL8.5-10.2Mean Corpuscular Hemoglobin ConcentAugust 10, 2025 2:30pmOct2024 2:30pm32.6 g/dL30.5-36.0 Estimated GFR (Non- AmericanDece2024 2:07pmDecemb2024 2:09kf60Egdul low normal>=60 mL/min/1.73m 2Anion GapOct2024 2:30pm August 10, 2025 2:30pm13 mmol/L8-15Mean Corpuscular VolumeOct2024 2:30pmOct2024 2:33ok446.9 fLAbove high cjolfx89.0-100.0Globulin October 06, 2025 2:07pmDecemb2024 2:07pm3.5 g/dLEstimated GFR (CKD-EPI)August 10, 2025 2:30pmOct2024 2:30pm47 mL/min/1.73m???Below low normal>=60Estimated Glomerular Filtration Rate (eGFR) is calculated using the 2020 CKD-EPI creatinine equation. This equation utilizes serum creatinine, sex, and age as parameters. The creatinine assay has traceable calibration to isotope dilution-mass spectrometry. Refer to KDIGO guidelines for clinical inte rpretation. In patients with unstable renal function, e.g. those with acute kidney injury, the eGFRmay not accurately reflect actual GFR.Red Blood Count August 10, 2025 2:30pmOctober 2024 2:30pm3.31 m/uLBelow low normal 3.90-5.20Glucose LevelDecemb2024 2:07pmDecember 2024 2:07pm92 mg/dL 74-106HematocritOctober 2024 2:30pmOctober 2024 2:30pm33.4 %Below low suxown98.0-46.0Potassium LevelDece2024 2:07pmDecember 2024 2:07pm 3.5 mmol/L3.5-5.1Monocytes (%) (Auto)August 10, 2025 2:30pmOctober 2024 2:30pm10.5 %Sodium LevelDece2024 2:07pmDecember 2024 2:37ac239 mmol/O315-299Ivmifsohh White Blood CountOct2024 2:30pmOctober 2024 2:30pm6.11 k/uL3.70-11.00Total BilirubinDece2024 2:07pmDecember 2024 2:07pm0.5 mg/dL0.2-1.0Nucleated RBC Relative Count (auto)August 10, 2025 2:30pmOctober 2024 2:30pm0.0 /100{WBC}Total ProteinDece2024 2:07pmDecember 2024 2:07pm7.4 g/dL6.4-8.2Red Cell Distribution WidthAugust 10, 2025 2:30pmOctober 2024 2:30pm14.4 %11.5-15.0Mean Platelet Volume August 10, 2025 2:30pmOctober 2024 2:30pm10.8 fL9.0-12.7Differential CommentOct2024 2:30pmOctober 2024 2:30pmAutoImmature Granulocyte # (Auto)August 10, 2025 2:30pmOct2024 2:30pm<0.03 k/uL<0.10Immature Granulocyte % (Auto)August 10, 2025 2:30pmOctober 2024 2:30pm0.2 % Vital Signs Vital Reading Result Reference Range Collection Date/Time Heart Rate 60 /min 60-100 September 02, 2 025 10:54am BP Systolic 149 mm[Hg] 100-140 September 02, 2 025 10:54am BP Diastolic 70 mm[Hg] 60-100 September 02, 2 025 10:54am Height 60 [in_i] September 23, 2025 1:13ugCwslvg62.62 kgSeptember 23, 2025 1:08pmHeart Rate55 /ggx25-310GjbuifytSeptember 23, 2025 1:08pmRespiratory rate18 /jif41-13ApxlqdcpSeptember 23, 2025 1:08pmOxygen saturation by Pulse oaztimyq94 %95-100September 23, 2025 1:08pmBP Dinkhypv660 mm[Hg]100-140September 23, 2025 1:08pmBP Jmmfnsems61 mm[Hg]60-100September 23, 2025 1:08pmBMI (Body Mass Index)20.5 kg/j6BxoycvnhSeptember 23, 2025 1:08pmHeart Rate62 /zji83-304Ajdralip 15th, 2025 2:51pmBP Umsgxhhd515 mm[Hg]100-140December 2024 2:51pmBP Nfjrasdys48 mm[Hg]60-100December 2024 2:51pm Advance Directives Advance Directive Response Recorded Date/ Time Advance Directives No September 12:15pm Insurance Providers Guarantor Yary Kb Forresters Address [address] [address]Htbnwlj Info.Home Phone: Coverage Status Update:2025 Payer Group Member ID Coverage Type Subscriber Relationship to Subscriber Effective Date Expiration Date [facility]: [id number] A Sparks Id: [id number] [address] [address] Home Phone: Email: Declined [phone] [id number] A Schuler Id: [id number] [address] [address] Home Phone: Email: Declined [phone] [employer] [id number] A Schuler Id: [id number] [address] [address] Home Phone: Email: Declined [phone] Encounters Encounter Location(s) Arrival/Admit Date Discharge/Departure Date Discharge/Departure Disposition Provider(s) Non-patient / Non-visit -[facility] O ctober 2024 3:30pm Katlin Pfeiffer-patient / [facility] September 02, 2025 9:28amLindeniz Bowman , MDDeparted Physician/Provider [facility] 2024 1:32pmDischarged to home care or self care (routine discharge)Romel Arroyo-patient / [facility]lkqba[facility] 2024 2:07pm Romel Arroyo MDDeparted Physician/Provider Office Visit-[facility] 20[facility] 3:17pmDischarged to home care or self care (routine discharge)Romel Dodge MANAGING CONSULTANT CLINICAL PROFESSOR Recent Diagnosis Onset Date Admit Date Agaton coronary artery jacky cium score between 100 and 199 Unknown September 23, 2025 1:00pm Aortic valve sclerosis Unknown September 23, 2025 1:00pm Atypical chest pain Unknown September 1:00pm Cardiac murmur Unknown September 23, 2 025 1:00pm Abnormal MRI, lumbar spine Unknown Decem 2024 2:23pm Benign essential tremor Unknown October 18, 2025 2:23pm Low back pain Unknown October 18, 2 025 2:23pm Polyneuropathy Unknown October 18, 2 025 2:23pm Vertigo Unknown October 18, 2 025 2:23pm Assessments Author Terry Hardwick [facility] 2024 1:32pm1. Source of cardiac murmur is aortic sclerosis without valvular aortic stenosis as documented by transthoracic echocardiography 2. Low risk pharmacologic stress test with nuclear myocardial perfusion SPECT imaging. 3. Mildly elevated coronary calcium score. Total Agatston score 198. Implies presence of mild nonobstructive coronary plaque. 4. Zio patch monitoring for 14 days showing no evidence of significant cardiac arrhythmia Plan of Treatment Author Terry Hardwick [facility] 2024 1:33pm 1. Maintain aspirin 81 mg daily 2. Check fasting lipid profile with CMP BNP LP(a) ApoB hs-CRP. If evidence of atherogenic type a lipid pattern would at that point suggest treatment of mild coronary plaque noted on coronary artery calcium scoring with low-dose statin therapy. If none atherogenic type B pattern is identified would not recommend statin therapy and would recommend staying with low-dose aspirin monotherapy for risk factor modification. 3. Return to clinic to discuss laboratory evaluation in 6 weeks or sooner if clinically indicated Author Astrid Merrill [facility] 2024 3:15pm 74 year old female patient with tremor [...] of fatigue. She is currently following with [facility]. She was started on risperdone by [...] notes that she was initially seen in [place] and then transferred to [facility]. She is agreeable to pain mgt [...] an infiltrative process or red marrow conversion. She is following with hematology at [facility]. She had a holter monitor for 7 days. Due to heart rate dropping in the night. This was noticed when she was hospitalized for GI issues. She had further tests and is continuing with some workup. She needs to repeat her stress test in 6 months.?? . . . Plan: Continue with pain management for back pain and review of recent MRI of cervical or thoracic spine, she is unsure Will sent to hematology for MRI possibility [...] there are any new issues or questions. Future Tests Future scheduled test information is unavailable Pending Tests Pending diagnostic test information is unavailable Future Visits Future appointment information is unavailable Future Procedures Future procedure information is unavailable Future Medications Future medication information is unavailable Patient Instructions Patient instructions are unavailable
--- OUTSIDE RECORDS SUMMARY | 2025-10-20 14:40 | XMS_ITS | Encounter Summary ---
Author Organization [facility] Address [address] [place] [address] Care Team Providers Care Title 1 Tutor Name Role Phone Cassie Tejada MD Primary Care Provider [phone] Astrid Person PA-C Unavailable [phone] Source Comments In the event this information is protected by the Federal Confidentiality of Alcohol and Drug AbusePatient Records regulations: The Federal rules restrict any use of the information to criminally investigate or prosecute any alcohol or drug abuse patient.[facility] Encounter Details DateTypeDepartmentCare Team (Latest Contact Info)Dxvphpmmiur83/17/2025 2:40 PM ESTVisit (SP) Office Hematology/Oncology [address] [place] [address] [place] [address] Nick Posada MD [address] [place] [address] [place] [address] Anemia, unspecified type (Primary Dx) Social History Tobacco UseTypesPacks/DayYears UsedDateSmoking Tobacco: NeverSmokeless Tobacco: Never Tobacco Cessation:Counseling Given: Not Answered Alcohol UseStandard Drinks/WeekCommentsYes0 (1 standard drink = 0.6 oz pure alcohol)sociallyArea Deprivation IndexAnswerDate RecordedNational Score (1-100), lower number is lower mvmi120908/10/2025State Score (1-10), lower number is lower azql650Data from: https://www.neighborhoodatlas.medicine.[facility]/. Last address used for [address] [facility]/10/2025CommentsNoSex and Gender InformationValueDate RecordedSex Assigned at BirthNot on fileLegal Sex Xrzqua0510/05/2012 10:12 AM ESTGender IdentityNot on fileSexual OrientationNot on filedocumented as of this encounter Last Filed Vital Signs Vital SignReadingTime TakenCommentsBlood Gzzehzia948/6110/20/2025 2:59 PM EST Exllq849310/20/2025 2:59 PM UQIBhkkvzpvfjh38.3 ??C (97.3 ??F)10/20/2025 2:59 PM ESTRespiratory Eoth281912/21/2024 2:59 PM ESTOxygen Laveghgtep78%10/20/2025 2:59 PM ESTInhaled Oxygen Concentration--Hjwiji68.6 kg (107 lb 2.3 oz)10/20/2025 2:59 PM ESTHeight--Body Mass Index20.2404 4:12 PM EDTdocumented in this encounter Functional Status * Are you deaf or do you have serious difficulty hearing?AnswerDate of VepwutzbbbKipegtRh50/05/2014 11:15 AM Kari Vega * Are you blind or do you have serious difficulty seeing, even when wearing glasses?AnswerDate of NaigdbjxsrCnqzdgMw61/05/2014 11:15 AM Kari Vega * Do you have serious difficulty walking or climbing stairs?AnswerDate of MiyftlasofOashvjOp68/05/2014 11:15 AM Kari Vega * Do you have difficulty dressing or bathing?AnswerDate of AssessmentAutrNo 07/09/2014 11:15 AM Kari Vega * Because of a physical, mental, or emotional condition, do you have difficulty doing errands alone such as visiting a doctor's office or shopping?AnswerDate of SkiaptebkgOibabkQw35/05/2014 11:15 AM Kari Vega documented as of this encounter Mental Status * Because of a physical, mental, or emotional condition, do you have serious difficulty concentrating, remembering, or making decisions?AnswerEntry Date VyuorwHl34/05/2014 11:15 AM Kari Vega documented in this encounter Patient Instructions * Patient Instructions* Nick Posada MD - 10/20/2025 3:14 PM EST Do mammogram next month as scheduled F/u in 6 months documented in this encounter Progress Notes * Nick Posada MD - 10/20/2025 2:40 PM EST PATIENT NAME: Yary Schuler CLINIC NO.: [id number] ATTENDING PHYSICIAN: Nick Posada MD DATE OF SERVICE: July 29, [address] Cassie Tejada ([facility]) [address] [place] [address] thank you for referring Yary Schuler for an opinion regarding Lung nodules . Some of the elements of this note have been copied from my previous progress note dated 07/29/25. All the information has been reviewed carefully. CHIEF COMPLAINT: Lung nodules HPI: Yary Schuler is a 74 year old year old female with PMH of essential tremors, Breast cancer in 2009 (She was treated with lumpectomy and sentinel node biopsy followed by adjuvant XRT and adjuvant endocrine therapy). Doing physical therapy. No smoking No alcohol. C/o pain in the back. No lung nodule on CT coronaries on 07/07/25. Had mammogram last year at [facility]. Due in July. Doing well No major complaints C/o fatigue MRI lumbar spine (04/26/25)-diffusely diminished marrow signal slightly heterogeneous raising the possibility of infiltrative marrow process 10/20/25: - Due for mammo in Nov 2025 - C/o fatigue - No other complaints Current Outpatient Medications Medication Sig multivit-minerals/folic acid (ONE-A-DAY WOMEN'S 50 PLUS PO) Take by mouth. cyanocobalamin, vitamin B-12, (VITAMIN B-12 PO) Take by mouth. Aspirin 81 mg tab Take 81 mg by mouth. fluticasone propionate (FLONASE NASAL) Use in the nose. fexofenadine HCl (TRICIA ORAL) Take by mouth. primidone (MYSOLINE) 50 mg tablet Take 2 tablets at bedtime propranolol (INDERAL) 80 mg tablet Take 80 mg by mouth twice daily. CALCIUM CARBONATE/VITAMIN D3 (CALCIUM + D ORAL) Take 600 mg by mouth once daily. VITAMIN B COMPLEX (B-COMPLEX ORAL) Take by mouth once daily. No current facility-administered medications for this visit. Allergies Allergen Reactions Ibandronate Unknown Primidone Unknown PAST MEDICAL HISTORY Diagnosis Date Benign tumor of adrenal gland Breast cancer (HCC) left breast Cerebral embolism with cerebral infarction (HCC) Depression Insomnia Lung abscess (HCC) Vitamin D deficiency PAST SURGICAL HISTORY Procedure Laterality Date LUMPECTOMY/RADIOTHERAPY DIAG MAMM/A10 left breast PAST SURGICAL HISTORY OF 2010 bladder lift FAMILY HISTORY Problem Relation Age of Onset Stroke Mother other (h/o tremor following anuersym rupture[other]) Mother Aneurysm Mother Dementia Mother Diabetes Maternal Grandmother Social History[1] REVIEW OF SYSTEMS GENERAL: No weight loss, malaise or fevers. No night sweats. HEENT: Negative for headaches, No changes in hearing or vision, no nose bleeds or other nasal problems. RESPIRATORY: Negative for cough, wheezing and shortness of breath CARDIOVASCULAR: Negative for chest pain, leg swelling and palpitations GI: Negative for abdominal discomfort, blood in stools or black stools and change in bowel habits : Negative for dysuria, frequency and incontinence MUSCULOSKELETAL: Negative for joint pain or swelling, back pain, and muscle pain. SKIN: Negative for lesions, rash, and itching. HEMATOLOGY/LYMPHOLOGY Negative for prolonged bleeding, bruising easily, and swollen nodes. NEURO: Negative for numbness or tingling of hands/feet. No weakness. PHYSICAL EXAMINATION: There were no vitals taken for this visit. There were no vitals taken for this visit. Last 3 Encounter Wt Readings: Date: Wt: 02/29/2016 63.5 kg (140 lb) 07/09/2014 63.3 kg (139 lb 9.6 oz) 05/29/2013 60.4 kg (133 lb 3.2 oz) General appearance:ECOG PERFORMANCE STATUS: 0- Fully active, able to carry on all pre-disease performance w/o restriction. Patient in NAD. Skin: Skin color, texture, turgor normal. No rashes or lesions. Eyes: Anicteric sclera. Pupils are equally round and reactive to light. Extraocular movements are intact. Breast: No palpable breast masses. No nipple change or discharge. Lymph Nodes: No cervical, supraclavicular, axillary or inguinal adenopathy. Oropharynx: Lips, mucosa, and tongue normal. Back: No pain to percussion. Negative SLR test Lungs clear to auscultation, No wheezing or rhonchi Heart: RRR without murmur, gallop, or rubs. Abdomen soft, non-tender. No masses, organomegaly Extremities: No deformities. No edema Neuro: Gait and speech normal. Reflexes normal and symmetric. Muscular strength intact. Sensation grossly intact. Rectal: Deferred : Deferred LABS: Glucose (mg/dL) Date Value 08/10/2025 89 Potassium (mmol/L) Date Value 08/10/2025 3.6 Sodium (mmol/L) Date Value 08/10/2025 145 Chloride (mmol/L) Date Value 08/10/2025 110 CO2 (mmol/L) Date Value 08/10/2025 22 Creatinine (mg/dL) Date Value 08/10/2025 1.21 BUN (mg/dL) Date Value 08/10/2025 30 Anion Gap (mmol/L) Date Value 08/10/2025 13 Calcium, Total (mg/dL) Date Value 08/10/2025 9.4 Protein, Total (g/dL) Date Value 08/10/2025 7.2 08/10/2025 7.0 Albumin (g/dL) Date Value 08/10/2025 4.2 Bilirubin, Total (mg/dL) Date Value 08/10/2025 0.2 Alkaline Phosphatase (U/L) Date Value 08/10/2025 62 AST (U/L) Date Value 08/10/2025 22 ALT (U/L) Date Value 08/10/2025 16 WBC Date Value Ref Range Status 08/10/2025 6.11 3.70 - 11.00 k/uL Final RBC Date Value Ref Range Status 08/10/2025 3.31 (L) 3.90 - 5.20 m/uL Final Hemoglobin Date Value Ref Range Status 08/10/2025 10.9 (L) 11.5 - 15.5 g/dL Final Hematocrit Date Value Ref Range Status 08/10/2025 33.4 (L) 36.0 - 46.0 % Final MCV Date Value Ref Range Status 08/10/2025 100.9 (H) 80.0 - 100.0 fL Final MCH Date Value Ref Range Status 08/10/2025 32.9 26.0 - 34.0 pg Final MCHC Date Value Ref Range Status 08/10/2025 32.6 30.5 - 36.0 g/dL Final RDW-CV Date Value Ref Range Status 08/10/2025 14.4 11.5 - 15.0 % Final Platelet Count Date Value Ref Range Status 08/10/2025 188 150 - 400 k/uL Final MPV Date Value Ref Range Status 08/10/2025 10.8 9.0 - 12.7 fL Final Abs Neut Date Value Ref Range Status 08/10/2025 2.29 1.45 - 7.50 k/uL Final Lymphocytes % Date Value Ref Range Status 08/10/2025 46.5 % Final Abs Lymph Date Value Ref Range Status 08/10/2025 2.84 1.00 - 4.00 k/uL Final Monocytes % Date Value Ref Range Status 08/10/2025 10.5 % Final Abs Rock Date Value Ref Range Status 08/10/2025 0.64 <0.87 k/uL Final Abs Eosin Date Value Ref Range Status 08/10/2025 0.30 <0.46 k/uL Final Basophils % Date Value Ref Range Status 08/10/2025 0.5 % Final Abs Baso Date Value Ref Range Status 08/10/2025 0.03 <0.11 k/uL Final PATH: IMAGING: ASSESSMENT AND PLAN: Yary Schuler is a 74 year old year old female referred to us for anemia and abnormal MRI of the lumbar spine.. H/o essential tremors, Breast cancer in 2009 (She was treated with lumpectomy and sentinel node biopsy followed by adjuvant XRT and adjuvant endocrine therapy). - MRI lumbar spine (04/26/25)-diffusely diminished marrow signal slightly heterogeneous raising the possibility of infiltrative marrow process - CT coronaries on 07/07/2025 showed no evidence of lung nodule or lymphadenopathy PLAN: 1. Anemia, unspecified type - ICD9: 285.9, ICD10: D64.9 (primary diagnosis) - Doing well - CBC today showed stable hgb 10.4 - Mild anemia likely secondary to CKD - Normal ferritin iron studies B12 folate haptoglobin myeloma panel TSH CA 15-3 - Continue MVT supplements. - Due for mammogram in Nov 2025 - All her questions answered in detail - F/u in [address] Cassie Tejdaa ([facility]) [address] [place] [address] [address] [facility] [address] thank you for allowing me to participate in Yary Schuler care, if there are any questions or concerns please do not hesitate to contact me at the number below. I spent a total of 20 minutes on the date of the service which included preparing to see the patient, ywoy-rz-kwpj patient care, completing clinical documentation, obtaining and/or reviewing separately obtained history, performing a medically appropriate examination, counseling and educating the pat ient/family/caregiver, ordering medications, tests, or procedures, communicating with other HCPs (not separately reported), independently interpreting results (not separately reported), communicatingresults to the patient/family/caregiver, and care coordination (not separately reported). Nick Posada MD. Hematology/Medical Oncology [facility] [phone] CC: [1] Social History Tobacco Use Smoking status: Never Smokeless tobacco: Never Vaping Use Vaping status: Never Used Substance Use Topics Alcohol use: Yes Comment: socially documented in this encounter Plan of Treatment DateTypeDepartmentCare Team (Latest Contact Info)Nvakzuozfsp70/17/2026 2:15 PM EDTOffice Visit [facility] [address] [place] [address] [place] [address] 6 month follow up lab04/20/2026 2:30 PM EDTVisit (SP) Office Hematology/Oncology [address] [place] [address] [place] [address] Angelita Barrera APRN.SAT INSTRUCTOR [address] [place] [address] 6 month follow up labNameTypePriorityAssociated DiagnosesOrder ScheduleCOMPLETE BLOOD COUNT AND DIFFERENTIALLabRoutine Anemia, unspecified type Expected: 04/20/2026 (Approximate), Expires: 07/20/2026OMPREHENSIVE METABOLIC PANELLabRoutine Anemia, unspecified type Expected: 04/20/2026 (Approximate), Expires: 07/20/2026FERRITINLabRoutine Anemia, unspecified type Expected: 04/20/2026 (Approximate), Expires: 07/20/2026IRON AND TIBCLabRoutine Anemia, unspecified type Expected: 04/20/2026 (Approximate), Expires: 07/20/2026documented as of this encounter Visit Diagnoses Diagnosis Anemia, unspecified type- Primary documented in this encounter Care Teams Team MemberRelationshipSpecialtyStart DateEnd Date Cassie Tejada MD [address] [place] [address] PCP - GeneralFamily Medicine01/08/12 Astrid Person PA-C [address] [place] [address] Neurology07/27/25documented as of this encounter
--- OUTSIDE RECORDS SUMMARY | 2025-10-25 12:22 | XMS_ITS | Encounter Summary ---
Author Organization [facility] Address [address] [place] [address] Care Team Providers Care Lunchroom Supervisor Name Role Phone Cassie Tejada MD Primary Care Provider [phone] Astrid Person PA-C Unavailable [phone] Source Comments In the event this information is protected by the Federal Confidentiality of Alcohol and Drug AbusePatient Records regulations: The Federal rules restrict any use of the information to criminally investigate or prosecute any alcohol or drug abuse patient.[facility] Encounter Details DateTypeDepartmentCare Team (Latest Contact Info)Jjrtrfvohjf75/17/2025Travel Social History Tobacco UseTypesPacks/DayYears UsedDateSmoking Tobacco: NeverSmokeless Tobacco: NeverAlcohol UseStandard Drinks/WeekCommentsYes0 (1 standard drink = 0.6 oz pure alcohol)sociallyArea Deprivation IndexAnswerDate RecordedNational Score (1-100), lower number is lower oety442008/10/2025State Score (1-10), lower number is lower qwej174Data from: https://www.neighborhoodatlas.medicine.[facility].edu/. Last address used for [address] [facility]08/10/2025CommentsNoSex and Gender InformationValueDate RecordedSex Assigned at BirthNot on fileLegal Sex Pwiptt7710/05/2012 10:12 AM ESTGender IdentityNot on fileSexual OrientationNot on filedocumented as of this encounter Functional Status * Are you deaf or do you have serious difficulty hearing?AnswerDate of VwqcekfsvfVhdlwpPv59/05/2014 11:15 AM Kari Vega * Are you blind or do you have serious difficulty seeing, even when wearing glasses?AnswerDate of YgmkhklsuyPgtaydXb81/05/2014 11:15 AM Kari Vega * Do you have serious difficulty walking or climbing stairs?AnswerDate of JuvdojwaliUzasmqKw28/05/2014 11:15 AM Kari Vega * Do you have difficulty dressing or bathing?AnswerDate of AssessmentAuthorNo 07/09/2014 11:15 AM Kari Vega * Because of a physical, mental, or emotional condition, do you have difficulty doing errands alone such as visiting a doctor's office or shopping?AnswerDate of AmfszmqkmsDptvaeXo31/05/2014 11:15 AM Kari Vega documented as of this encounter Mental Status * Because of a physical, mental, or emotional condition, do you have serious difficulty concentrating, remembering, or making decisions?AnswerEntry Date JglejrFf12/05/2014 11:15 AM Kari Vega documented in this encounter Plan of Treatment DateTypeDepartmentCare Team (Latest Contact Info)Nrvuvekbcyu95/17/2026 2:15 PM EDTOffice Visit [facility] [address] [facility] [place] [address] 6 month follow up lab04/20/2026 2:30 PM EDTVisit (SP) Office Hematology/Oncology [address] [place] [address] Angelita Barrera APRN.[employer]ING PRESS OPERATOR [address] [place] [address] 6 month follow up labdocumented as of this encounter Visit Diagnoses Not on filedocumented in this encounter Care Teams Team MemberRelationshipSpecialtyStart DateEnd Date Cassie Tejada MD [address] [place] [address] PCP - GeneralFamily Medicine01/08/12 Astrid Person PA-C [address] [place] [address] Neurology07/27/25documented as of this encounter
--- OUTSIDE RECORDS SUMMARY | 2025-10-25 12:22 | XMS_ITS | Encounter Summary ---
Author Organization [facility] Address [address] [place] [address] Care Team Providers Care Sewing Machine Maintenance Mechanic Name Role Phone Cassie Tejada MD Primary Care Provider [phone] Astrid Person PA-C Unavailable [phone] Source Comments In the event this information is protected by the Federal Confidentiality of Alcohol and Drug AbusePatient Records regulations: The Federal rules restrict any use of the information to criminally investigate or prosecute any alcohol or drug abuse patient.[facility] Reason for Visit * ReasonCommentsLab Orders Encounter Details DateTypeDepartmentCare Team (Latest Contact Info)Bcjienhfszc85/08/2025Telephone Hematology/Oncology [address] [place] [address] [place] [address] Nick Posada MD [address] [place] [address] [place] [address] Lab Orders Social History Tobacco UseTypesPacks/DayYears UsedDateSmoking Tobacco: NeverSmokeless Tobacco: NeverAlcohol UseStandard Drinks/WeekCommentsYes0 (1 standard drink = 0.6 oz pure alcohol)sociallyArea Deprivation IndexAnswerDate RecordedNational Score (1-100), lower number is lower wgcg675908/10/2025State Score (1-10), lower number is lower rwqu844Data from: https://www.neighborhoodatlas.[facility]/. Last address used for lfkws[address] [facility]/10/2025CommentsNoSex and Gender InformationValueDate RecordedSex Assigned at BirthNot on fileLegal Sex Vzrfqf2710/05/2012 10:12 AM ESTGender IdentityNot on fileSexual OrientationNot on filedocumented as of this encounter Functional Status * Are you deaf or do you have serious difficulty hearing?AnswerDate of EdahhmppdmLbtaokQs22/05/2014 11:15 AM Kari Vega * Are you blind or do you have serious difficulty seeing, even when wearing glasses?AnswerDate of NnmrqhgmpnMdkbgzHz76/05/2014 11:15 AM Kari Vega * Do you have serious difficulty walking or climbing stairs?AnswerDate of VffrivawftVidinyYd44/05/2014 11:15 AM Kari Vega * Do you have difficulty dressing or bathing?AnswerDate of AssessmentAuthorNo 07/09/2014 11:15 AM Kari Vega * Because of a physical, mental, or emotional condition, do you have difficulty doing errands alone such as visiting a doctor's office or shopping?AnswerDate of SwiibwzmtrKbggkbZl89/05/2014 11:15 AM Kari Vega documented as of this encounter Mental Status * Because of a physical, mental, or emotional condition, do you have serious difficulty concentrating, remembering, or making decisions?AnswerEntry Date JihzaaHj35/05/2014 11:15 AM Kari Vega documented in this encounter Miscellaneous Notes * Telephone Encounter - Candace Valdez MA - 10/11/2025 2:54 PM EST Patient coming in Saturday10/20/25 for follow up anemia. Please add lab orders. Thanks. Candace Valdez MA documented in this encounter Plan of Treatment DateTypeDepartmentCare Team (Latest Contact Info)Joeoqirtlra86/17/2026 2:15 PM EDTOffice Visit [facility] [address] [place] [address] 6 month follow up lab04/20/2026 2:30 PM EDTVisit (SP) Office Hematology/Oncology [address] [place] [address] Angelita Barrera APRN.EXECUTIVE SALES MANAGER [address] [place] [address] 6 month follow up labdocumented as of this encounter Results * (ABNORMAL) COMPREHENSIVE METABOLIC PANEL (10/20/2025 2:56 PM EST)Component ValueRef RangeTest MethodAnalysis TimePerformed AtPathologist Signature Protein, Total6.2(L)6.3 - 8.0 g/dL10/20/2025 3:38 PM [facility] LABAlbumin3.93.9 - 4.9 g/dL10/20/2025 3:38 PM [facility] LABCalcium, Total9.58.5 - 10.2 mg/dL10/20/2025 3:38 PM [facility] LABBilirubin, Total0.30.2 - 1.3 mg/dL 10/20/2025 3:38 PM [facility] LABAlkaline Ozvhyfrgcni7479 - 123 U/L112/21/2024 3:38 PM [facility] RVMGEH0278 - 35 U/L112/21/2024 3:38 PM [facility] BZKZKZ2836 - 35 U/L112/21/2024 3:38 PM [facility] DSZZzdgjof5566 - 99 mg/dL10/20/2025 3:38 PM [facility] LABComment: The [place] Diabetes Association (ADA) provides guidance for cutoff [...] Standards of Medical Care in Diabetes 2016, [place] [employer]. Diabetes Care. 2016.39(Suppl 1). BUN30(H)7 - 21 mg/dL10/20/2025 3:38 PM [facility] LAB Creatinine1.15(H)0.58 - 0.96 mg/dL10/20/2025 3:38 PM [facility] QQVWuxqhd590999 - 144 mmol/L112/21/2024 3:38 PM [facility] LABPotassium4.03.7 - 5.1 mmol/L112/21/2024 3:38 PM EST [facility] DGMKszdviuo592(H)98 - 107 mmol/L112/21/2024 3:38 PM [facility] ZBDML41762 - 30 mmol/L112/21/2024 3:38 PM [facility] LABAnion Gap88 - 15 mmol/L 10/20/2025 3:38 PM [facility] LABEstimated Glomerular Filtration Rate49(L)>=60 mL/min/1.73m 10/20/2025 3:38 PM [facility] LABComment:Estimated Glomerular Filtration Rate (eGFR) is [...] VolumeCollection TimeReceived TimeBloodBLOOD SPECIMEN / UnknownVenipuncture / Oytdqvk6210/20/2025 2:56 PM EST10/20/2025 2:56 PM EST Narrative Authorizing ProviderResult TypeResult StatusAdars Swetha MDLABORATORY Final ResultPerforming OrganizationAddressCity/State/ZIP CodePhone Number [facility] [address] [place] [address] * (ABNORMAL) COMPLETE BLOOD COUNT AND DIFFERENTIAL (10/20/2025 2:56 PM EST) ComponentValueRef RangeTest MethodAnalysis TimePerformed AtPathologist SignatureWBC6.683.70 - 11.00 k/uL10/20/2025 3:02 PM [facility] LABRBC3.04(L)3.90 - 5.20 m/uL10/20/2025 3:02 PM [facility] JNWDevasufvsb30.4(L)11.5 - 15.5 g/dL10/20/2025 3:02 PM [facility] ZBMSqoarrizgw18.0(L)36.0 - 46.0 % 10/20/2025 3:02 PM [facility] IFXFXD244.0(H)80.0 - 100.0 fL10/20/2025 3:02 PM [facility] OPKINS77.2(H) 26.0 - 34.0 pg10/20/2025 3:02 PM [facility] LABMCHC 33.530.5 - 36.0 g/dL10/20/2025 3:02 PM [facility] LABRDW-CV14.511.5 - 15.0 %10/20/2025 3:02 PM [facility] LABPlatelet Aanyz334365 - 400 k/uL10/20/2025 3:02 PM [facility] FPOOUY13.99.0 - 12.7 fL10/20/2025 3:02 PM [facility] LABNeutrophils %44.5%10/20/2025 3:02 PM [facility] LABAbs Neut2.971.45 - 7.50 k/uL10/20/2025 3:02 PM [facility] LABLymphocytes %41.6%10/20/2025 3:02 PM [facility] LABAbs Lymph2.781.00 - 4.00 k/uL10/20/2025 3:02 PM [facility] LABMonocytes %8.4%10/20/2025 3:02 PM [facility] LABAbs Mono0.56<0.87 k/uL10/20/2025 3:02 PM [facility] LABEosinophils %4.5%10/20/2025 3:02 PM [facility] LABAbs Eosin0.30<0.46 k/uL 10/20/2025 3:02 PM [facility] LABBasophils %0.7% 10/20/2025 3:02 PM [facility] LABAbs Baso0.05<0.11 k/uL10/20/2025 3:02 PM [facility] LABImmature Granulocytes %0.3%10/20/2025 3:02 PM [facility] LAB Abs Immature Gran<0.03<0.10 k/uL10/20/2025 3:02 PM [facility] LABNRBC0.0/100 WBC10/20/2025 3:02 PM [facility] LABAbsolute nRBC<0.01<0.01 k/uL10/20/2025 3:02 PM [facility] LABDiff QqrlIkhn95/17/2025 3:02 PM [facility] LABSpecimen (Source)Anatomical Location / Laterality Collection Method / VolumeCollection TimeReceived TimeBloodBLOOD SPECIMEN / UnknownVenipuncture / Oazjyeu1610/20/2025 2:56 PM EST10/20/2025 2:56 PM EST Narrative Authorizing ProviderResult TypeResult StatusAdarslucie Posada MDLABORATORY Final ResultPerforming OrganizationAddressCity/State/ZIP CodePhone Number [facility] [address] [place] [address] documented in this encounter Visit Diagnoses Diagnosis Anemia, unspecified type- Primary documented in this encounter Care Teams Team MemberRelationshipSpecialtyStart DateEnd Date Cassie Tejada MD [address] [place] [phone] PCP - GeneralFamily Medicine01/08/12 Astrid Person PA-C [id number] [place] [address] Neurology07/27/25documented as of this encounter
--- OUTSIDE RECORDS SUMMARY | 2025-10-25 12:22 | XMS_ITS | Clinical Summary ---
Author Organization [facility] Address [address] [place] [address] Phone Care Team Providers Care Dye Weigher Name Role Phone Unavailable Primary Care Provider Unavailabl e Social History Tobacco UseTypesPacks/DayYears UsedDateSmoking Tobacco: Never Assessed CommentsUnknownSex and Gender InformationValueDate RecordedSex Assigned at Not on fileLegal PjyEjkwyx25/26/2022 12:07 AM ESTGender IdentityNot on file Sexual OrientationNot on file Plan of Treatment Not on file
--- OUTSIDE RECORDS SUMMARY | 2025-10-25 12:22 | XMS_ITS | Clinical Summary ---
Author Organization [facility] Address [address] [place] [address] Care Team Providers Care Relay Record Clerk Name Role Phone Cassie Tejada MD Primary Care Provider [phone] Allergies No known active allergies Medications MedicationSigDispense [...] Last Filed Vital Signs Vital SignReadingTime TakenCommentsBlood Onutgqmb192/7205 1:41 PM EDT Pulse--Temperature--Respiratory Rate--Oxygen Saturation--Inhaled Oxygen Concentration--Dyfpya60 kg (108 lb)03/16/2025 1:41 PM DXCIzyown614.4 cm (5') 03/16/2025 1:41 PM EDTBody Mass Index21.0903/16/2025 1:41 PM EDT Plan [place] Treatment [place] [address] Care Teams Team MemberRelationshipSpecialtyStart [place] [address] [place] [phone] PCP - GeneralFamily Medicine03/16/25
--- OUTSIDE RECORDS SUMMARY | 2025-10-25 12:22 | XMS_ITS | Clinical Summary ---
Author Organization [facility] Address [address] [place] [address] Care Team Providers Care Generator Switchboard Operator Name Role Phone Cassie Tejada MD Primary Care Provider [phone] Astrid Person PA-C Unavailable [phone] Allergies Active AllergyReactionsCriticalityNoted SxqsFkfkcryrJbisgsqzwbtLazotnm82/25/2025 WnolezwjjCjwoasc72/25/2025 Medications MedicationSigDispense QuantityRefillsLast FilledStart DateEnd DateStatus propranolol [...] fexofenadine HCl (TRICIA ORAL) Take by mouth.Active meloxicam (MOBIC) 7.5 mg tablet once daily as needed.5Active topiramate (TOPAMAX) 100 mg tablet two times a day.04/13/2020Active cholecalciferol, vitamin D3, (VITAMIN D3 PO) Take by mouth.Active Active Problems ProblemNoted DateDiagnosed DateHot cgkxnnv8507/09/2014reast gemedv3105/29/2013 Encounters DateTypeDepartmentCare JkqfBdlbntduoii75/17/2025 2:40 PM ESTVisit (SP) Office Hematology/Oncology [address] [place] [address] Nick Posada MD Anemia, unspecified type (Primary Dx)10/20/20256690Giyezi30/08/2025Telephone Hematology/Oncology [address] [place] [address] Nick Posada MD Lab Vbrhzg8207/29/2025 4:00 PM EDTVisit (SP) Office Hematology/Oncology [address] [place] [address] Nick Posada MD Anemia, unspecified type (Primary Dx); Other abnormal tumor guadhcn6007/29/20258428Rdjuun33/23/2025H&P External-NonC Provider, SANTOSH Nam 07/27/2025bstract Hematology/Oncology [address] [place] [address] Aura Brooks MA from Last 3 Months Family History Medical HistoryRelationCommentsDiabetesMaternal GrandmotherAneurysmMother DementiaMotherStrokeMotherh/o tremor following anuersym rupture[other]Mother RelationStatusCommentsMaternal GrandmotherMotherDeceased Social History Tobacco UseTypesPacks/DayYears UsedDateSmoking Tobacco: NeverSmokeless Tobacco: Never Tobacco Cessation:Counseling Given: Not Answered Alcohol UseStandard Drinks/WeekCommentsYes0 (1 standard drink = 0.6 oz pure alcohol)sociallyArea Deprivation IndexAnswerDate RecordedNational Score (1-100), lower number is lower kadv200708/10/2025State Score (1-10), lower number is lower osdz374Data from: https://www.neighborhoodatlas.medicine.[facility].edu/. Last address used for fhunaktrqbi[address]08/10/2025CommentsNoSex and Gender InformationValueDate RecordedSex Assigned at BirthNot on fileLegal NbtCujtss19/02/2012 10:12 AM ESTGender IdentityNot on fileSexual OrientationNot on file Last Filed Vital Signs Vital SignReadingTime TakenCommentsBlood Udswvnvt003/6110/20/2025 2:59 PM EST Mstno942810/20/2025 2:59 PM GGFVohjgsippoy74.3 ??C (97.3 ??F)10/20/2025 2:59 PM ESTRespiratory Hmbs932112/21/2024 2:59 PM ESTOxygen Rzrihdffen30%10/20/2025 2:59 PM ESTInhaled Oxygen Concentration--Hncucl94.6 kg (107 lb 2.3 oz)10/20/2025 2:59 PM CCVOlgfen857.9 cm (5' 1 )02/29/2016 4:12 PM EDTBody Mass Index20.24 02/29/2016 4:12 PM EDT Plan of Treatment DateTypeDepartmentCare Team (Latest Contact Info)Hxjicypfioe77/17/2026 2:15 PM EDTOffice Visit [facility] [address] [place] [address] [place], [place] [id number] 6 month follow up lab04/20/2026 2:30 PM EDTVisit (SP) Office Hematology/Oncology [address] [place] [address] [place] [address] Angelita Barrera, JAVIER.EVS ATTENDANT [address] [place] [address] [place] [address] 6 month follow up labHealth MaintenanceDue DateLast DoneCommentsAnxiety Yulxhjrsx66/20/1967Depression Tfnjzbonz32/20/1967Hepatitis C Tjqaiuahe11/20/1967 Bone Density Kssuseybg63/20/2014dvance Directive Ibzoairvob68/01/2025ovid-19 Vaccine ( season)5007/05/2024, 04/06/2022, 09/03/2021, Additional history existsDiabetes Ybwaayzod41, 08/10/2025, 03/26/2024, Additional history existsDTaP,Tdap,Td Vaccine (2 - Td or Tdap) 05/19/Pneumococcal Vaccine: 50+Eyaxupfey33/24/2023, 07/22/2022, 08/04/2020, Additional history existsRSV UfhvnscGfotkbvcn66/19/2024Shingrix FlvzkerDkbnqxmky33/03/2025, 07/23/2024Influenza HsizccnGjbdutifj37/08/2025, 07/05/2024, 07/12/2022, Additional history exists Procedures Procedure NamePriorityDate/TimeAssociated DiagnosisCommentsCOMPREHENSIVE METABOLIC WHCLJVfhdnkn02/17/2025 2:56 PM EST Anemia, unspecified type CBC + GSWTVzgxupi39/17/2025 2:56 PM EST Anemia, unspecified type PROTEIN ELECTROPHORESIS SERUM (P)Vlklqzi0108/10/2025 3:30 PM EDT Anemia, unspecified type PROTEIN, TOTAL (FOR SEPG)Phrgeoz4808/10/2025 3:30 PM EDT Anemia, unspecified type TSH ZUCXfvteuk91/07/2025 3:30 PM EDT Anemia, unspecified type HAPTOGLOBIN HKVHzpzakt05/07/2025 3:30 PM EDT Anemia, unspecified type CA 15-3 GBXWdrfjgi53/07/2025 3:30 PM EDT Anemia, unspecified type Other abnormal tumor markers KAPPA/LOPEZ,FREE,LEDGwlwhyu93/07/2025 3:30 PM EDT Anemia, unspecified type IMMUNOFIXATION SCREEN, ZGHEIRulchku58/07/2025 3:30 PM EDT Anemia, unspecified type PROTEIN ELECTROPHORESIS SERUM W/BRDGOHAjtzvgt63/07/2025 3:30 PM EDT Anemia, unspecified type FOLATE ZSACKBjonmss36/07/2025 3:30 PM EDT Anemia, unspecified type VITAMIN B12 TTYJRQejehtl79/07/2025 3:30 PM EDT Anemia, unspecified type IRON + OFIZRowkkdj16/07/2025 3:30 PM EDT Anemia, unspecified type FERRITIN BGZQvtzbna28/07/2025 3:30 PM EDT Anemia, unspecified type COMPREHENSIVE METABOLIC ZDGTQUaczraj75/07/2025 3:30 PM EDT Anemia, unspecified type CBC + FSZEHvvarvr42/07/2025 3:30 PM EDT Anemia, unspecified type EXTERNAL PAHPTLD6307/27/2025 1:54 PM EDT EXTERNAL HMKDBAU8107/27/2025 1:54 PM EDT EXTERNAL MNBWWMG7807/27/2025 1:54 PM EDT EXTERNAL OYZEUEJ1707/27/2025 1:54 PM EDT EXTERNAL LAB07/27/2025 1:54 PM EDT EXTERNAL LAB07/27/2025 1:54 PM EDT from Last 3 Months Results * (ABNORMAL) COMPREHENSIVE METABOLIC PANEL (10/20/2025 2:56 PM EST) Only the most recent of2 resultswithin the time period is included. ComponentValueRef RangeTest MethodAnalysis TimePerformed AtPathologist Signature Protein, Total6.2(L)6.3 - 8.0 g/dL10/20/2025 3:38 PM ESTNOR[facility] LABAlbumin3.93.9 - 4.9 g/dL10/20/2025 3:38 PM ESTNORTHCOAST [facility] LABCalcium, Total9.58.5 - 10.2 mg/dL10/20/2025 3:38 PM [facility] LABBilirubin, Total0.30.2 - 1.3 mg/dL 10/20/2025 3:38 PM [facility] LABAlkaline Phosphatase 5334 - 123 U/L112/21/2024 3:38 PM [facility] PDFKIR93 10 - 35 U/L112/21/2024 3:38 PM [facility] TLIMSB3434 - 35 U/L112/21/2024 3:38 PM [facility] IMIZppcatu4782 - 99 mg/dL10/20/2025 3:38 PM [facility] LABComment: The [place] Diabetes Association (ADA) provides guidance for cutoff [...] Standards of Medical Care in Diabetes 2016, [place] Diabetes Association. Diabetes Care. 2016.39(Suppl 1). BUN30(H)7 - 21 mg/dL10/20/2025 3:38 PM [facility] LAB Creatinine1.15(H)0.58 - 0.96 mg/dL10/20/2025 3:38 PM [facility] SFVXfdpdy797335 - 144 mmol/L112/21/2024 3:38 PM [facility] LABPotassium4.03.7 - 5.1 mmol/L112/21/2024 3:38 PM EST [facility] OICExebcgvj375(H)98 - 107 mmol/L112/21/2024 3:38 PM [facility] RFWAD55682 - 30 mmol/L112/21/2024 3:38 PM [facility] LABAnion Gap88 - 15 mmol/L 10/20/2025 3:38 PM [facility] LABEstimated Glomerular Filtration Rate49(L)>=60 mL/min/1.73m 10/20/2025 3:38 PM [facility] LABComment:Estimated Glomerular Filtration Rate (eGFR) [...] VolumeCollection TimeReceived TimeBloodBLOOD SPECIMEN / UnknownVenipuncture / Nrmdjte3810/20/2025 2:56 PM EST10/20/2025 2:56 PM EST Narrative Authorizing ProviderResult TypeResult StatusAdarsh Vennepureddy MDLABORATORY Final ResultPerforming OrganizationAddressCity/State/ZIP CodePhone Number [facility] [address] [place] [address] * (ABNORMAL) COMPLETE BLOOD COUNT AND DIFFERENTIAL (10/20/2025 2:56 PM EST) Only the most recent of2 resultswithin the time period is included. ComponentValueRef RangeTest MethodAnalysis TimePerformed AtPathologist Signature WBC6.683.70 - 11.00 k/uL10/20/2025 3:02 PM [facility] LABRBC3.04(L)3.90 - 5.20 m/uL10/20/2025 3:02 PM [facility] OXWQqidreexso42.4(L)11.5 - 15.5 g/dL10/20/2025 3:02 PM [facility] LOUEidnecsfuw47.0(L)36.0 - 46.0 %10/20/2025 3:[address] [facility] LVSKLM547.0(H)80.0 - 100.0 fL10/20/2025 3:02 PM [facility] OVBARB89.2(H)26.0 - 34.0 pg10/20/2025 3:02 PM [facility] HREEHCV96.530.5 - 36.0 g/dL 10/20/2025 3:02 PM [facility] LABRDW-CV14.511.5 - 15.0 %10/20/2025 3:02 PM [facility] LABPlatelet Iwjoj044 150 - 400 k/uL10/20/2025 3:02 PM [facility] QLWBSN74.9 9.0 - 12.7 fL10/20/2025 3:02 PM [facility] LAB Neutrophils %44.5%10/20/2025 3:02 PM [facility] LABAbs Neut2.971.45 - 7.50 k/uL10/20/2025 3:02 PM [facility] LABLymphocytes %41.6%10/20/2025 3:02 PM [facility] LABAbs Lymph2.781.00 - 4.00 k/uL10/20/2025 3:02 PM [facility] LABMonocytes %8.4%10/20/2025 3:02 PM [facility] LABAbs Mono0.56<0.87 k/uL10/20/2025 3:02 PM [facility] LABEosinophils %4.5%10/20/2025 3:02 PM [facility] LABAbs Eosin0.30<0.46 k/uL10/20/2025 3:02 PM [facility] LABBasophils %0.7%10/20/2025 3:02 PM [facility] LABAbs Baso0.05<0.11 k/uL10/20/2025 3:02 PM [facility] LABImmature Granulocytes %0.3%10/20/2025 3:02 PM [facility] LABAbs Immature Gran<0.03<0.10 k/uL10/20/2025 3:[address] [facility] LABNRBC0.0/100 WBC10/20/2025 3:[address] [facility] LABAbsolute nRBC<0.01<0.01 k/uL10/20/2025 3:02 PM [facility] LABDiff XqlqDbmd67/17/2025 3:[address] [facility] LABSpecimen (Source)Anatomical Location / LateralityCollection Method / VolumeCollection TimeReceived TimeBloodBLOOD SPECIMEN / UnknownVenipuncture / Jsuthcv6610/20/2025 2:56 PM EST10/20/2025 2:56 PM EST Narrative Authorizing ProviderResult TypeResult StatusAdalaverne Posada MDLABORATORY Final ResultPerforming OrganizationAddressCity/State/ZIP CodePhone Number [facility] [address] [place] [address] * IMMUNOFIXATION SCREEN, SERUM (08/10/2025 3:30 PM EDT)ComponentValueRef Range Test MethodAnalysis TimePerformed AtPathologist SignatureMPA ResultNo M protein is identified.No M protein is identified.08/12/2025 8:16 AM EDT [facility] LABStaff Review (MPA)Reviewed by Shelley Eugene MD08/12/2025 8:16 AM EDTCVAN WERT [facility] LABSpecimen (Source) Anatomical Location / LateralityCollection Method / VolumeCollection Time Received TimeBloodBLOOD SPECIMEN / UnknownVenipuncture / Bgxhsxi7308/10/2025 3:30 PM EDT1 3:30 PM EDT Narrative Authorizing ProviderResult TypeResult StatusAdarsh Vennepureddy MDLABORATORY Final ResultPerforming OrganizationAddressCity/State/ZIP CodePhone Number [facility] [address] [place] [phone], * PROTEIN, TOTAL (FOR SEPG) (08/10/2025 3:30 PM EDT)ComponentValueRef RangeTest MethodAnalysis TimePerformed AtPathologist SignatureProtein, Total7.06.3 - 8.0 g/dL08/11/2025 2:02 PM [facility] LABSpecimen (Source) Anatomical Location / LateralityCollection Method / VolumeCollection Time Received TimeBloodBLOOD SPECIMEN / UnknownVenipuncture / Hllpbri9508/10/2025 3:30 PM EDT1 3:30 PM EDT Narrative Authorizing ProviderResult TypeResult StatusAdars Swetha MDLABORATORY Final ResultPerforming OrganizationAddressCity/State/ZIP CodePhone Number [facility] [address] [place] [phone], * PROTEIN ELECTROPHORESIS SERUM (P) (08/10/2025 3:30 PM EDT)ComponentValueRef RangeTest MethodAnalysis TimePerformed AtPathologist SignatureAlbumin for SPE 4.093.43 - 5.41 g/dL08/12/2025 8:50 AM [facility] Alpha 1 Globulin0.280.18 - 0.43 g/dL08/12/2025 8:50 AM [facility] LABAlpha 2 Globulin0.650.42 - 0.98 g/dL08/12/2025 8:50 AM EDT [facility] LABBeta Globulin1.090.61 - 1.17 g/dL08/12/2025 8:50 AM [facility] LABGamma Globulin0.900.53 - 1.51 g/dL 08/12/2025 8:50 AM [facility] LABInterpretation (Prot Electro)No definitive M protein is identified on protein electrophoresis.No definitive M protein is identified on protein electrophoresis.08/12/2025 8:50 AM EDTCVAN [facility]ERT [facility] LABM-Protein Hiingltg13/09/2025 8:50 AM EDT [facility] LABComment:Not Applicable.M-Protein Concentration 0.00<=0.00 g/dL08/12/2025 8:50 AM [facility] LABSPE Staff ReviewReviewed by Shelley Eugene MD08/12/2025 8:50 AM [facility] LABSpecimen (Source)Anatomical Location / LateralityCollection Method / VolumeCollection TimeReceived TimeBloodBLOOD SPECIMEN / Unknown Venipuncture / Pmhykiq7808/10/2025 3:30 PM EDT1 3:30 PM EDT Narrative [facility] - 08/12/2025 8:50 AM EDT Serum electrophoresis test was performed using the Zidisha V8 NEXUS capillary electrophoresis method. Results obtained with different assay methods or kits cannot be used interchangeably. Authorizing ProviderResult TypeResult StatusAdarsh Vennepureddy MDLABORATORY Final ResultPerforming OrganizationAddressCity/State/ZIP CodePhone Number [facility] [address] * (ABNORMAL) KAPPA/LOPEZ,FREE,SER (08/10/2025 3:30 PM EDT)ComponentValueRef Range Test MethodAnalysis TimePerformed AtPathologist SignatureKappa Free, Serum36.8 (H)3.3 - 19.4 mg/L1 3:03 PM [facility] Comment: Rarely, increased serum free light chains levels may not be detected or accurately quantified due to prozone phenomenon or in high viscosity samples using this immunoturbidimetric assay. Correlation with other laboratory results and clinical findings is recommended. The [place] Free Light Chain was performed using the Binding Site Optilite immunoturbidimetric method. Result obtained with different assay methods or kits cannot be used interchangeably. Lambda Free, Serum23.95.7 - 26.3 mg/L1 3:03 PM [facility] LABComment: Rarely, increased serum free light chains [...] K/L Ratio, Serum1.540.26 - 1.6508/11/2025 3:03 PM EDTCVAN WERT [facility] LABSpecimen (Source)Anatomical Location / LateralityCollection Method / VolumeCollection TimeReceived TimeBloodBLOOD SPECIMEN / UnknownVenipuncture / Ljyhhgc9208/10/2025 3:30 PM EDT1 3:30 PM EDT Narrative Authorizing ProviderResult TypeResult StatusAdarobertolucie Posada MDLABORATORY Final ResultPerforming OrganizationAddressCity/State/ZIP CodePhone Number [facility] [address] [place] [address], * (ABNORMAL) VITAMIN B12 (08/10/2025 3:30 PM EDT)ComponentValueRef RangeTest MethodAnalysis TimePerformed AtPathologist SignatureVitamin B12>2,000(H)232 - 1,245 pg/mL08/11/2025 2:17 PM EDTCVAN WERT [facility] LABSpecimen (Source)Anatomical Location / LateralityCollection Method / VolumeCollection TimeReceived TimeBloodBLOOD SPECIMEN / UnknownVenipuncture / Owetwhg9208/10/2025 3:30 PM EDT1 3:30 PM EDT Narrative Authorizing ProviderResult TypeResult StatusAdalaverne Posada MDLABORATORY Final ResultPerforming OrganizationAddressty/State/ZIP CodePhone Number [facility] [address] [place] [address], * THYROID STIMULATING HORMONE (08/10/2025 3:30 PM EDT)ComponentValueRef Range Test MethodAnalysis TimePerformed AtPathologist SignatureTSH3.9400.270 - 4.200 mIU/L1 1:48 PM EDAVITA [facility] LABSpecimen (Source) Anatomical Location / LateralityCollection Method / VolumeCollection Time Received TimeBloodBLOOD SPECIMEN / UnknownVenipuncture / Rxlchei7908/10/2025 3:30 PM EDT1 3:30 PM EDT Narrative Authorizing ProviderResult TypeResult StatusAdarsh Swetha MDLABORATORY Final ResultPerforming OrganizationAddressCity/State/ZIP CodePhone Number [facility] [address] [place] [phone], [place] * IRON AND TIBC (08/10/2025 3:30 PM EDT)ComponentValueRef RangeTest Method Analysis TimePerformed AtPathologist WfnldcfuaBneb0149 - 186 ug/dL08/11/2025 1:41 PM EDTCVAN W[facility] MSKXDQO759879 - 386 ug/dL08/11/2025 1:41 PM EDTCVAN [facility] LABTransferrin Bvfcgepyez12.015.0 - 57.0 %08/11/2025 1:41 PM EDTCVAN WERT [facility] LABSpecimen (Source) Anatomical Location / LateralityCollection Method / VolumeCollection Time Received TimeBloodBLOOD SPECIMEN / UnknownVenipuncture / Btmlnhp4908/10/2025 3:30 PM EDT1 3:30 PM EDT Narrative Authorizing ProviderResult TypeResult StatusAdarsh Swetha MDLABORATORY Final ResultPerforming OrganizationAddressCity/State/ZIP CodePhone Number [facility] [address] [place] [phone], [place] * HAPTOGLOBIN (08/10/2025 3:30 PM EDT)ComponentValueRef RangeTest MethodAnalysis TimePerformed AtPathologist YpteghceqNmqvibdzfwk69921 - 238 mg/dL08/11/2025 1:41 PM EDTCVAN WERT [facility] LABSpecimen (Source)Anatomical Location / LateralityCollection Method / VolumeCollection TimeReceived Time BloodBLOOD SPECIMEN / UnknownVenipuncture / Xttjzzr3508/10/2025 3:30 PM EDT 08/10/2025 3:30 PM EDT Narrative Authorizing ProviderResult TypeResult StatusAdarsh Pollyureddy MDLABORATORY Final ResultPerforming OrganizationAddressCity/State/ZIP CodePhone Number [facility] [address] [place] [phone], [place] * FOLATE, SERUM (08/10/2025 3:30 PM EDT)ComponentValueRef RangeTest Method Analysis TimePerformed AtPathologist SignatureFolate>20.0>4.7 ng/mL08/11/2025 2:17 PM EDAVITA [facility] LABComment: A result of > 20 ng/mL is not necessarily indicative of a pathologic or treatable condition: it reflects a limitation of the test methodology. Assay reference range: 4.8 to 24.2 ng/mL. Suitable for detection of folate deficiency. Reference: Folate III (Folate III) [package insert V 1.0 [place]anian]. [employer], [place], [place]: September 2015. Specimen (Source)Anatomical Location / LateralityCollection Method / Volume Collection TimeReceived TimeBloodBLOOD SPECIMEN / UnknownVenipuncture / Unknown 08/10/2025 3:30 PM EDT1 3:30 PM EDT Narrative Authorizing ProviderResult TypeResult StatusAdarsh Swetha MDLABORATORY Final ResultPerforming OrganizationAddressCity/State/ZIP CodePhone Number [facility] [address] [place] [address], [place] * (ABNORMAL) FERRITIN (08/10/2025 3:30 PM EDT)ComponentValueRef RangeTest Method Analysis TimePerformed AtPathologist XaamadqesLttcllyp169.0(H)14.7 - 205.1 ng/mL08/11/2025 1:48 PM EDTCVAN WERT [facility] LABSpecimen (Source) Anatomical Location / LateralityCollection Method / VolumeCollection Time Received TimeBloodBLOOD SPECIMEN / UnknownVenipuncture / Dutsfwf4108/10/2025 3:30 PM EDT1 3:30 PM EDT Narrative Authorizing ProviderResult TypeResult StatusAdarsh Swetha MDLABORATORY Final ResultPerforming OrganizationAddressCity/State/ZIP CodePhone Number [facility] [address] [place] [address], * CA 15-3 BLD (08/10/2025 3:30 PM EDT)ComponentValueRef RangeTest MethodAnalysis TimePerformed AtPathologist SignatureBreast CA 15-317.0<26.0 U/mL08/11/2025 2:02 PM EDTCVAN WERT COUNTY [facility] LABComment:The CA 15-3 test methodology used is the Electrochemiluminescence Immunoassay by [employer].Results obtained with different methods or kits cannot be used interchangeably.Specimen (Source)Anatomical Location / LateralityCollection Method / VolumeCollection TimeReceived TimeBloodBLOOD SPECIMEN / Unknown Venipuncture / Zwwpgao8708/10/2025 3:30 PM EDT1 3:30 PM EDT Narrative Authorizing ProviderResult TypeResult StatusAdarsh Vennepureddy MDLABORATORY Final ResultPerforming OrganizationAddressCity/State/ZIP CodePhone Number [facility] [address] [facility] Desk [address] * EXTERNAL IMAGING (07/27/2025 1:54 PM EDT)Anatomical [...] ProviderResult TypeResult StatusExternal Provider PA-CLABORATORY Final Result from Last 3 Months Insurance * Guarantor: Nadia Schuler TypeRelation to PatientDate of BirthPhone Billing AddressSelf [id number] [address] [place] [id number] Care Teams Team MemberRelationshipSpecialtyStart DateEnd Date Cassie Tejada MD [address] [place] [phone] PCP - GeneralFamily Medicine01/08/12 Astrid Person PA-C [address] [place] [id number] Neurology07/27/25
--- OUTSIDE RECORDS SUMMARY | 2025-10-25 12:22 | XMS_ITS | Clinical Summary ---
Author Organization [facility] Address [address] [place] [address] Care Team Providers Care Cover Cutter Machine Name Role Phone Cassie Tejada MD Primary Care Provider [phone] Allergies No known active allergies Medications MedicationSigDispense [...] 4 times daily.ctive Active Problems ProblemNoted DateDiagnosed TpqcVmyyezclgze48/28/2023ritical polytrauma 03/14/2023cute kidney cjalys2902/15/2023cute on chronic muulsz3502/15/2023Elevated CK02/15/20233173Cnqnpedzqjzai94/14/2023Serum ammonia gkaxqpkcx39/14/2023 Qcbqlcnslzmsujxdrw32/14/2023Traumatic abdominal kvsczr2802/15/2023Splenic laceration, grade II02/15/2023losed fracture of multiple ribs of both sides 02/15/2023Flail chest02/15/2023Traumatic ybihxzhvpwtt03/14/2023Right Lumbar (L1, L2) transverse process gmaqfjki68/14/2023Lactic olkqenkh94/14/2023Metabolic hjawhtlg29/14/7291Postfmnumckf54/14/9592Qmhnsfazhludydep58/14/2023oagulopathy 02/15/2023ontusion of both lungs02/15/2023Tobacco abuse02/15/2023Shock 02/15/2023cute respiratory failure with elmplzv4702/15/20236550Yfwfvannegdw87/14/2023 Gpdkeo2902/11/2023 Resolved Problems ProblemNoted DateDiagnosed DateResolved DateAnemia, blood loss02/15/2023 02/15/2023 Immunizations ImmunizationAdministration DatesNext DueHIB Vaccine, PRP-OMP02/25/2023 Meningococcal B,RECOMB ADJ (MenB-4C) XWLDCKG9902/25/2023Meningococcal Vaccine (Oligosaccharide) ACW&Y-135 (MENVEO)02/25/2023neumococcal Conjugate 20-Valent Itvqjqi0002/25/2023 Social History Tobacco UseTypesPacks/DayYears UsedDateSmoking Tobacco: FpgrkfWmhhwbbthp6Ngry: 2008Smokeless Tobacco: Never Tobacco Cessation:Counseling Given: Not [...] Date RecordedSex Assigned at BirthNot on fileLegal RwfCeytgu97/09/2023 7:17 PM EDTGender IdentityNot on fileSexual OrientationNot on file Last Filed Vital Signs Vital SignReadingTime TakenCommentsBlood Ytiayoya75/4606 8:11 AM EDT Svffh221905/03/2023 8:11 AM OXOPnkrdjkpdvr80 ??C (98.6 ??F)05/03/2023 8:11 AM EDT Respiratory Grok199605/03/2023 8:11 AM EDTOxygen Vwyfrreqve93%05/03/2023 8:11 AM EDTInhaled Oxygen Concentration--Bafcuq17.7 kg (111 lb 11.2 oz)04/29/2023 1:33 AM YSFPigdeg894.8 cm (4' 11.37 )04/30/2023 3:02 PM EDTper chartBody Mass Index 22.2805 11:46 PM EDT Plan of Treatment Health MaintenanceDue DateLast DoneCommentsDEXA SCAN MDLBYTCSFN1949 HEPATITIS C VIRUS INOXRAWGQ21/20/8425ECBTTLN1949TDAP (ADULT)1968 CERVICAL CANCER SCREENING EGKBBEQGWH26/20/1970MAMMOGRAM SCREENING DISCUSSION 1989COLORECTAL CANCER SCREENING JNWHEJPBWO08/20/1994ZOSTER (SHINGLES) VACCINE (1 of 2)1999RSV VACCINE (1 - 1-dose 75+ series)4COVID-19 VACCINE ( season)506/01/2022, 09/03/2021, 01/06/2021, Additional history existsINFLUENZA VACCINE (#1)509/06/2022, 07/12/2021, 11/16/2019, Additional history existsPNEUMOCOCCAL VACCINE SERIESCompleted 02/25/2023, 07/22/2022, 08/04/2020, Additional history existsHEP B VACCINEAged OutNo longer eligible based on patient's age to complete this topic Additional Health Concerns InfectionOnset DateLast AwpbltrksUEW48/22//01/2023 Insurance on file on file Advance Directives For more information, please contact: [phone] (7:30 AM - 6PM [facility], Saturday-Saturday) TypeDate RecordedPatient RepresentativeExplanationHealthCare Power of Foreman/Project Manager 04/17/2023 * Full Code (Latest Code Status [...]
--- NOTE | 2025-10-25 13:19 | PM.CN ---
Consult Note: HPI Data of Consult Patient: known to practice within the last 3 years Consult date: 10/25/25 Requesting Physician: Vishnu Aly MD Primary Care Provider: Cassie Tejada MD Consult Narrative Reason for consult: midback pain Narrative: 75yof who presents for assessment. longstanding midback pain >6 months. recent thoracic mri reviewed, no acute fractures noted, though multilevel degenerative changes and spondylosis appreciated, worst at t7-8. has continued in a series of provider directed home exercise program >6 weeks, without benefit. uses otc meds as needed. cc:: CC: Vishnu Aly MD Review of Systems ROS Status of ROS 10 or more systems reviewed and unremarkable except as noted in history and below PFSH PFS Medical History Breast cancer ?C50.919 - Malignant neoplasm of unspecified site of unspecified female breast (ICD-10) Heart murmur ?R01.1 - Cardiac murmur, unspecified (ICD-10) High cholesterol ?E78.00 - Pure hypercholesterolemia, unspecified (ICD-10) Surgical History History of bladder suspension procedure ?Z98.890 - Other specified postprocedural states (ICD-10) ?Z87.448 - Personal history of other diseases of urinary system (ICD-10) History of knee surgery ?Z98.890 - Other specified postprocedural states (ICD-10) History of colostomy reversal ?Z98.890 - Other specified postprocedural states (ICD-10) Social History Little interest or pleasure in doing things: not at all Feeling down, depressed, or hopeless: not at all Meds Home Medications and Allergies Home Medications ?Medication ?Instructions ?Recorded ?Confirmed ?Type propranolol 80 mg tablet 80 mg PO Q12H 04/22/25 09/13/25 History topiramate 100 mg tablet 100 mg PO Q12H 04/22/25 09/13/25 History aspirin 81 mg tablet 81 mg PO DAILY 07/22/25 09/13/25 History biotin 1 mg capsule 1 mg PO DAILY 07/22/25 09/13/25 History calcium carbonate (Calcium 600) 300 mg PO DAILY 07/22/25 09/13/25 History meloxicam 7.5 mg tablet 7.5 mg PO BID PRN pain #60 tabs 07/22/25 09/13/25 Rx multivitamin (Daily Multi-Vitamin 1 tab PO DAILY 07/22/25 09/13/25 History tablet) vitamin B complex (Vitamins B 1 tab PO DAILY 07/22/25 09/13/25 History Complex tablet) meloxicam 7.5 mg tablet 7.5 mg PO BID #60 tabs 09/09/25 09/13/25 Rx Allergies Allergy/AdvReac Type Severity Reaction Status Date / Time No Known Drug Allergies Allergy Verified 09/13/25 11:00 Exam Narrative Exam Narrative: Psych-alert and oriented x 3. Attentive and appropriate, constitutionally normal, displays normal mood and affect per situation.? There are no obvious deficits in memory, reasoning, or intellect.? Skin-no obvious rashes, bruising, erythema noted to the patient's area of pain. Extremities- extremities are warm with minimal edema and palpable pulses. Thoracic - tenderness to palpation noted in the thoracic spine and paraspinal musculature.? Pain is elicited with extension, and lateral rotation of the thoracic spine. Range of motion is slightly diminished with these motions due to pain. Facet loading maneuvers are positive bilaterally and do appear to be concordant with the patient's normal complaints of pain.? Coordination remains intact.? Gait remains non-antalgic. Assessment and Plan Assessment and Plan (1) Thoracic spondylosis: Plan 75yof who presents for assessment. failed conservative measures, as noted. imaging reviewed, as noted. given symptoms and imaging, prudent to attempt diagnostic bilateral t7-8, 8-9 medial branch block under fluoroscopic guidance with the intention of proceeding to radiofrequency ablation. she is in agreement. meds reviewed, no changes. follow up after procedure.
== END 2025-10-25 12:20 | disposition home or self-care (01) ==
LOC: PM 12:19
PROVIDERS: PCP Family Medicine; Visit Provider Anesthesiology
DX: M47.814 Spondylosis without myelopathy or radiculopathy, thoracic region (principal)
CPT/HCPCS: G0463